=== PATIENT | female | born 1975 | race Caucasian/White ===

== ENCOUNTER 2024-08-05 13:38 | Outpatient (CLI) | payer OTHER, SELFPAY ==
--- NOTE | 2024-08-05 14:46 | ECG_ITS ---
Test Date: 2024-08-05 15:02:47 Measurements Intervals [place] Rate: 82 P: 26 NM: 124 QRS: -50 QRSD: 90 T: -15 QT: 367 QTc: 431 Interpretive Statements SINUS RHYTHM INCOMPLETE RIGHT BUNDLE BRANCH BLOCK LOW QRS VOLTAGE IN PRECORDIAL LEADS LEFT ANTERIOR FASCICULAR BLOCK POOR R WAVE PROGRESSION, CONSIDER ANTERIOR INFARCT BORDERLINE ST-T WAVE ABNORMALITY- ANTERAOLAT/INF LEADS ABNORMAL ECG No previous ECG available for comparison Electronically Signed On 08-05-2024 15:39:46 NUMEROLOGIST by Gagandeep Card D.O.
[2024-08-05 15:16] LABS: Basophils Absolute Auto 0.1 K/mm3 (0.0-0.1); Basophils Percent Auto 0.9 % (0.2-1.2); Eosinophils Absolute Auto 0.3 K/mm3 (0-0.3); Eosinophils Percent Auto 2.5 % (0-4.4); Hematocrit 44.6 % (37.0-47.0); Immature Granulocyte Absolute 0.08 K/mm3 (0.00-0.031); Immature Granulocyte Percent A 0.7 % (0-0.5); Lymphocytes Absolute Auto 3.24 K/mm3 (0.9-3.2); Mean Corpuscular HGB Conc 31.4 g/dl (32-36); Mean Corpuscular Hemoglobin 27.6 pg (26-34); Mean Platelet Volume 11.1 fl (7.4-10.4); Monocytes Absolute Auto 0.7 K/mm3 (0.1-0.6); Monocytes Percent Auto 6.4 % (2.6-8.5); Neutrophils Absolute Auto 6.8 K/mm3 (1.3-6.7); Neutrophils Percent Auto 60.5 % (45.5-73.1); Platelet Count Result 288 k/mm3 (150-375); Red Blood Count 5.07 M/mm3 (4.2-5.4); Red Cell Distribution Width 13.2 % (11.5-14.5); White Blood Count 11.2 K/mm3 (4.5-10.0)
[2024-08-05 15:33] LABS: Albumin Level 4.3 g/dL (3.5-5.1)
[2024-08-05 15:38] LABS: Urine Cotinine NEGATIVE
[2024-08-05 15:39] LABS: Anion Gap 6 mmol/L (4-12); Blood Urea Nitrogen 7 mg/dL (7-17); Calcium 8.9 mg/dL (8.4-10.2); Carbon Dioxide 27 mmol/L (22-30); Chloride 103 mmol/L (98-107); Estimated Glomerular Filt Rate > 60; Glucose 87 mg/dL (65-110); Potassium 3.5 mmol/L (3.4-5.0); Sodium 136 mmol/L (137-145)
[2024-08-05 16:27] LABS: MRSA (PCR) NOT DETECTED (NOT DETECTE)
== END 2024-08-05 13:39 | disposition home or self-care (01) ==
PROVIDERS: Anesthesiology; PCP Family Medicine; Visit Provider Orthopaedic Surgery
DX: M17.11 Unilateral primary osteoarthritis, right knee (principal); I10 Essential (primary) hypertension; Z01.818 Encounter for other preprocedural examination
CPT/HCPCS: 36415; 80048; 80307; 82040; 85025; 86850; 86900; 86901; 87641; 93005

== ENCOUNTER 2024-10-13 12:09 | Outpatient (CLI) | payer BC, SELFPAY ==
[2024-10-13 12:42] LABS: Basophils Absolute Auto 0.1 K/mm3 (0.0-0.1); Basophils Percent Auto 1.4 % (0.2-1.2); Eosinophils Absolute Auto 0.2 K/mm3 (0-0.3); Eosinophils Percent Auto 2.7 % (0-4.4); Hematocrit 45.4 % (37.0-47.0); Hemoglobin 14.5 g/dL (12.0-15.0); Immature Granulocyte Absolute 0.04 K/mm3 (0.00-0.031); Immature Granulocyte Percent A 0.5 % (0-0.5); Lymphocytes Absolute Auto 2.18 K/mm3 (0.9-3.2); Lymphocytes Percent Auto 28.1 % (18.3-44.2); Mean Corpuscular HGB Conc 31.9 g/dl (32-36); Mean Corpuscular Hemoglobin 28.2 pg (26-34); Mean Corpuscular Volume 88.3 fl (80-100); Mean Platelet Volume 10.7 fl (7.4-10.4); Monocytes Absolute Auto 0.5 K/mm3 (0.1-0.6); Monocytes Percent Auto 5.8 % (2.6-8.5); Neutrophils Absolute Auto 4.8 K/mm3 (1.3-6.7); Neutrophils Percent Auto 61.5 % (45.5-73.1); Platelet Count Result 285 k/mm3 (150-375); Red Blood Count 5.14 M/mm3 (4.2-5.4); White Blood Count 7.8 K/mm3 (4.5-10.0)
[2024-10-13 12:52] LABS: Anion Gap 9 mmol/L (4-12); Blood Urea Nitrogen 13 mg/dL (7-17); Calcium 8.7 mg/dL (8.4-10.2); Carbon Dioxide 24 mmol/L (22-30); Chloride 106 mmol/L (98-107); Estimated Glomerular Filt Rate > 60; Glucose 88 mg/dL (65-110); Potassium 4.2 mmol/L (3.4-5.0); Sodium 139 mmol/L (137-145)
[2024-10-13 12:59] LABS: Urine Cotinine NEGATIVE
[2024-10-13 13:49] LABS: MRSA (PCR) NOT DETECTED (NOT DETECTE)
== END 2024-10-13 12:10 | disposition home or self-care (01) ==
LOC: ANHSURGERY 12:11
PROVIDERS: Anesthesiology; PCP Family Medicine; Visit Provider Orthopaedic Surgery
DX: M17.11 Unilateral primary osteoarthritis, right knee (principal); Z01.818 Encounter for other preprocedural examination
CPT/HCPCS: 36415; 80048; 80307; 82040; 85025; 86850; 86900; 86901; 87641

== ENCOUNTER 2024-10-26 02:50 | Day surgery (SDC) | payer BC, SELFPAY ==
--- NOTE | 2024-08-05 13:46 | PC.NURSE ---
Report to the Outpatient Waiting Room, entrance under the green pavilion located off [facility], at time _6 AM on date _08/15/24 . Planned Procedure Time: _7:30 AM .? Time changes happen often and if your time is changed the preop area will call you the afternoon before. - You and your visitor will be asked to self-screen and do not enter if you have any COVID symptoms. Please call surgeon if you need to reschedule. - A mask is optional within the hospital at this time. Patients may have clear liquids (water, carbonated beverages, clear teas, apple juice) until 3 hours prior to surgery( 4:30 AM) with a maximum of 20 ounces. - No food from midnight until time of surgery and no smoking. This includes no chewing gum, candy or mints. - Infants may have breast milk until 4 hours before surgery, infant formula 6 hours prior to surgery. - Children will be allowed to drink immediately following surgery.? If applicable, please bring a bottle or sippy cup to assist with drinking. Juice, water, soda, and popsicles are readily available.? For infants on formula, please bring formula the day of surgery.? Pacifiers are allowed. Take only the following medications with a SIP of water on the morning of surgery: __AMLODIPINE,BUSPIRONE,CITALOPRAM,QUETIAPINE DO NOT STOP ANY OF YOUR OTHER PRESCRIPTION MEDICATIONS PRIOR TO SURGERY EXCEPT THE FOLLOWING Medications to discontinue per physician ___MELOXICAM PER DR GARRIDO Please no make-up, nail egyptian, hairspray, perfume, deodorant, or body powder the day of surgery.? No jewelry (including any body piercings) or valuables the day of surgery, leave them at home.? Please take a shower or bath the night before, or the morning of, surgery with an antibacterial soap.? Wear comfortable, loose fitting clothing.? Children are encouraged to wear pajamas. - Jewelry must be removed prior to entering the operating room.? Rings and piercings that are not removed may be cut off. - The hospital will not accept responsibility for valuables.? - Please leave all valuables, including medications, at home the day of surgery. If you are going home after surgery, a licensed student truck driver must drive you home.? - NO public transportation without another adult if you receive anesthesia. - We recommend that an adult stay with you for 24 hours following discharge. - We also recommend that you do not drive, make important decision, drink alcoholic beverages, or take any drugs that were not prescribed by your health care provider for at least 24 hours after your discharge time. Follow any additional instructions given to you from your surgeon. VERBAL AND WRITTEN instructions given to _PATIENT and asked if any additional questions and then verbalized understanding. Patient advised to call surgeon office or pre surgery nurse liaison [phone] if any additional questions.
[2024-08-05 13:52] VITALS: BMI 39.1
[2024-08-05 14:45] VITALS: BP 171/93; PULSE 87; RESP 18; TEMP 37.1; O2SAT 99
--- NOTE | 2024-08-11 07:24 | PM.IMHP ---
H&P: HPI History of Present Illness Date/Time: 08/11/24 07:24 Chief Complaint: Patient has osteoarthritis of her right knee. She has been unresponsive to conservative treatment. She is to the point where she would like to consider knee replacement surgery. Will proceed per her request. Review of Systems Musculoskeletal: Musculoskeletal: Reports arthralgias, Reports joint swelling and Reports stiffness PMFSH Past Medical History Medical History Hypoglycemia Family History Family History Mother Family history of migraine headaches Father No problems noted. Sibling No problems noted. Social History Social History (Updated 07/19/24 @ 07:41 by Merary Navarro CMA) Smoking status: Never smoker Second hand tobacco smoke exposure: Yes Additional smoking assessment comments: DENIES ANY FORM OF TOBACCO USE Alcohol intake: never Substance use: never Substance use type: does not use Do You Feel Safe in your Home?: Yes Lack of Transportation: No Lack of Food: Sometimes True Current Housing: I Have Housing Concerned About Future Housing: No Difficulty Paying Gas/Electric Bills: No Difficulty Paying for Meds: No Currently Unemployed: No Education: High School Diploma/GED Difficulty w/ Childcare or Family Care: No Living arrangements: with family Occupation/Education: occupation Additional occupation/education comments: [employer] Gender identity (if verbalized by the patient): Female Spiritual care concerns: No Meds Home Medications and Allergies Home Medications Medication Instructions Recorded Confirmed Type amlodipine 5 mg tablet 5 mg PO DAILY 06/16/24 08/05/24 History citalopram 40 mg tablet 40 mg PO QAM 06/16/24 08/05/24 History cyclobenzaprine 10 mg tablet 10 mg PO PRN PRN Muscle Pain 06/16/24 08/05/24 History fluticasone propionate 50 2 spray intranasal PRN PRN Allergy 06/16/24 08/05/24 History mcg/actuation nasal Symptoms spray,suspension hydrochlorothiazide 25 mg tablet 25 mg PO HS 06/16/24 08/05/24 History loratadine 10 mg tablet 10 mg PO DAILY 06/16/24 08/05/24 History meloxicam 7.5 mg tablet 7.5 mg PO DAILY 06/16/24 08/05/24 History metronidazole 0.75 % topical gel 0.75 applic topical PRN PRN ROSACEA 06/16/24 08/05/24 History ondansetron 8 mg disintegrating 8 mg PO PRN PRN Nausea 06/16/24 08/05/24 History tablet quetiapine 25 mg tablet 25 mg PO QAM 06/16/24 08/05/24 History sumatriptan succinate 50 mg tablet 50 mg PO PRN PRN Migraine Headache 06/16/24 08/05/24 History tramadol 50 mg tablet 50 mg PO PRN PRN Pain 06/16/24 08/05/24 History buspirone 10 mg tablet 10 mg PO DAILY 08/05/24 08/05/24 History polyethylene glycol 3350 17 17 g PO DAILY 08/05/24 08/05/24 History gram/dose oral powder spironolactone 25 mg tablet 25 mg PO DAILY 08/05/24 08/05/24 History Allergies Allergy/AdvReac Type Severity Reaction Status Date / Time No Known Allergies Allergy Verified 08/05/24 13:53 Exam Narrative: Patient has pain with any manipulation of her knee. She has motion from about 3-110 degrees. She has varus deformity and grinding crepitus and pain. She walks with an antalgic gait. Eyes: General: appearance normal, both eyes and all related structures Neck: Neck: supple Resp: Effort & Inspection: normal respiratory effort Cardio: Rate: regular rate Rhythm: regular rhythm Radiology Reports: Comments: 06/16/24 07:02 XR knee RT 3V Routine Interpretation: AP lateral skyline view right knee demonstrates cfkh-no-xsia arthritis medially. No fracture, lesions, or masses are appreciated. Knee X-Ray 06/16/24 Orthopedics Result Report 06/16/24 Assessment and Plan Assessment and plan (1) Osteoarthritis of right knee: Code(s): M17.11 - Unilateral primary osteoarthritis, right knee Status: Acute Assessment and Plan: Patient has osteoarthritis of her right knee. She has aebx-qf-vfef change with varus deformity. She has failed conservative treatment like to consider knee replacement surgery. Discussed this with her in detail risks benefits limitations and alternatives. Will proceed per her request.
[2024-10-13 08:58] VITALS: BMI 37.8
--- NOTE | 2024-10-13 09:22 | PC.NURSE ---
Report to the Outpatient Waiting Room, entrance under the green pavilion located off [facility], at time ___6:00AM____ on date ___10/26/24____. Planned Procedure Time: ___7:30AM .? Time changes happen often and if your time is changed the preop area will call you the afternoon before. - You and your visitor will be asked to self-screen and do not enter if you have any COVID symptoms. Please call surgeon if you need to reschedule. - A mask is optional within the hospital at this time. Patients may have clear liquids (water, carbonated beverages, clear teas, apple juice) until 3 hours prior to surgery with a maximum of 20 ounces. - No food from midnight until time of surgery and no smoking. This includes no chewing gum, candy or mints. Take only the following medications with a SIP of water on the morning of surgery: ____AMLODIPINE, BUSPIRONE, CITALOPRAM DO NOT STOP ANY OF YOUR OTHER PRESCRIPTION MEDICATIONS PRIOR TO SURGERY EXCEPT THE FOLLOWING Medications to discontinue per physician ____HOLD MELOXICAM 7 DAYS PRE-OP PER DR GARRIDO Date to take last dose 10/18/24 Please no make-up, nail vietnamese, hairspray, perfume, deodorant, or body powder the day of surgery.? No jewelry (including any body piercings) or valuables the day of surgery, leave them at home.? Please take a shower or bath the night before, or the morning of, surgery with an antibacterial soap.? Wear comfortable, loose fitting clothing.? . - Jewelry must be removed prior to entering the operating room.? Rings and piercings that are not removed may be cut off. - The hospital will not accept responsibility for valuables.? - Please leave all valuables, including medications, at home the day of surgery. If you are going home after surgery, a licensed charter coach driver must drive you home.? - NO public transportation without another adult if you receive anesthesia. - We recommend that an adult stay with you for 24 hours following discharge. - We also recommend that you do not drive, make important decision, drink alcoholic beverages, or take any drugs that were not prescribed by your health care provider for at least 24 hours after your discharge time. Follow any additional instructions given to you from your surgeon. Telephone instructions given to ____PATIENT and asked if any additional questions and then verbalized understanding. Patient advised to call surgeon office or pre surgery nurse liaison [phone] if any additional questions.
--- NOTE | 2024-10-25 08:36 | P.HP_ITS ---
H&P: HPI History of Present Illness Date/Time: 10/25/24 08:36 Chief Complaint: Patient has hzri-sx-rrwa arthritis right knee. She has failed conservative treatment like to proceed with knee replacement surgery. Review of Systems Musculoskeletal: Musculoskeletal: Reports arthralgias, Reports joint swelling and Reports stiffness Neurologic: Reports abnormal gait [facility] Past Medical History Medical History Hypoglycemia Family History Family History Mother Family history of migraine headaches Father No problems noted. Sibling No problems noted. Social History Social History (Updated 07/19/24 @ 07:41 by Merary Navarro [facility]) Smoking status: Never smoker Second hand tobacco smoke exposure: Yes Additional smoking assessment comments: DENIES ANY FORM OF TOBACCO USE Alcohol intake: never Substance use: never Substance use type: does not use Do You Feel Safe in your Home?: Yes Lack of Transportation: No Lack of Food: Sometimes True Current Housing: I Have Housing Concerned About Future Housing: No Difficulty Paying Gas/Electric Bills: No Difficulty Paying for Meds: No Currently Unemployed: No Education: High School Diploma/GED Difficulty w/ Childcare or Family Care: No Living arrangements: with friend(s) Additional living arrangements comments: 2 ROOMMATES Occupation/Education: occupation Additional occupation/education comments: [employer] Gender identity (if verbalized by the patient): Female Spiritual care concerns: No Meds Home Medications and Allergies Home Medications ?Medication ?Instructions ?Recorded ?Confirmed ?Type amlodipine 5 mg tablet 5 mg PO DAILY 06/16/24 08/05/24 History citalopram 40 mg tablet 40 mg PO QAM 06/16/24 08/05/24 History cyclobenzaprine 10 mg tablet 10 mg PO PRN PRN Muscle Pain 06/16/24 08/05/24 History fluticasone propionate 50 2 spray intranasal PRN PRN Allergy 06/16/24 08/05/24 History mcg/actuation nasal Symptoms spray,suspension hydrochlorothiazide 25 mg tablet 25 mg PO HS 06/16/24 08/05/24 History loratadine 10 mg tablet 10 mg PO DAILY 06/16/24 08/05/24 History meloxicam 7.5 mg tablet 7.5 mg PO DAILY 06/16/24 08/05/24 History metronidazole 0.75 % topical gel 0.75 applic topical PRN PRN ROSACEA 06/16/24 08/05/24 History ondansetron 8 mg disintegrating 8 mg PO PRN PRN Nausea 06/16/24 08/05/24 History tablet quetiapine 25 mg tablet 25 mg PO QAM PRN insomnia 06/16/24 10/13/24 History sumatriptan succinate 50 mg tablet 50 mg PO PRN PRN Migraine Headache 06/16/24 08/05/24 History tramadol 50 mg tablet 50 mg PO PRN PRN Pain 06/16/24 08/05/24 History buspirone 10 mg tablet 10 mg PO DAILY 08/05/24 08/05/24 History polyethylene glycol 3350 17 17 g PO DAILY PRN constipation 08/05/24 10/13/24 History gram/dose oral powder spironolactone 25 mg tablet 25 mg PO DAILY 08/05/24 10/13/24 History Allergies Allergy/AdvReac Type Severity Reaction Status Date / Time No Known Allergies Allergy Verified 10/13/24 08:51 Exam Narrative: Patient has motion of her knee from about 3 to 110?. She has varus deformity. She has grinding crepitus and pain with manipulation. She walks with an antalgic gait. Radiology Reports: Comments: [place] [address] Tal Greenberg M.D. Orthopedics XRay Report Ambulatory Signed Patient: Hussain Ch Results of Diagnostic Exam (Interpreted Today) Order: 06/16/24 07:02 XR knee RT 3V Routine Interpretation: AP lateral skyline view right knee demonstrates gjhu-cm-uocu arthritis medially. No fracture, lesions, or masses are appreciated. This report may have been done utilizing a voice recognition system. Attempts have been made to correct errors. However, there may be uncorrected grammatical, spelling, and recognition errors present. Documented By: Tal Greenberg MD 06/16/24 1402 Signed By: <Electronically signed by Tal Greenberg MD> 06/16/24 3217 2 Knee X-Ray 06/16/24 Orthopedics Result Report 06/16/24 Assessment and Plan Assessment and plan (1) Osteoarthritis of right knee: Code(s): M17.11 - Unilateral primary osteoarthritis, right knee Status: Acute Assessment and Plan: Patient has qkre-ik-njbx arthritis of her right knee. She failed conservative treatment and would like to proceed with knee replacement surgery. I have discussed this with her at length. We discussed risks, benefits, limitations, and alternatives in detail. She understands and agrees with and would like to proceed. Will proceed with total knee arthroplasty on the right.
[2024-10-26] VITALS (12 sets, daily range): BP systolic 116–177; BP diastolic 60–93; PULSE 88–108; RESP 12–20; TEMP 36.4–36.9; O2SAT 92–99
--- NOTE | ~2024-10-26 | XR_ITS ---
EXAMINATION: [id number] DATE: 10/26/2024 10:14 INDICATION: Postoperative evaluation following right total knee arthroplasty. TECHNIQUE: Anteroposterior and lateral views of the right knee were obtained. COMPARISON: None. FINDINGS: Right total knee arthroplasty with patellar resurfacing appears well seated and in near anatomic alig nment. No fractures identified. Anterior skin des and expected postoperative subcutaneous and in tra-articular gas. IMPRESSION: 1. Right total knee arthroplasty, negative for postoperative purposes. Reviewed, dictated and finalized at location A. ICAL SUPERVISOR
--- OUTSIDE RECORDS SUMMARY | 2024-10-26 02:53 | XMS_ITS | Encounter Summary ---
Author Organization [facility] Address [address] [place] [address] Care Team Providers Care Housekeeping Room Inspector Name Role Phone Zach Rhodes MD Primary Care Provider [phone] Encounter Details Date Type Department Care Team (Late Contact Info) Description 02/29/2024 [employer] Message Enc [facility] Medical Group Family & Internal Medicine [facility] [address] [place] [address] [place] [address] [place] [address] Insurance Social History Tobacco Use Types Packs/Day Years Used Date Smoking Tobacco: Never Smokeless Tobacco: Never Comments:no hx tobacco Alcohol Use Standard Drinks/Week Comments Yes 0 (1 standard drink = 0.6 oz pur e alcohol) RARE PHQ-2 Answer Date Recorded Patient Health Questionnaire-2 Score 6 06/11/2023 Education Answer Date Recorded What is the highest level of school you have completed or the highest degree you have received? High school graduate 11/25/2018 Comments No Sex and Gender Information Value Date Recorded Sex Assigned at Not on file Legal Sex Female 8:31 PM CDT Gender Identity Not on file Sexual Orientation Not on file Occupation Industry Job Start Date Job End Date Not on file Not on file Not on file Not on file documented as of this encounter Plan of Treatment Upcoming Encounters Date Type Department Care Team (Late Contact Info) Description 10/31/2024 1:00 PM HEAD BANDER AND LINER OPERATOR Appointment [facility] [address] [place] [address] [place] [address] [place] [address] Tal Greenberg MD [address] [facility] [address] [place] [address] 11/02/2024 1:45 PM HEAD BANDER AND LINER OPERATOR Appointment [facility] [address] [place] [address] Tal Greenberg MD [address] [facility] [address] [place] [address] Marielle Gaming, COFFEE ROASTER HELPER 11/04/2024 1:45 PM HEAD BANDER AND LINER OPERATOR Appointment [facility] [address] [place] [address] Tal Greenberg MD [facility] [address] [place] [address] Marielle Gaming, COFFEE ROASTER HELPER 11/07/2024 3:00 PM HEAD BANDER AND LINER OPERATOR Appointment [facility] [address] [place] [address] [place] [address] [place] [address] Tal Greenberg MD [address] [facility] [address] [place] [address] 11/09/2024 1:45 PM HEAD BANDER AND LINER OPERATOR Appointment [facility] [address] [place] [address] Tal Greenberg MD [address] [facility] [address] [place] [address] Marielle Gaming, COFFEE ROASTER HELPER 11/11/2024 1:45 PM HEAD BANDER AND LINER OPERATOR Appointment [facility] [address] [place] [address] Tal Greenberg MD [address] [facility] [address] [place] [address] Marielle Gaming, COFFEE ROASTER HELPER 11/14/2024 1:45 PM HEAD BANDER AND LINER OPERATOR Appointment [facility] [address] [place] [address] Tal Greenberg MD [address] [facility] [address] [place] [address] Marielle Gaming, COFFEE ROASTER HELPER 11/16/2024 1:45 PM HEAD BANDER AND LINER OPERATOR Appointment [facility] [address] [place] [address] Tal Greenberg MD [address] [facility] [address] [place] [address] [place] [address] [place] [address] 11/18/2024 1:45 PM HEAD BANDER AND LINER OPERATOR Appointment [facility] [address] [place] [address] [place] [address] [place] [address] Tal Greenberg MD [address] [facility] [address] [place] [address] 11/21/2024 1:00 PM HEAD BANDER AND LINER OPERATOR Appointment [facility] [address] [place] [address] [place] [address] [place] [address] Tal Greenberg MD [address] [facility] [address] [place] [address] 11/23/2024 1:45 PM HEAD BANDER AND LINER OPERATOR Appointment [facility] [address] [place] [address] Tal Greenberg MD [address] [facility] [address] [place] [address] Marielle Gaming PTA 11/25/2024 1:45 PM HEAD BANDER AND LINER OPERATOR Appointment [facility] [address] [place] [address] Tal Greenberg MD [address] [facility] [address] [place] [address] Marielle Gaming PTA documented as of this encounter Visit Diagnoses Not on filedocumented in this encounter Additional Health Concerns Assessment Noted Time PHQ-9 Depression Total Score: 6 06/11/20 23 9:22 AM CDT documented as of this encounter Care Teams Housekeeping Room Inspector Relationship Specialty [place] [address] [place] [address] PCP - General FAMILY PRACTICE 09/27/18 documented as of this encounter
--- OUTSIDE RECORDS SUMMARY | 2024-10-26 02:53 | XMS_ITS | Encounter Summary ---
Author Organization [facility] Address [address] [place] [address] Care Team Providers Care Band Straightener Name Role Phone Zach Rhodes MD Primary Care Provider [phone] Encounter Details Date Type Department Care Team (Late Contact Info) Description 01/20/2019 watAgamehart Message Enc [facility] Medical Group Family & Internal Medicine [facility] [address] [place] [address] [place] [address] [place] [address] RE: Medication Questions Social History Tobacco Use Types Packs/Day Years Used Date Smoking Tobacco: Never Smokeless Tobacco: Never Alcohol Use Standard Drinks/Week Comments Yes 0 (1 standard drink = 0.6 oz pur e alcohol) RARE PHQ-2 Answer Date Recorded PHQ-2 Score 0 01/19/2019 Education Answer Date Recorded What is the [...] (Late Contact Info) Description 10/31/2024 1:00 PM INDUSTRIAL LABORER Appointment [facility] [address] [place] [address] [place] [address] [place] [address] Tal Greenberg MD [address] [facility] [address] [place] [address] 11/02/2024 1:45 PM INDUSTRIAL LABORER Appointment [facility] [address] [place] [address] Tal Greenberg MD [address] [facility] [address] [place] [address] Marielle Gaming, AQUATIC CENTRE MANAGER 11/04/2024 1:45 PM INDUSTRIAL LABORER Appointment [facility] [address] [place] [address] Tal Greenberg MD [facility] [address] [place] [address] Marielle Gaming, AQUATIC CENTRE MANAGER 11/07/2024 3:00 PM INDUSTRIAL LABORER Appointment [facility] [address] [place] [address] [place] [address] [place] [address] Tal Greenberg MD [facility] [address] [place] [address] 11/09/2024 1:45 PM INDUSTRIAL LABORER Appointment [facility] [address] [place] [address] Tal Greenberg MD [address] [facility] [address] [place] [address] Marielle Gaming, AQUATIC CENTRE MANAGER 11/11/2024 1:45 PM INDUSTRIAL LABORER Appointment [facility] [address] [place] [address] Tal Greenberg MD [address] [facility] [address] [place] [address] Marielle Gaming, AQUATIC CENTRE MANAGER 11/14/2024 1:45 PM INDUSTRIAL LABORER Appointment [facility] [address] [place] [address] Tal Greenberg MD [address] [facility] [address] [place] [address] Marielle Gaming, AQUATIC CENTRE MANAGER 11/16/2024 1:45 PM INDUSTRIAL LABORER Appointment [facility] [address] [place] [address] Tal Greenberg MD [address] [facility] [address] [place] [address] [place] [address] [place] [address] 11/18/2024 1:45 PM INDUSTRIAL LABORER Appointment [facility] [address] [place] [address] [place] [address] [place] [address] Tal Greenberg MD [address] [facility] [address] [place] [address] 11/21/2024 1:00 PM INDUSTRIAL LABORER Appointment [facility] [address] [place] [address] [place] [address] [place] [address] Tal Greenberg MD [address] [facility] [address] [place] [address] 11/23/2024 1:45 PM INDUSTRIAL LABORER Appointment [facility] [address] [place] [address] Tal Greenberg MD [address] [facility] [address] [place] [address] Marielle Gaming PTA 11/25/2024 1:45 PM INDUSTRIAL LABORER Appointment [facility] [address] [place], [place] [address] Tal Greenberg MD [address] [facility] [address] [place] [address] Marielle Gaming PTA documented as of this encounter Visit Diagnoses Not on filedocumented in this encounter Additional Health Concerns Infection Onset Date Last Indicated Resolved Time COVID-19 Rule Out 09/09/2022 09/09/2022 09/09/2022 9:17 AM INDUSTRIAL LABORER documented as of this encounter Care Teams Band Straightener Relationship Specialty [place] [address] [place] [address] PCP - General FAMILY PRACTICE 09/27/18 documented as of this encounter
--- OUTSIDE RECORDS SUMMARY | 2024-10-26 02:53 | XMS_ITS | Encounter Summary ---
Author Organization [facility] Address [address] [place] [address] Care Team Providers Care Forestry Biology Specialist Name Role Phone Zach Rhodes MD Primary Care Provider [phone] Encounter Details Date Type Department Care Team (Late Contact Info) Description 11/10/2023 INDIGO Bioscienceshart Message Enc [facility] Medical Group Family & Internal Medicine [facility] [address] [place] [address] [place] [address] [place] [address] Medicane Social History Tobacco Use Types Packs/Day Years [...] (Late Contact Info) Description 10/31/2024 1:00 PM FRONT END WEB DEVELOPER Appointment [facility]hab [address] [place] [address] [place] [address] [place] [address] Tal Greenberg MD 4804 [facility] [address] [place] [address] 11/02/2024 1:45 PM FRONT END WEB DEVELOPER Appointment [facility] [address] [place] [address] Tal Greenberg MD 4804 [facility] [address] [place] [address] Marielle Gaming, PELLET PRESS OPERATOR 11/04/2024 1:45 PM FRONT END WEB DEVELOPER Appointment [facility] [address] [place] [address] Tal Greenberg MD [facility] [address] [place] [address] Marielle Gaming, PELLET PRESS OPERATOR 11/07/2024 3:00 PM FRONT END WEB DEVELOPER Appointment [facility] [address] [place] [address] [place] [address] [place] [address] Tal Greenberg MD 4804 [facility] [address] [place] [address] 11/09/2024 1:45 PM FRONT END WEB DEVELOPER Appointment [facility] [address] [place] [address] Tal Greenberg MD 4804 [facility] [address] [place] [address] Marielle Gaming, PELLET PRESS OPERATOR 11/11/2024 1:45 PM FRONT END WEB DEVELOPER Appointment [facility] [address] [place] [address] Tal Greenberg MD 4804 [facility] [address] [place] [address] Marielle Gaming, PELLET PRESS OPERATOR 11/14/2024 1:45 PM FRONT END WEB DEVELOPER Appointment [facility] [address] [place] [address] Tal Greenberg MD 4804 [facility] [address] [place] [address] Marielle Gaming, PELLET PRESS OPERATOR 11/16/2024 1:45 PM FRONT END WEB DEVELOPER Appointment [facility] [address] [place] [address] Tal Greenberg MD [facility] [address] [place] [address] [place] [address] [place] [address] 11/18/2024 1:45 PM FRONT END WEB DEVELOPER Appointment [facility] [address] [place] [address] [place] [address] [place] [address] Tal Greenberg MD 4804 [facility] [address] [place] [address] 11/21/2024 1:00 PM FRONT END WEB DEVELOPER Appointment [facility] [address] [place] [address] [place] [address] [place] [address] Tal Greenberg MD 4804 [facility] [address] [place] [address] 11/23/2024 1:45 PM FRONT END WEB DEVELOPER Appointment [facility]hab [address] [place] [address] Tal Greenberg MD 4804 [facility] [address] [place] [address] Marielle Gaming PTA 11/25/2024 1:45 PM FRONT END WEB DEVELOPER Appointment [facility]hab [address] [place] [address] Tal Greenberg MD 4804 [facility] [address] [place] [address] Marielle Gaming PTA documented as of this encounter Visit Diagnoses Not on filedocumented in this encounter Additional Health Concerns Assessment Noted Time PHQ-9 Depression Total Score: 6 06/11/20 23 9:22 AM CDT documented as of this encounter Care Teams Forestry Biology Specialist Relationship Specialty [place] [address] [place] [address] PCP - General FAMILY PRACTICE 09/27/18 documented as of this encounter
--- OUTSIDE RECORDS SUMMARY | 2024-10-26 02:53 | XMS_ITS | Encounter Summary ---
Author Organization [facility] Address [address] [place] [address] Care Team Providers Care Machinist Brake Name Role Phone Zach Rhodes MD Primary Care Provider [phone] Encounter Details Date Type Department Care Team (Late st Contact Info) Description 10/06/2019 MyChart Message Enc [facility] Medical Group Family & Internal Medicine [facility] [address] [place] [address] [place] [address] [place] [address] RE: Other Social History Tobacco Use Types Packs/Day Years [...] Encounters Date Type Department Care Team (Late st Contact Info) Description 10/31/2024 1:00 PM MENSWEAR SALESPERSON Appointment [facility]hab [address] [place] [address] [place] [address] [place] [address] Tal Greenberg MD 4804 [facility] [address] [place] [address] 11/02/2024 1:45 PM MENSWEAR SALESPERSON Appointment [facility] [address] [place] [address] Tal Greenberg MD 4804 [facility] [address] [place] [address] Marielle Gaming, BPM SOLUTION ARCHITECT 11/04/2024 1:45 PM MENSWEAR SALESPERSON Appointment [facility] [address] [place] [address] Tal Greenberg MD [facility] [address] [place] [address] Marielle Gaming, BPM SOLUTION ARCHITECT 11/07/2024 3:00 PM MENSWEAR SALESPERSON Appointment [facility] [address] [place] [address] [place] [address] [place] [address] Tal Greenberg MD 4804 [facility] [address] [place] [address] 11/09/2024 1:45 PM MENSWEAR SALESPERSON Appointment [facility] [address] [place] [address] Tal Greenberg MD 4804 [facility] [address] [place] [address] Marielle Gaming, BPM SOLUTION ARCHITECT 11/11/2024 1:45 PM MENSWEAR SALESPERSON Appointment [facility] [address] [place] [address] Tal Greenberg MD 4804 [facility] [address] [place] [address] Marielle Gaming, BPM SOLUTION ARCHITECT 11/14/2024 1:45 PM MENSWEAR SALESPERSON Appointment [facility] [address] [place] [address] Tal Greenberg MD 4804 [facility] [address] [place] [address] Marielle Gaming, BPM SOLUTION ARCHITECT 11/16/2024 1:45 PM MENSWEAR SALESPERSON Appointment [facility] [address] [place] [address] Tal Greenberg MD 5154 [facility] [address] [place] [address] [place] [address] [place] [address] 11/18/2024 1:45 PM MENSWEAR SALESPERSON Appointment [facility] [address] [place] [address] [place] [address] [place] [address] Tal Greebnerg MD 4806 [facility] [address] [place] [address] 11/21/2024 1:00 PM MENSWEAR SALESPERSON Appointment [facility] [address] [place] [address] [place] [address] [place] [address] Tal Greenberg MD 2274 [facility] [address] [place] [address] 11/23/2024 1:45 PM MENSWEAR SALESPERSON Appointment [facility]hab [address] [place] [address] Tal Greenberg MD 4804 [facility] [address] [place] [address] Marielle Gaming PTA 11/25/2024 1:45 PM MENSWEAR SALESPERSON Appointment [facility]patient [facility]hab [address] [place], [place] [address] Tal Greenberg MD 4804 [facility] [address] [place] [address] Marielle Gaming PTA documented as of this encounter Visit Diagnoses Not on filedocumented in this encounter Additional Health Concerns Infection Onset Date Last Indicated Resolved Time COVID-19 Rule Out 09/09/2022 09/09/2022 09/09/2022 9:17 AM MENSWEAR SALESPERSON documented as of this encounter Care Teams Machinist Brake Relationship Specialty [place] [address] [place] [address] PCP - General FAMILY PRACTICE 09/27/18 documented as of this encounter
--- OUTSIDE RECORDS SUMMARY | 2024-10-26 02:53 | XMS_ITS | Encounter Summary ---
Author Organization [facility] Address [address] [place] [address] Care Team Providers Care Public Opinion Survey Taker Name Role Phone Zach Rhodes MD Primary Care Provider [phone] Encounter Details Date Type Department Care Team (Late Contact Info) Description 10/06/2019 MyChart Message Enc [facility] Medical Group Family & Internal Medicine [facility] [address] [place] [address] [place] [address] [place] [address] Other Social History Tobacco Use Types Packs/Day [...] (Late Contact Info) Description 10/31/2024 1:00 PM PUFF IRON OPERATOR Appointment [facility] [address] [place] [address] [place] [address] [place] [address] Tal Greenberg MD [address] [facility] [address] [place] [address] 11/02/2024 1:45 PM PUFF IRON OPERATOR Appointment [facility] [address] [place] [address] Tal Greenberg MD [address] [facility] [address] [place] [address] Marielle Gaming, FIELD MACHINIST 11/04/2024 1:45 PM PUFF IRON OPERATOR Appointment [facility] [address] [place] [address] Tal Greenberg MD [address] [facility] [address] [place] [address] Marielle Gaming, FIELD MACHINIST 11/07/2024 3:00 PM PUFF IRON OPERATOR Appointment [facility] [address] [place] [address] [place] [address] [place] [address] Tal Greenberg MD [address] [facility] [address] [place] [address] 11/09/2024 1:45 PM PUFF IRON OPERATOR Appointment [facility] [address] [place] [address] Tal Greenberg MD [address] [facility] [address] [place] [address] Marielle Gaming, FIELD MACHINIST 11/11/2024 1:45 PM PUFF IRON OPERATOR Appointment [facility] [address] [place] [address] Tal Greenberg MD [address] [facility] [address] [place] [address] Marielle Gaming, FIELD MACHINIST 11/14/2024 1:45 PM PUFF IRON OPERATOR Appointment [facility] [address] [place] [address] Tal Greenberg MD [address] [facility] [address] [place] [address] Marielle Gaming, FIELD MACHINIST 11/16/2024 1:45 PM PUFF IRON OPERATOR Appointment [facility] [address] [place] [address] Tal Greenberg MD [facility] [address] [place] [address] [place] [address] [place] [address] 11/18/2024 1:45 PM PUFF IRON OPERATOR Appointment [facility] [address] [place] [address] [place] [address] [place] [address] Tal Greenberg MD [address] [facility] [address] [place] [address] 11/21/2024 1:00 PM PUFF IRON OPERATOR Appointment [facility] [address] [place] [address] [place] [address] [place] [address] Tal Greenberg MD [facility]4 [facility] [address] [place] [address] 11/23/2024 1:45 PM PUFF IRON OPERATOR Appointment [facility] [address] [place] [address] Tal Greenberg MD [address] [facility] [address] [place] [address] Marielle Gaming PTA 11/25/2024 1:45 PM PUFF IRON OPERATOR Appointment [facility] [address] [place], [place] [address] Tal Greenberg MD [address] [facility] [address] [place] [address] Marielle Gaming PTA documented as of this encounter Visit Diagnoses Not on filedocumented in this encounter Additional Health Concerns Infection Onset Date Last Indicated Resolved Time COVID-19 Rule Out 09/09/2022 09/09/2022 09/09/2022 9:17 AM PUFF IRON OPERATOR documented as of this encounter Care Teams Public Opinion Survey Taker Relationship Specialty [place] [address] [place] [address] PCP - General FAMILY PRACTICE 09/27/18 documented as of this encounter
--- OUTSIDE RECORDS SUMMARY | 2024-10-26 02:53 | XMS_ITS | Encounter Summary ---
Author Organization [facility] Address [address] [place] [address] Care Team Providers Care Paid Search Marketing Analyst Name Role Phone Zach Rhodes MD Primary Care Provider [phone] Encounter Details Date Type Department Care Team (Late Contact Info) Description 06/11/2023 Virtual Paperhart Message Enc [facility] Medical Group Family & Internal Medicine [facility] [address] [place] [address] [place] [address] [place] [address] Xray Social History Tobacco Use Types Packs/Day Years [...] (Late Contact Info) Description 10/31/2024 1:00 PM MEDIA PROMOTER Appointment [facility] Outpatient Rehab [address] [place] [address] [place] [address] [place] [address] Tal Greenberg MD 4804 [facility] [address] [place] [address] 11/02/2024 1:45 PM MEDIA PROMOTER Appointment [facility] [address] [place] [address] Tal Greenberg MD 4804 [facility] [address] [place] [address] Marielle Gaming, RN RECOVERY 11/04/2024 1:45 PM MEDIA PROMOTER Appointment [facility] [address] [place] [address] Tal Greenberg MD [facility]4 [facility] [address] [place] [address] Marielle Gaming, RN RECOVERY 11/07/2024 3:00 PM MEDIA PROMOTER Appointment [facility] [address] [place] [address] [place] [address] [place] [address] Tal Greenberg MD 4804 [facility] [address] [place] [address] 11/09/2024 1:45 PM MEDIA PROMOTER Appointment [facility] [address] [place] [address] Tal Greenberg MD 4804 [facility] [address] [place] [address] Marielel Gaming, RN RECOVERY 11/11/2024 1:45 PM MEDIA PROMOTER Appointment [facility] [address] [place] [address] Tal Greenberg MD 4804 [facility] [address] [place] [address] Marielle Gaming, RN RECOVERY 11/14/2024 1:45 PM MEDIA PROMOTER Appointment [facility] [address] [place] [address] Tal Greenberg MD 4804 [facility] [address] [place] [address] Marielle Gaming, RN RECOVERY 11/16/2024 1:45 PM MEDIA PROMOTER Appointment [facility] [address] [place] [address] Tal Greenberg MD [facility]4 [facility] [address] [place] [address] [place] [address] [place] [address] 11/18/2024 1:45 PM MEDIA PROMOTER Appointment [facility] [address] [place] [address] [place] [address] [place] [address] Tal Greenberg MD 4804 [facility] [address] [place] [address] 11/21/2024 1:00 PM MEDIA PROMOTER Appointment [facility] [address] [place] [address] [place] [address] [place] [address] Tal Greenberg MD 4804 [facility] [address] [place] [address] 11/23/2024 1:45 PM MEDIA PROMOTER Appointment [facility]hab [address] [place] [address] Tal Greenberg MD 4804 [facility] [address] [place] [address] Marielle Gaming PTA 11/25/2024 1:45 PM MEDIA PROMOTER Appointment [facility]patient [facility]hab [address] [place] [address] Tal Greenberg MD 4804 [facility] [address] [place] [address] Marielle Gaming PTA documented as of this encounter Visit Diagnoses Not on filedocumented in this encounter Additional Health Concerns Assessment Noted Time PHQ-9 Depression Total Score: 6 06/11/20 23 9:22 AM CDT documented as of this encounter Care Teams Paid Search Marketing Analyst Relationship Specialty [place] [address] [place] [address] PCP - General FAMILY PRACTICE 09/27/18 documented as of this encounter
--- OUTSIDE RECORDS SUMMARY | 2024-10-26 02:53 | XMS_ITS | Encounter Summary ---
Author Organization [facility] Address [address] [place] [address] Care Team Providers Care Raymond Mill Operator Name Role Phone Zach Rhodes MD Primary Care Provider [phone] Encounter Details Date Type Department Care Team (Late Contact Info) Description 03/21/2019 [employer]acomb Technologieshart Message Enc [facility] Medical Group Family & Internal Medicine [facility] [address] [place] [address] [place] [address] [place] [address] Other Social History Tobacco Use [...] (Late Contact Info) Description 10/31/2024 1:00 PM CHARGE LPN Appointment [facility]patient [facility]hab [address] [place] [address] [place] [address] [place] [address] Tal Greenberg MD 4804 [facility] [address] [place] [address] 11/02/2024 1:45 PM CHARGE LPN Appointment [facility] [address] [place] [address] Tal Greenberg MD 4804 [facility] [address] [place] [address] Marielle Gaming, CUSTODY OFFICER 11/04/2024 1:45 PM CHARGE LPN Appointment [facility] [address] [place] [address] Tal Greenberg MD 4804 [facility] [address] [place] [address] Marielle Gaming, CUSTODY OFFICER 11/07/2024 3:00 PM CHARGE LPN Appointment [facility] [address] [place] [address] [place] [address] [place] [address] Tal Greenberg MD 4804 [facility] [address] [place] [address] 11/09/2024 1:45 PM CHARGE LPN Appointment [facility] [address] [place] [address] Tal Greenberg MD 4804 [facility] [address] [place] [address] Marielle Gaming, CUSTODY OFFICER 11/11/2024 1:45 PM CHARGE LPN Appointment [facility] [address] [place] [address] Tal Greenberg MD 4804 [facility] [address] [place] [address] Marielle Gaming, CUSTODY OFFICER 11/14/2024 1:45 PM CHARGE LPN Appointment [facility] Outpatient Rehab [address] [place] [address] Tal Greenberg MD 4804 [facility] [address] [place] [address] Marielle Gaming, CUSTODY OFFICER 11/16/2024 1:45 PM CHARGE LPN Appointment [facility] [address] [place] [address] Tal Greenberg MD [facility] [address] [place] [address] [place] [address] [place] [address] 11/18/2024 1:45 PM CHARGE LPN Appointment [facility]patient [facility]hab [address] [place] [address] [place] [address] [place] [address] Tal Greenberg MD 4804 [facility] [address] [place] [address] 11/21/2024 1:00 PM CHARGE LPN Appointment [facility] [address] [place] [address] [place] [address] [place] [address] Tal Greenberg MD [facility] [address] [place] [address] 11/23/2024 1:45 PM CHARGE LPN Appointment [facility]patient [facility]hab [address] [place] [address] Tal Greenberg MD 4804 [facility] [address] [place] [address] Marielle Gaming PTA 11/25/2024 1:45 PM CHARGE LPN Appointment [facility]patient [facility]hab [address] [place], [place] [address] Tal Greenberg MD 4804 [facility] [address] [place] [address] Marielle Gaming PTA documented as of this encounter Visit Diagnoses Not on filedocumented in this encounter Additional Health Concerns Infection Onset Date Last Indicated Resolved Time COVID-19 Rule Out 09/09/2022 09/09/2022 09/09/2022 9:17 AM CHARGE LPN documented as of this encounter Care Teams Raymond Mill Operator Relationship Specialty [place] [address] [place] [address] PCP - General FAMILY PRACTICE 09/27/18 documented as of this encounter
--- OUTSIDE RECORDS SUMMARY | 2024-10-26 02:53 | XMS_ITS | Encounter Summary ---
Author Organization [facility] Address [address] [place] [address] Care Team Providers Care Strap Stitcher Name Role Phone Zach Rhodes MD Primary Care Provider [phone] Encounter Details Date Type Department Care Team (Late Contact Info) Description 07/07/2023 Sentilliont Message Enc [facility] Medical Group Family & Internal Medicine [facility] [address] [place] [address] [place] [address] [place] [address] Mamgram Social History Tobacco Use Types Packs/Day Years [...] (Late Contact Info) Description 10/31/2024 1:00 PM ORACLE PROGRAMMER ANALYST Appointment [facility] [address] [place] [address] [place] [address] [place] [address] Tal Greenberg MD 4804 [facility] [address] [place] [address] 11/02/2024 1:45 PM ORACLE PROGRAMMER ANALYST Appointment [facility] [address] [place] [address] Tal Greenberg MD 4804 [facility] [address] [place] [address] Marielle Gaming, EARLY INTERVENTION SPECIALIST 11/04/2024 1:45 PM ORACLE PROGRAMMER ANALYST Appointment [facility] [address] [place] [address] Tal Greenebrg MD [facility] [address] [place] [address] Marielle Gaming, EARLY INTERVENTION SPECIALIST 11/07/2024 3:00 PM ORACLE PROGRAMMER ANALYST Appointment [facility] [address] [place] [address] [place] [address] [place] [address] Tal Greenberg MD 4804 [facility] [address] [place] [address] 11/09/2024 1:45 PM ORACLE PROGRAMMER ANALYST Appointment [facility] [address] [place] [address] Tal Greenberg MD 4804 [facility] [address] [place] [address] Marielle Gaming, EARLY INTERVENTION SPECIALIST 11/11/2024 1:45 PM ORACLE PROGRAMMER ANALYST Appointment [facility] [address] [place] [address] Tal Greenberg MD 4804 [facility] [address] [place] [address] Marielle Gaming, EARLY INTERVENTION SPECIALIST 11/14/2024 1:45 PM ORACLE PROGRAMMER ANALYST Appointment [facility] [address] [place] [address] Tal Greenberg MD 4804 [facility] [address] [place] [address] Marielle Gaming, EARLY INTERVENTION SPECIALIST 11/16/2024 1:45 PM ORACLE PROGRAMMER ANALYST Appointment [facility] [address] [place] [address] Tal Greenberg MD [facility] [address] [place] [address] [place] [address] [place] [address] 11/18/2024 1:45 PM ORACLE PROGRAMMER ANALYST Appointment [facility] [address] [place] [address] [place] [address] [place] [address] Tal Greenberg MD 4804 [facility] [address] [place] [address] 11/21/2024 1:00 PM ORACLE PROGRAMMER ANALYST Appointment [facility] [address] [place] [address] [place] [address] [place] [address] Tal Greenberg MD 4804 [facility] [address] [place] [address] 11/23/2024 1:45 PM ORACLE PROGRAMMER ANALYST Appointment [facility] [address] [place] [address] Tal Greenberg MD 4804 [facility] [address] [place] [address] Marielle Gaming PTA 11/25/2024 1:45 PM ORACLE PROGRAMMER ANALYST Appointment [facility] [address] [place] [address] Tal Greenberg MD 4804 [facility] [address] [place] [address] Marielle Gaming PTA documented as of this encounter Visit Diagnoses Not on filedocumented in this encounter Additional Health Concerns Assessment Noted Time PHQ-9 Depression Total Score: 6 06/11/20 23 9:22 AM CDT documented as of this encounter Care Teams Strap Stitcher Relationship Specialty [place] [address] [place] [address] PCP - General FAMILY PRACTICE 09/27/18 documented as of this encounter
--- OUTSIDE RECORDS SUMMARY | 2024-10-26 02:53 | XMS_ITS | Encounter Summary ---
Author Organization [facility] Address [address] [place] [address] Care Team Providers Care Diversity Intern Name Role Phone Zach Rhodes MD Primary Care Provider [phone] Encounter Details Date Type Department Care Team (Late Contact Info) Description 07/02/2019 Datamarst Message Enc [facility] Medical Group Family & Internal Medicine [facility] [address] [place] [address] [place] [address] [place] [address] RE: Question Social History Tobacco Use Types Packs/Day Years [...] (Late Contact Info) Description 10/31/2024 1:00 PM RN IMMUNOLOGY Appointment [facility] [address] [place] [address] [place] [address] [place] [address] Tal Greenberg MD 4804 [facility] [address] [place] [address] 11/02/2024 1:45 PM RN IMMUNOLOGY Appointment [facility] [address] [place] [address] Tal Greenberg MD 4804 [facility] [address] [place] [address] Marielle Gaming, RN TRAVELING 11/04/2024 1:45 PM RN IMMUNOLOGY Appointment [facility] [address] [place] [address] Tal Greenberg MD [facility] [address] [place] [address] Marielle Gaming, RN TRAVELING 11/07/2024 3:00 PM RN IMMUNOLOGY Appointment [facility] [address] [place] [address] [place] [address] [place] [address] Tal Greenberg MD 4804 [facility] [address] [place] [address] 11/09/2024 1:45 PM RN IMMUNOLOGY Appointment [facility] [address] [place] [address] Tal Greenberg MD 4804 [facility] [address] [place] [address] Marielle Gaming, RN TRAVELING 11/11/2024 1:45 PM RN IMMUNOLOGY Appointment [facility] [address] [place] [address] Tal Greenberg MD 4804 [facility] [address] [place] [address] Marielle Gaming, RN TRAVELING 11/14/2024 1:45 PM RN IMMUNOLOGY Appointment [facility] [address] [place] [address] Tal Greenberg MD 4804 [facility] [address] [place] [address] Marielle Gaming, RN TRAVELING 11/16/2024 1:45 PM RN IMMUNOLOGY Appointment [facility] [address] [place] [address] Tal Greenberg MD 5854 [facility] [address] [place] [address] [place] [address] [place] [address] 11/18/2024 1:45 PM RN IMMUNOLOGY Appointment [facility] [address] [place] [address] [place] [address] [place] [address] Tal Greenberg MD 4805 [facility] [address] [place] [address] 11/21/2024 1:00 PM RN IMMUNOLOGY Appointment [facility] [address] [place] [address] [place] [address] [place] [address] Tal Greenberg MD 1774 [facility] [address] [place] [address] 11/23/2024 1:45 PM RN IMMUNOLOGY Appointment [facility] [address] [place] [address] Tal Greenberg MD 4804 [facility] [address] [place] [address] Marielle Gaming PTA 11/25/2024 1:45 PM RN IMMUNOLOGY Appointment [facility] [address] [place], [place] [address] Tal Greenberg MD 4804 [facility] [address] [place] [address] Marielle Gaming PTA documented as of this encounter Visit Diagnoses Not on filedocumented in this encounter Additional Health Concerns Infection Onset Date Last Indicated Resolved Time COVID-19 Rule Out 09/09/2022 09/09/2022 09/09/2022 9:17 AM RN IMMUNOLOGY documented as of this encounter Care Teams Diversity Intern Relationship Specialty [place] [address] [place] [address] PCP - General FAMILY PRACTICE 09/27/18 documented as of this encounter
--- OUTSIDE RECORDS SUMMARY | 2024-10-26 02:53 | XMS_ITS | Encounter Summary ---
Author Organization [facility] Address [address] [place] [address] Care Team Providers Care Rewards Consultant Name Role Phone Zach Rhodes MD Primary Care Provider [phone] Encounter Details Date Type Department Care Team (Late Contact Info) Description 09/10/2019 BioVigilant Systemst Message Enc [facility] Medical Group Family & Internal Medicine [facility] [address] [place] [address] [place] [address] [place] [address] RE: Question Social History Tobacco [...] (Late Contact Info) Description 10/31/2024 1:00 PM CALL CENTER SUPPORT REPRESENTATIVE Appointment [facility] [address] [place] [address] [place] [address] [place] [address] Tal Greenberg MD 4804 [facility] [address] [place] [address] 11/02/2024 1:45 PM CALL CENTER SUPPORT REPRESENTATIVE Appointment [facility] [address] [place] [address] Tal Greenberg MD 4804 [facility] [address] [place] [address] Marielle Gaming, SEAMING MACHINE OPERATOR 11/04/2024 1:45 PM CALL CENTER SUPPORT REPRESENTATIVE Appointment [facility] [address] [place] [address] Tal Greenberg MD [facility] [address] [place] [address] Marielle Gaming, SEAMING MACHINE OPERATOR 11/07/2024 3:00 PM CALL CENTER SUPPORT REPRESENTATIVE Appointment [facility] [address] [place] [address] [place] [address] [place] [address] Tal Greenberg MD 4804 [facility] [address] [place] [address] 11/09/2024 1:45 PM CALL CENTER SUPPORT REPRESENTATIVE Appointment [facility] [address] [place] [address] Tal Greenberg MD 4804 [facility] [address] [place] [address] Marielle Gaming, SEAMING MACHINE OPERATOR 11/11/2024 1:45 PM CALL CENTER SUPPORT REPRESENTATIVE Appointment [facility] [address] [place] [address] Tal Greenberg MD 4804 [facility] [address] [place] [address] Marielle Gaming, SEAMING MACHINE OPERATOR 11/14/2024 1:45 PM CALL CENTER SUPPORT REPRESENTATIVE Appointment [facility] [address] [place] [address] Tal Greenberg MD 4804 [facility] [address] [place] [address] Marielle Gaming, SEAMING MACHINE OPERATOR 11/16/2024 1:45 PM CALL CENTER SUPPORT REPRESENTATIVE Appointment [facility] [address] [place] [address] Tal Greenberg MD 5894 [facility] [address] [place] [address] [place] [address] [place] [address] 11/18/2024 1:45 PM CALL CENTER SUPPORT REPRESENTATIVE Appointment [facility] [address] [place] [address] [place] [address] [place] [address] Tal Greenberg MD 480 [facility] [address] [place] [address] 11/21/2024 1:00 PM CALL CENTER SUPPORT REPRESENTATIVE Appointment [facility] [address] [place] [address] [place] [address] [place] [address] Tal Greenberg MD 2654 [facility] [address] [place] [address] 11/23/2024 1:45 PM CALL CENTER SUPPORT REPRESENTATIVE Appointment [facility] [address] [place] [address] Tal Greenberg MD 4804 [facility] [address] [place] [address] Marielle Gaming PTA 11/25/2024 1:45 PM CALL CENTER SUPPORT REPRESENTATIVE Appointment [facility] [address] [place], [place] [address] Tal Greenberg MD 4804 [facility] [address] [place] [address] Marielle Gaming PTA documented as of this encounter Visit Diagnoses Not on filedocumented in this encounter Additional Health Concerns Infection Onset Date Last Indicated Resolved Time COVID-19 Rule Out 09/09/2022 09/09/2022 09/09/2022 9:17 AM CALL CENTER SUPPORT REPRESENTATIVE documented as of this encounter Care Teams Rewards Consultant Relationship Specialty [place] [address] [place] [address] PCP - General FAMILY PRACTICE 09/27/18 documented as of this encounter
--- OUTSIDE RECORDS SUMMARY | 2024-10-26 02:53 | XMS_ITS | Encounter Summary ---
Author Organization [facility] Address [address] [place] [address] Care Team Providers Care Drywall Application Supervisor Name Role Phone Zach Rhodes MD Primary Care Provider [phone] Encounter Details Date Type Department Care Team (Late st Contact Info) Description 10/07/2019 MyChart Message Enc [facility] Medical Group Family & Internal Medicine [facility] [address] [place] [address] [place] [address] [place] [address] RE: Other Social History Tobacco [...] st Contact Info) Description 10/31/2024 1:00 PM YARN CONDITIONER Appointment [facility] [address] [place] [address] [place] [address] [place] [address] Tal Greenberg MD 4804 [facility] [address] [place] [address] 11/02/2024 1:45 PM YARN CONDITIONER Appointment [facility] [address] [place] [address] Tal Greenberg MD 4804 [facility] [address] [place] [address] Marielle Gaming, TRANSFER MAN 11/04/2024 1:45 PM YARN CONDITIONER Appointment [facility] [address] [place] [address] Tal Greenberg MD [facility] [address] [place] [address] Marielle Gaming, TRANSFER MAN 11/07/2024 3:00 PM YARN CONDITIONER Appointment [facility] [address] [place] [address] [place] [address] [place] [address] Tal Greenberg MD 4804 [facility] [address] [place] [address] 11/09/2024 1:45 PM YARN CONDITIONER Appointment [facility] [address] [place] [address] Tal Greenberg MD 4804 [facility] [address] [place] [address] Marielle Gaming, TRANSFER MAN 11/11/2024 1:45 PM YARN CONDITIONER Appointment [facility] [address] [place] [address] Tal Greenberg MD 4804 [facility] [address] [place] [address] Marielle Gaming, TRANSFER MAN 11/14/2024 1:45 PM YARN CONDITIONER Appointment [facility] [address] [place] [address] Tal Greenberg MD 4804 [facility] [address] [place] [address] Marielle Gaming, TRANSFER MAN 11/16/2024 1:45 PM YARN CONDITIONER Appointment [facility] [address] [place] [address] Tal Greenberg MD 3504 [facility] [address] [place] [address] [place] [address] [place] [address] 11/18/2024 1:45 PM YARN CONDITIONER Appointment [facility] [address] [place] [address] [place] [address] [place] [address] Tal Greenberg MD 4805 [facility] [address] [place] [address] 11/21/2024 1:00 PM YARN CONDITIONER Appointment [facility] [address] [place] [address] [place] [address] [place] [address] Tal Greenberg MD 4524 [facility] [address] [place] [address] 11/23/2024 1:45 PM YARN CONDITIONER Appointment [facility] [address] [place] [address] Tal Greenberg MD 4804 [facility] [address] [place] [address] Marielle Gaming PTA 11/25/2024 1:45 PM YARN CONDITIONER Appointment [facility] [address] [place], [place] [address] Tal Greenberg MD 4804 [facility] [address] [place] [address] Marielle Gaming PTA documented as of this encounter Visit Diagnoses Not on filedocumented in this encounter Additional Health Concerns Infection Onset Date Last Indicated Resolved Time COVID-19 Rule Out 09/09/2022 09/09/2022 09/09/2022 9:17 AM YARN CONDITIONER documented as of this encounter Care Teams Drywall Application Supervisor Relationship Specialty [place] [address] [place] [address] PCP - General FAMILY PRACTICE 09/27/18 documented as of this encounter
--- OUTSIDE RECORDS SUMMARY | 2024-10-26 02:53 | XMS_ITS | Encounter Summary ---
Author Organization [facility] Address [address] [place] [address] Care Team Providers Care Car Ferrier Name Role Phone Zach Rhodes MD Primary Care Provider [phone] Encounter Details Date Type Department Care Team (Late Contact Info) Description 08/23/2019 UpMot Message Enc [facility] Medical Group Family & Internal Medicine [facility] [address] [place] [address] [place] [address] [place] [address] RE: Medication Questions Social History [...] (Late Contact Info) Description 10/31/2024 1:00 PM LAY OUT MAKER Appointment [facility]hab [address] [place] [address] [place] [address] [place] [address] Tal Greenberg MD 4804 [facility] [address] [place] [address] 11/02/2024 1:45 PM LAY OUT MAKER Appointment [facility] [address] [place] [address] Tal Greenberg MD 4804 [facility] [address] [place] [address] Marielle Gaming, DISASSEMBLER PRODUCT 11/04/2024 1:45 PM LAY OUT MAKER Appointment [facility] [address] [place] [address] Tal Greenberg MD [facility]4 [facility] [address] [place] [address] Marielle Gaming, DISASSEMBLER PRODUCT 11/07/2024 3:00 PM LAY OUT MAKER Appointment [facility] [address] [place] [address] [place] [address] [place] [address] Tal Greenberg MD [facility]4 [facility] [address] [place] [address] 11/09/2024 1:45 PM LAY OUT MAKER Appointment [facility] [address] [place] [address] Tal Greenberg MD 4804 [facility] [address] [place] [address] Marielle Gaming, DISASSEMBLER PRODUCT 11/11/2024 1:45 PM LAY OUT MAKER Appointment [facility] [address] [place] [address] Tal Greenberg MD 4804 [facility] [address] [place] [address] Marielle Gaming, DISASSEMBLER PRODUCT 11/14/2024 1:45 PM LAY OUT MAKER Appointment [facility] [address] [place] [address] Tal Greenberg MD 4804 [facility] [address] [place] [address] Marielle Gaming, DISASSEMBLER PRODUCT 11/16/2024 1:45 PM LAY OUT MAKER Appointment [facility] [address] [place] [address] Tal Greenberg MD 4804 [facility] [address] [place] [address] [place] [address] [place] [address] 11/18/2024 1:45 PM LAY OUT MAKER Appointment [facility] [address] [place] [address] [place] [address] [place] [address] Tal Greenberg MD 4804 [facility] [address] [place] [address] 11/21/2024 1:00 PM LAY OUT MAKER Appointment [facility] [address] [place] [address] [place] [address] [place] [address] Tal Greenberg MD 4804 [facility] [address] [place] [address] 11/23/2024 1:45 PM LAY OUT MAKER Appointment [facility]hab [address] [place] [address] Tal Greenberg MD 4804 [facility] [address] [place] [address] Marielle Gaming PTA 11/25/2024 1:45 PM LAY OUT MAKER Appointment [facility]hab [address] [place], [place] [address] Tal Greenberg MD 4804 [facility] [address] [place] [address] Marielle Gaming PTA documented as of this encounter Visit Diagnoses Not on filedocumented in this encounter Additional Health Concerns Infection Onset Date Last Indicated Resolved Time COVID-19 Rule Out 09/09/2022 09/09/2022 09/09/2022 9:17 AM LAY OUT MAKER documented as of this encounter Care Teams Car Ferrier Relationship Specialty [place] [address] [place] [address] PCP - General FAMILY PRACTICE 09/27/18 documented as of this encounter
--- OUTSIDE RECORDS SUMMARY | 2024-10-26 02:53 | XMS_ITS | Encounter Summary ---
Author Organization [facility] Address [address] [place] [address] Care Team Providers Care Senior Bi Architect Name Role Phone Zach Rhodes MD Primary Care Provider [phone] Encounter Details Date Type Department Care Team (Late Contact Info) Description 06/20/2019 [email or web address] Message Enc [facility] Medical Group Family & Internal Medicine [facility] [address] [place] [address] [place] [address] [place] [address] RE: Other Social History Tobacco [...] (Late Contact Info) Description 10/31/2024 1:00 PM ASSISTANT IN NURSING Appointment [facility] [address] [place] [address] [place] [address] [place] [address] Tal Greenberg MD 4804 [facility] [address] [place] [address] 11/02/2024 1:45 PM ASSISTANT IN NURSING Appointment [facility] [address] [place] [address] Tal Greenberg MD 4804 [facility] [address] [place] [address] Marielle Gaming, MANAGER FRENCH 11/04/2024 1:45 PM ASSISTANT IN NURSING Appointment [facility] [address] [place] [address] Tal Greenberg MD [facility] [address] [place] [address] Marielle Gaming, MANAGER FRENCH 11/07/2024 3:00 PM ASSISTANT IN NURSING Appointment [facility] [address] [place] [address] [place] [address] [place] [address] Tal Greenberg MD 4804 [facility] [address] [place] [address] 11/09/2024 1:45 PM ASSISTANT IN NURSING Appointment [facility] [address] [place] [address] Tal Greenberg MD 4804 [facility] [address] [place] [address] Marielle Gaming, MANAGER FRENCH 11/11/2024 1:45 PM ASSISTANT IN NURSING Appointment [facility] [address] [place] [address] Tal Greenberg MD 4804 [facility] [address] [place] [address] Marielle Gaming, MANAGER FRENCH 11/14/2024 1:45 PM ASSISTANT IN NURSING Appointment [facility] [address] [place] [address] Tal Greenberg MD 4804 [facility] [address] [place] [address] Marielle Gaming, MANAGER FRENCH 11/16/2024 1:45 PM ASSISTANT IN NURSING Appointment [facility] [address] [place] [address] Tal Greenberg MD 5404 [facility] [address] [place] [address] [place] [address] [place] [address] 11/18/2024 1:45 PM ASSISTANT IN NURSING Appointment [facility] [address] [place] [address] [place] [address] [place] [address] Tal Greenberg MD 4808 [facility] [address] [place] [address] 11/21/2024 1:00 PM ASSISTANT IN NURSING Appointment [facility] [address] [place] [address] [place] [address] [place] [address] Tal Greenberg MD 2454 [facility] [address] [place] [address] 11/23/2024 1:45 PM ASSISTANT IN NURSING Appointment [facility] [address] [place] [address] Tal Greenberg MD 4804 [facility] [address] [place] [address] Marielle Gaming PTA 11/25/2024 1:45 PM ASSISTANT IN NURSING Appointment [facility] [address] [place], [place] [address] Tal Greenberg MD 4804 [facility] [address] [place] [address] Marielle Gaming PTA documented as of this encounter Visit Diagnoses Not on filedocumented in this encounter Additional Health Concerns Infection Onset Date Last Indicated Resolved Time COVID-19 Rule Out 09/09/2022 09/09/2022 09/09/2022 9:17 AM ASSISTANT IN NURSING documented as of this encounter Care Teams Senior Bi Architect Relationship Specialty [place] [address] [place] [address] PCP - General FAMILY PRACTICE 09/27/18 documented as of this encounter
--- OUTSIDE RECORDS SUMMARY | 2024-10-26 02:53 | XMS_ITS | Encounter Summary ---
Author Organization [facility] Address [facility] [place] [address] Care Team Providers Care Mobile Developer Name Role Phone Zach Rhodes MD Primary Care Provider [phone] Encounter Details Date Type Department Care Team (Late st Contact Info) Description 05/26/2024 [email or web address] Message Enc [facility] Medical Group Family & Internal Medicine [facility] [address] [place] [address] Birgit Elizondo FNP-BC [id number] [place] [address] [address] [place] [address] Reless Social History Tobacco Use Types Packs/Day Years Used Date Smoking Tobacco: Never Smokeless Tobacco: Never Comments:no hx tobacco Alcohol Use Standard Drinks/Week Comments Not Currently 0 (1 standard drink = 0.6 oz pur e alcohol) RARE PHQ-2 Answer Date Recorded Patient Health Questionnaire-2 Score 0 04/18/2024 Education Answer Date Recorded What is the [...] on file documented as of this encounter Progress Notes * TARAH Vázquez - 05/26/2024 10:09 AM CDT Please send patient work release letter stating she is clear to push/pull & lift up to 50 lbs without restrictions. * Arina Carroll RN - 05/26/2024 9:48 AM CDT Please advise documented in this encounter Plan of Treatment Upcoming Encounters Date Type Department Care Team (Late st Contact Info) Description 10/31/2024 1:00 PM SELLING SPECIALIST Appointment [facility] [address] [place] [address] [place] [address] [place], [place] [address] Tal Greenberg MD [facility] [address] [place] [address] 11/02/2024 1:45 PM SELLING SPECIALIST Appointment [facility] [address] [place] [address] Tal Greenberg MD 4804 [facility] [address] [place] [address] Marielle Gaming, CABRERA 11/04/2024 1:45 PM SELLING SPECIALIST Appointment [facility] [address] [place] [address] Tal Greenberg MD [facility] [address] [place] [address] Mraielle Gaming, CABRERA 11/07/2024 3:00 PM SELLING SPECIALIST Appointment [facility] [address] [place] [address] [place] [address] [place] [address] Tal Greenberg MD 4804 [facility] [address] [place] [address] 11/09/2024 1:45 PM SELLING SPECIALIST Appointment [facility] [address] [place] [address] Tal Greenberg MD 4804 [facility] [address] [place] [address] Marielle Gaming, BUSINESS ANALYTICS SPECIALIST 11/11/2024 1:45 PM SELLING SPECIALIST Appointment [facility] [address] [place] [address] Tal Greenberg MD 4804 [facility] [address] [place] [address] Marielle Gaming, BUSINESS ANALYTICS SPECIALIST 11/14/2024 1:45 PM SELLING SPECIALIST Appointment [facility] [address] [place] [address] Tal Greenberg MD [facility] [address] [place] [address] Marielle Gaming, BUSINESS ANALYTICS SPECIALIST 11/16/2024 1:45 PM SELLING SPECIALIST Appointment [facility] [address] [place] [address] Tal Greenberg MD 4804 [facility] [address] [place] [address] [place] [address] [place] [address] 11/18/2024 1:45 PM SELLING SPECIALIST Appointment [facility] [address] [place] [address] [place] [address] [place] [address] Tal Greenberg MD [address] [place] [address] [address] [place] [address] 11/21/2024 1:00 PM SELLING SPECIALIST Appointment [facility] [address] [place] [address] [place] [address] [place] [address] Tal Greenberg MD [address] [place] [address] [address] [place] [address] 11/23/2024 1:45 PM SELLING SPECIALIST Appointment [facility] [address] [place] [address] Tal Greenberg MD [address] [place] [address] [address] [place] [address] Marielle Gaming PTA 11/25/2024 1:45 PM SELLING SPECIALIST Appointment [facility] [address] [place] [address] Tal Greenberg MD [address] [place] [address] [address] [place] [address] Marielle Gaming, BUSINESS ANALYTICS SPECIALIST documented as of this encounter Visit Diagnoses Not on filedocumented in this encounter Additional Health Concerns Assessment Noted Time PHQ-9 Depression Total Score: 2 04/18/20 24 12:58 PM CDT documented as of this encounter Care Teams Mobile Developer Relationship Specialty [place] [address] [place] [address] PCP - General FAMILY PRACTICE 09/27/18 documented as of this encounter
--- OUTSIDE RECORDS SUMMARY | 2024-10-26 02:53 | XMS_ITS | Encounter Summary ---
Author Organization [facility] Address [address] [place] [address] Care Team Providers Care Corn Miller Name Role Phone Zach Rhodes MD Primary Care Provider [phone] Encounter Details Date Type Department Care Team (Late Contact Info) Description 03/28/2024 Tryoutshart Message Enc [facility] Medical Group Family & Internal Medicine [facility] [address] [place] [address] [place] [address] [place] [address] Note Social History Tobacco Use Types Packs/Day Years [...] (Late Contact Info) Description 10/31/2024 1:00 PM RETIREMENT PLAN SPECIALIST Appointment [facility] [address] [place] [address] [place] [address] [place] [address] Tal Greenberg MD 4804 [facility] [address] [place] [address] 11/02/2024 1:45 PM RETIREMENT PLAN SPECIALIST Appointment [facility] [address] [place] [address] Tal Greenberg MD 4804 [facility] [address] [place] [address] Marielle Gaming, SPRING FITTER HELPER 11/04/2024 1:45 PM RETIREMENT PLAN SPECIALIST Appointment [facility] [address] [place] [address] Tal Greenberg MD [facility] [address] [place] [address] Marielle Gaming, SPRING FITTER HELPER 11/07/2024 3:00 PM RETIREMENT PLAN SPECIALIST Appointment [facility] [address] [place] [address] [place] [address] [place] [address] Tal Greenberg MD 4804 [facility] [address] [place] [address] 11/09/2024 1:45 PM RETIREMENT PLAN SPECIALIST Appointment [facility] [address] [place] [address] Tal Greenberg MD 4804 [facility] [address] [place] [address] Marielle Gaming, SPRING FITTER HELPER 11/11/2024 1:45 PM RETIREMENT PLAN SPECIALIST Appointment [facility] [address] [place] [address] Tal Greenberg MD 4804 [facility] [address] [place] [address] Marielle Gaming, SPRING FITTER HELPER 11/14/2024 1:45 PM RETIREMENT PLAN SPECIALIST Appointment [facility] [address] [place] [address] Tal Greenberg MD 4804 [facility] [address] [place] [address] Marielle Gaming, SPRING FITTER HELPER 11/16/2024 1:45 PM RETIREMENT PLAN SPECIALIST Appointment [facility] [address] [place] [address] Tal Greenberg MD 4804 [facility] [address] [place] [address] [place] [address] [place] [address] 11/18/2024 1:45 PM RETIREMENT PLAN SPECIALIST Appointment [facility] [address] [place] [address] [place] [address] [place] [address] Tal Greenberg MD 4804 [facility] [address] [place] [address] 11/21/2024 1:00 PM RETIREMENT PLAN SPECIALIST Appointment [facility] [address] [place] [address] [place] [address] [place] [address] Tal Greenberg MD 4804 [facility] [address] [place] [address] 11/23/2024 1:45 PM RETIREMENT PLAN SPECIALIST Appointment [facility] [address] [place] [address] Tal Greenberg MD 4804 [facility] [address] [place] [address] Marielle Gaming PTA 11/25/2024 1:45 PM RETIREMENT PLAN SPECIALIST Appointment [facility] [address] [place] [address] Tal Greenberg MD 4804 [facility] [address] [place] [address] Marielle Gaming PTA documented as of this encounter Visit Diagnoses Not on filedocumented in this encounter Additional Health Concerns Assessment Noted Time PHQ-9 Depression Total Score: 6 06/11/20 23 9:22 AM CDT documented as of this encounter Care Teams Corn Miller Relationship Specialty [place] [address] [place] [address] PCP - General FAMILY PRACTICE 09/27/18 documented as of this encounter
--- OUTSIDE RECORDS SUMMARY | 2024-10-26 02:53 | XMS_ITS | Encounter Summary ---
Author Organization [facility] Address [address] [place] [address] Care Team Providers Care Laser Set Up Operator Name Role Phone Zach Rhodes MD Primary Care Provider [phone] Encounter Details Date Type Department Care Team ([facility] Contact Info) Description 09/28/2018 MyChart Message Enc [facility] Medical Group Family & Internal Medicine [facility] [address] [place] [address] [place] [address] [place], [place] [id number] RE: Test Results Social History Tobacco Use Types Packs/Day Years Used Date Smoking Tobacco: Never Smokeless Tobacco: Never Alcohol Use Standard Drinks/Week Comments Yes 0 (1 standard drink = 0.6 oz pur e alcohol) RARE Comments Unknown Sex and Gender Information Value Date Recorded Sex Assigned at Not on file Legal Sex Female 8:31 PM CDT Gender Identity Not on file Sexual Orientation Not on file documented as of this encounter Plan of Treatment Upcoming Encounters Date Type Department Care Team (Late Contact Info) Description 10/31/2024 1:00 PM SLUBBER FRAME CHANGER Appointment [facility] [address] [place] [address] [place] [address] [place], [place] [address] Tal Greenberg MD [address] [place] [address] 11/02/2024 1:45 PM SLUBBER FRAME CHANGER Appointment [facility] [address] [place] [address] Tal Greenberg MD 4804 [facility] [address] [place] [address] Marielle Gaming, OFFICE SERVICES REPRESENTATIVE 11/04/2024 1:45 PM SLUBBER FRAME CHANGER Appointment [facility] [address] [place] [address] Tal Greenberg MD 4804 [facility] [address] [place] [address] Marielle Gaming, OFFICE SERVICES REPRESENTATIVE 11/07/2024 3:00 PM SLUBBER FRAME CHANGER Appointment [facility] [address] [place] [address] [place] [address] [place] [address] Tal Greenberg MD 4804 [facility] [address] [place] [address] 11/09/2024 1:45 PM SLUBBER FRAME CHANGER Appointment [facility] [address] [place] [address] Tal Greenberg MD 4804 [facility] [address] [place] [address] Marielle Gaming, OFFICE SERVICES REPRESENTATIVE 11/11/2024 1:45 PM SLUBBER FRAME CHANGER Appointment [facility] [address] [place] [address] Tal Greenberg MD 4804 [facility] [address] [place] [address] Marielle Gaming PTA 11/14/2024 1:45 PM SLUBBER FRAME CHANGER Appointment [facility] [address] [place] [address] Tal Greenberg MD [facility] [address] [place] [address] Marielle Gaming, OFFICE SERVICES REPRESENTATIVE 11/16/2024 1:45 PM SLUBBER FRAME CHANGER Appointment [facility] [address] [place] [address] Tal Greenberg MD [facility]4 [facility] [address] [place] [address] [place] [address] [place] [address] 11/18/2024 1:45 PM SLUBBER FRAME CHANGER Appointment [facility] [address] [place] [address] [place] [address] [place] [address] Tal Greenberg MD [facility] [address] [place] [address] 11/21/2024 1:00 PM SLUBBER FRAME CHANGER Appointment [facility] [address] [place] [address] [place] [address] [place] [address] Tal Greenberg MD [facility] [address] [place] [address] 11/23/2024 1:45 PM SLUBBER FRAME CHANGER Appointment [facility] [address] [place] [address] Tal Greenberg MD 4804 [facility] [address] [place] [address] Marielle Gaming PTA 11/25/2024 1:45 PM SLUBBER FRAME CHANGER Appointment [facility] [address] [place] [address] Tal Greenberg MD 4804 [facility] [address] [place] [address] Marielle Gaming PTA documented as of this encounter Visit Diagnoses Not on filedocumented in this encounter Additional Health Concerns Infection Onset Date Last Indicated Resolved Time COVID-19 Rule Out 09/09/2022 09/09/2022 09/09/2022 9:17 AM SLUBBER FRAME CHANGER documented as of this encounter Care Teams Laser Set Up Operator Relationship Specialty [place] [address] [place] [address] PCP - General FAMILY PRACTICE 09/27/18 documented as of this encounter
--- OUTSIDE RECORDS SUMMARY | 2024-10-26 02:53 | XMS_ITS | Encounter Summary ---
Author Organization [facility] Address [address] [place] [address] Care Team Providers Care Power Distribution Engineer Name Role Phone Zach Rhodes MD Primary Care Provider [phone] Encounter Details Date Type Department Care Team (Late Contact Info) Description 09/09/2019 Smart Pipet Message Enc [facility] Medical Group Family & Internal Medicine [facility] [address] [place] [address] [place] [address] [place] [address] Other Social History Tobacco Use [...] (Late Contact Info) Description 10/31/2024 1:00 PM CIVIL ENGINEER LAND DEVELOPMENT Appointment [facility] [address] [place] [address] [place] [address] [place] [address] Tal Greenberg MD 4804 [facility] [address] [place] [address] 11/02/2024 1:45 PM CIVIL ENGINEER LAND DEVELOPMENT Appointment [facility] [address] [place] [address] Tal Greenberg MD 4804 [facility] [address] [place] [address] Marielle Gaming, DATABASE CONSULTANT 11/04/2024 1:45 PM CIVIL ENGINEER LAND DEVELOPMENT Appointment [facility] [address] [place] [address] Tal Greenberg MD 4804 [facility] [address] [place] [address] Marielle Gaming, DATABASE CONSULTANT 11/07/2024 3:00 PM CIVIL ENGINEER LAND DEVELOPMENT Appointment [facility] [address] [place] [address] [place] [address] [place] [address] Tal Greenberg MD 4804 [facility] [address] [place] [address] 11/09/2024 1:45 PM CIVIL ENGINEER LAND DEVELOPMENT Appointment [facility] [address] [place] [address] Tal Greenberg MD 4804 [facility] [address] [place] [address] Marielle Gaming, DATABASE CONSULTANT 11/11/2024 1:45 PM CIVIL ENGINEER LAND DEVELOPMENT Appointment [facility] [address] [place] [address] Tal Greenberg MD 4804 [facility] [address] [place] [address] Marielle Gaming, DATABASE CONSULTANT 11/14/2024 1:45 PM CIVIL ENGINEER LAND DEVELOPMENT Appointment [facility] [address] [place] [address] Tal Greenberg MD 4804 [facility] [address] [place] [address] Marielle Gaming, DATABASE CONSULTANT 11/16/2024 1:45 PM CIVIL ENGINEER LAND DEVELOPMENT Appointment [facility] [address] [place] [address] Tal Greenberg MD [facility] [address] [place] [address] [place] [address] [place] [address] 11/18/2024 1:45 PM CIVIL ENGINEER LAND DEVELOPMENT Appointment [facility] [address] [place] [address] [place] [address] [place] [address] Tal Greenberg MD 4804 [facility] [address] [place] [address] 11/21/2024 1:00 PM CIVIL ENGINEER LAND DEVELOPMENT Appointment [facility] [address] [place] [address] [place] [address] [place] [address] Tal Greenberg MD [facility] [address] [place] [address] 11/23/2024 1:45 PM CIVIL ENGINEER LAND DEVELOPMENT Appointment [facility] [address] [place] [address] Tal Greenberg MD 4804 [facility] [address] [place] [address] Marielle Gaming PTA 11/25/2024 1:45 PM CIVIL ENGINEER LAND DEVELOPMENT Appointment [facility] [address] [place], [place] [address] Tal Greenberg MD 4804 [facility] [address] [place] [address] Marielle Gaming PTA documented as of this encounter Visit Diagnoses Not on filedocumented in this encounter Additional Health Concerns Infection Onset Date Last Indicated Resolved Time COVID-19 Rule Out 09/09/2022 09/09/2022 09/09/2022 9:17 AM CIVIL ENGINEER LAND DEVELOPMENT documented as of this encounter Care Teams Power Distribution Engineer Relationship Specialty [place] [address] [place] [address] PCP - General FAMILY PRACTICE 09/27/18 documented as of this encounter
--- OUTSIDE RECORDS SUMMARY | 2024-10-26 02:54 | XMS_ITS | Encounter Summary ---
Author Organization [facility] Address [address] [place] [address] Care Team Providers Care Aggregate Conveyor Operator Name Role Phone Zach Rhodes MD Primary Care Provider [phone] Encounter Details Date Type Department Care Team (Late Contact Info) Description 07/24/2021 Axonify Message Enc [facility] Medical Group Family & Internal Medicine [address] [address] [email or web address] Provider today's appointment Social History Tobacco Use Types Packs/Day Years Used Date Smoking Tobacco: Never Smokeless Tobacco: Never Alcohol Use Standard Drinks/Week Comments Yes 0 (1 standard drink = 0.6 oz pur e alcohol) RARE PHQ-2 Answer Date Recorded PHQ-2 Score - If the patient scores above 3, please move on to questions 3-9 1 05/31/2021 Education Answer Date Recorded What is the [...] file Not on file Not on file COVID-19 Exposure Response Date Recorded In the last month, have you been in contact with someone who was confirmed or suspected to have Coronavirus / COVID-19? No / Unsure 07/25/2021 5:03 AM CDT documented as of this encounter Plan of Treatment Upcoming Encounters Date Type Department Care Team (Late Contact Info) Description 10/31/2024 1:00 PM EVENT MANAGER Appointment [facility] [address] [place] [address] [place] [address] [place] [address] Tal Greenberg MD 4804 [facility] [address] [place] [address] 11/02/2024 1:45 PM EVENT MANAGER Appointment [facility] [address] [place] [address] Tal Greenberg MD 4804 [facility] [address] [place] [address] Marielle Gaming, DERRICK CAR OPERATOR 11/04/2024 1:45 PM EVENT MANAGER Appointment [facility] [address] [place] [address] Tal Greenberg MD 480[address] [facility] [address] [place] [address] Marielle Gaming, DERRICK CAR OPERATOR 11/07/2024 3:00 PM EVENT MANAGER Appointment [facility] [address] [place] [address] [place] [address] [place] [address] Tal Greenberg MD 480[address] [facility] [address] [place] [address] 11/09/2024 1:45 PM EVENT MANAGER Appointment [facility] [address] [place] [address] Tal Greenberg MD 480[address] [facility] [address] [place] [address] Marielle Gaming, DERRICK CAR OPERATOR 11/11/2024 1:45 PM EVENT MANAGER Appointment [facility] [address] [place] [address] Tal Greenberg MD 4804 [facility] [address] [place] [address] Marielle Gaming, DERRICK CAR OPERATOR 11/14/2024 1:45 PM EVENT MANAGER Appointment [facility] [address] [place] [address] Tal Greenberg MD [facility] [address] [place] [address] Marielle Gaming, DERRICK CAR OPERATOR 11/16/2024 1:45 PM EVENT MANAGER Appointment [facility] [address] [place] [address] Tal Greenberg MD [facility] [address] [place] [address] [place] [address] [place], [place] [address] 11/18/2024 1:45 PM EVENT MANAGER Appointment [facility] [address] [place] [address] [place] [address] [place] [address] Tal Greenberg MD [facility] [address] [place] [address] 11/21/2024 1:00 PM EVENT MANAGER Appointment [facility] [address] [place] [address] [place] [address] [place] [address] Tal Greenberg MD 480[address] [facility] [address] [place] [address] 11/23/2024 1:45 PM EVENT MANAGER Appointment [facility] [address] [place] [address] Tal Greenberg MD 480[address] [facility] [address] [place] [address] Marielle Gaming PTA 11/25/2024 1:45 PM EVENT MANAGER Appointment [facility] [address] [place] [address] Tal Greenberg MD [address] [facility] [address] [place] [address] Marielle Gaming PTA documented as of this encounter Visit Diagnoses Not on filedocumented in this encounter Additional Health Concerns Infection Onset Date Last Indicated Resolved Time COVID-19 Rule Out 09/09/2022 09/09/2022 09/09/2022 9:17 AM EVENT MANAGER Assessment Noted Time PHQ-9 Depression Total Score: 7 05/31/20 21 9:09 AM CDT documented as of this encounter Care Teams Aggregate Conveyor Operator Relationship Specialty [place] [address] [place] [address] PCP - General FAMILY PRACTICE 09/27/18 documented as of this encounter
--- OUTSIDE RECORDS SUMMARY | 2024-10-26 02:54 | XMS_ITS | Encounter Summary ---
Author Organization [facility] Address [address] [place] [address] Care Team Providers Care Cook Chili Name Role Phone Zach Rhodes MD Primary Care Provider [phone] Encounter Details Date Type Department Care Team (Late Contact Info) Description 06/02/2023 HealthcareSourcet Message Enc [facility] Medical Group Family & Internal Medicine [facility] [address] [place] [address] [place] [address] [place], [place] [id number] Note Social History Tobacco Use Types Packs/Day Years Used Date Smoking Tobacco: Never Smokeless Tobacco: Never Comments:no hx tobacco Alcohol Use Standard Drinks/Week Comments Yes 0 (1 standard drink = 0.6 oz pur e alcohol) RARE PHQ-2 Answer Date Recorded PHQ-2 Score - If the patient scores above 3, please move on to questions 3-9 5 06/09/2022 Education Answer Date Recorded What is the [...] Contact Info) Description 10/31/2024 1:00 PM HEAD OF ART Appointment [facility] [address] [place] [address] [place] [address] [place] [address] Tal Greenberg MD 4804 [facility] [address] [place] [address] 11/02/2024 1:45 PM HEAD OF ART Appointment [facility] [address] [place] [address] Tal Greenberg MD 4804 [facility] [address] [place] [address] Marielle Gaming, BISQUE KILN PLACER 11/04/2024 1:45 PM HEAD OF ART Appointment [facility] [address] [place] [address] Tal Greenberg MD 480[address] [facility] [address] [place] [address] Marielle Gaming, BISQUE KILN PLACER 11/07/2024 3:00 PM HEAD OF ART Appointment [facility] [address] [place] [address] [place] [address] [place] [address] Tal Greenberg MD 4804 [facility] [address] [place] [address] 11/09/2024 1:45 PM HEAD OF ART Appointment [facility] [address] [place] [address] Tal Greenberg MD 480[address] [facility] [address] [place] [address] Marielle Gaming, BISQUE KILN PLACER 11/11/2024 1:45 PM HEAD OF ART Appointment [facility] [address] [place] [address] Tal Greenberg MD 480[address] [facility] [address] [place] [address] Marielle Gaming, BISQUE KILN PLACER 11/14/2024 1:45 PM HEAD OF ART Appointment [facility] [address] [place] [address] Tal Greenberg MD 480[address] [facility] [address] [place] [address] Marielle Gaming, BISQUE KILN PLACER 11/16/2024 1:45 PM HEAD OF ART Appointment [facility] [address] [place] [address] Tal Greenberg MD [facility] [address] [place] [address] [place] [address] [place], [place] [id number] 11/18/2024 1:45 PM HEAD OF ART Appointment [facility] [address] [place] [address] [place] [address] [place] [address] Tal Greenberg MD 480[address] [facility] [address] [place] [address] 11/21/2024 1:00 PM HEAD OF ART Appointment [facility] [address] [place] [address] [place] [address] [place] [address] Tal Greenberg MD 4804 [facility] [address] [place] [address] 11/23/2024 1:45 PM HEAD OF ART Appointment [facility]hab [address] [place] [address] Tal Greenberg MD 4804 [facility] [address] [place] [address] Marielle Gaming PTA 11/25/2024 1:45 PM HEAD OF ART Appointment [facility]hab [address] [place] [address] Tal Greenberg MD 4804 [facility] [address] [place] [address] Marielle Gaming PTA documented as of this encounter Visit Diagnoses Not on filedocumented in this encounter Additional Health Concerns Assessment Noted Time PHQ-9 Depression Total Score: 10 022 9:01 AM CDT documented as of this encounter Care Teams Cook Chili Relationship Specialty [place] [address] [place] [address] PCP - General FAMILY PRACTICE 09/27/18 documented as of this encounter
--- OUTSIDE RECORDS SUMMARY | 2024-10-26 02:54 | XMS_ITS | Encounter Summary ---
Author Organization [facility] Address [address] [place] [address] Care Team Providers Care Hot Water Heater Installer Name Role Phone Zach Rhodes MD Primary Care Provider [phone] Encounter Details Date Type Department Care Team (Late st Contact Info) Description 10/28/2022 Multichannelt Message Enc [facility] Medical Group Family & Internal Medicine [facility] [address] [place] [address] [place] [id number] [place] [address] Vitamin Social History Tobacco Use Types Packs/Day Years [...] Exposure Response Date Recorded In the last 10 days, have yo u been in contact with someone who was confirmed or suspected to have Coronavirus/COVID-19? No / Unsure 10/31/2022 10:44 AM QUARRY PLUG AND FEATHER DRILLER documented as of this encounter Plan of Treatment Upcoming Encounters Date Type Department Care Team (Late st Contact Info) Description 10/31/2024 1:00 PM QUARRY PLUG AND FEATHER DRILLER Appointment [facility] [address] [place] [address] [place] [address] [place] [address] Tal Greenberg MD [facility] [address] [place] [address] 11/02/2024 1:45 PM QUARRY PLUG AND FEATHER DRILLER Appointment [facility] [address] [place] [address] Tal Greenberg MD [facility]4 [facility] [address] [place] [address] Marielle Gaming, MEDTRONICS TECHNICIAN 11/04/2024 1:45 PM QUARRY PLUG AND FEATHER DRILLER Appointment [facility] [address] [place] [address] Tal Greenberg MD [facility] [address] [place] [address] Marielle Gaming, MEDTRONICS TECHNICIAN 11/07/2024 3:00 PM QUARRY PLUG AND FEATHER DRILLER Appointment [facility] [address] [place] [address] [place] [address] [place] [address] Tal Greenberg MD [facility] [address] [place] [address] 11/09/2024 1:45 PM QUARRY PLUG AND FEATHER DRILLER Appointment [facility] [address] [place] [address] Tal Greenberg MD 4804 [facility] [address] [place] [address] Marielle Gaming, MEDTRONICS TECHNICIAN 11/11/2024 1:45 PM QUARRY PLUG AND FEATHER DRILLER Appointment [facility] [address] [place] [address] Tal Greenberg MD 4804 [facility] [address] [place] [address] Marielle Gaming, MEDTRONICS TECHNICIAN 11/14/2024 1:45 PM QUARRY PLUG AND FEATHER DRILLER Appointment [facility] [address] [place] [address] Tal Greenberg MD 4804 [facility] [address] [place] [address] Marielle Gaming, MEDTRONICS TECHNICIAN 11/16/2024 1:45 PM QUARRY PLUG AND FEATHER DRILLER Appointment [facility] [address] [place] [address] Tal Greenberg MD 4804 [facility] [address] [place] [address] [place] [address] [place] [address] 11/18/2024 1:45 PM QUARRY PLUG AND FEATHER DRILLER Appointment [facility] [address] [place] [address] [place] [address] [place] [address] Tal Greenberg MD 4804 [facility] [address] [place] [address] 11/21/2024 1:00 PM QUARRY PLUG AND FEATHER DRILLER Appointment [facility] [address] [place] [address] [place] [address] [place] [address] Tal Greenberg MD 4804 [facility] [address] [place] [address] 11/23/2024 1:45 PM QUARRY PLUG AND FEATHER DRILLER Appointment [facility] [address] [place] [address] Tal Greenberg MD 4804 [facility] [address] [place] [address] Marielle Gaming PTA 11/25/2024 1:45 PM QUARRY PLUG AND FEATHER DRILLER Appointment [facility] [address] [place] [address] Tal Greenberg MD 4804 [facility] [address] [place] [address] Marielle Gaming PTA documented as of this encounter Visit Diagnoses Not on filedocumented in this encounter Additional Health Concerns Assessment Noted Time PHQ-9 Depression Total Score: 10 06/09/ 022 9:01 AM CDT documented as of this encounter Care Teams Hot Water Heater Installer Relationship Specialty [place] [address] [place] [address] PCP - General FAMILY PRACTICE 09/27/18 documented as of this encounter
--- OUTSIDE RECORDS SUMMARY | 2024-10-26 02:54 | XMS_ITS | Encounter Summary ---
Author Organization [facility] Address [address] [place] [address] Care Team Providers Care Electronic Page Makeup System Operator Name Role Phone Zach Rhodes MD Primary Care Provider [phone] Encounter Details Date Type Department Care Team (Late st Contact Info) Description 07/29/2022 OpenSynergyt Message Enc [facility] Medical Group Family & Internal Medicine [facility] [address] [place] [address] [place] [address] [place], [place] [id number] Flu shot Social History Tobacco Use Types Packs/Day Years [...] st Contact Info) Description 10/31/2024 1:00 PM CARPENTER GENERAL Appointment [facility] [address] [place] [address] [place] [address] [place] [address] Tal Greenberg MD [facility] [address] [place] [address] 11/02/2024 1:45 PM CARPENTER GENERAL Appointment [facility] [address] [place] [address] Tal Greenberg MD [facility] [facility] [address] [place] [address] Marielle Gaming, AREA RELIEF PILOT 11/04/2024 1:45 PM CARPENTER GENERAL Appointment [facility] [address] [place] [address] Tal Greenberg MD [address] [facility] [address] [place] [address] Marielle Gaming, AREA RELIEF PILOT 11/07/2024 3:00 PM CARPENTER GENERAL Appointment [facility] [address] [place] [address] [place] [address] [place] [address] Tal Greenberg MD [address] [facility] [address] [place] [address] 11/09/2024 1:45 PM CARPENTER GENERAL Appointment [facility] [address] [place] [address] Tal Greenberg MD [address] [facility] [address] [place] [address] Marielle Gaming, AREA RELIEF PILOT 11/11/2024 1:45 PM CARPENTER GENERAL Appointment [facility] [address] [place] [address] Tal Greenberg MD [facility] [facility] [address] [place] [address] Marielle Gaming, AREA RELIEF PILOT 11/14/2024 1:45 PM CARPENTER GENERAL Appointment [facility] [address] [place] [address] Tal Greenberg MD [facility] [facility] [address] [place] [address] Marielle Gaming, AREA RELIEF PILOT 11/16/2024 1:45 PM CARPENTER GENERAL Appointment [facility] [address] [place] [address] Tal Greenberg MD [facility] [address] [place] [address] [place] [address] [place], [place] [id number] 11/18/2024 1:45 PM CARPENTER GENERAL Appointment [facility] [address] [place] [address] [place] [address] [place] [address] Tal Greenberg MD [address] [facility] [address] [place] [address] 11/21/2024 1:00 PM CARPENTER GENERAL Appointment [facility] [address] [place] [address] [place] [address] [place] [address] Tal Greenberg MD [address] [facility] [address] [place] [address] 11/23/2024 1:45 PM CARPENTER GENERAL Appointment [facility] [address] [place] [address] Tal Greenberg MD [address] [facility] [address] [place] [address] Marielle Gaming PTA 11/25/2024 1:45 PM CARPENTER GENERAL Appointment [facility] [address] [place] [address] Tal Greenberg MD [address] [facility] [address] [place] [address] Marielle Gaming PTA documented as of this encounter Visit Diagnoses Not on filedocumented in this encounter Additional Health Concerns Infection Onset Date Last Indicated Resolved Time COVID-19 Rule Out 09/09/2022 09/09/2022 09/09/2022 9:17 AM CARPENTER GENERAL Assessment Noted Time PHQ-9 Depression Total Score: 10 06/09/ 022 9:01 AM CDT documented as of this encounter Care Teams Electronic Page Makeup System Operator Relationship Specialty [place] [address] [place] [address] PCP - General FAMILY PRACTICE 09/27/18 documented as of this encounter
--- OUTSIDE RECORDS SUMMARY | 2024-10-26 02:54 | XMS_ITS | Encounter Summary ---
Author Organization [facility] Address [address] [place] [address] Care Team Providers Care Railroad Operator Name Role Phone Zach Rhodes MD Primary Care Provider [phone] Encounter Details Date Type Department Care Team (Late st Contact Info) Description 01/14/2022 Ubertesterst Message Enc [facility] Medical Group Family & Internal Medicine [facility] [address] [place] [address] Zach Rhodes [place] [id number] [place] [address] this is for hussain Social History Tobacco Use Types Packs/Day Years [...] st Contact Info) Description 10/31/2024 1:00 PM FISHER OYSTER Appointment [facility] [address] [place] [address] [place] [address] [place] [address] Tal Greenberg MD 4804 [facility] [address] [place] [address] 11/02/2024 1:45 PM FISHER OYSTER Appointment [facility] [address] [place] [address] Tal Greenberg MD 4804 [facility] [address] [place] [address] Marielle Gaming, MOLDER SETTER 11/04/2024 1:45 PM FISHER OYSTER Appointment [facility] [address] [place] [address] Tal Greenberg MD [facility] [address] [place] [address] Marielle Gaming, MOLDER SETTER 11/07/2024 3:00 PM FISHER OYSTER Appointment [facility] [address] [place] [address] [place] [address] [place] [address] Tal Greenberg MD 4804 [facility] [address] [place] [address] 11/09/2024 1:45 PM FISHER OYSTER Appointment [facility] [address] [place] [address] Tal Greenberg MD 4804 [facility] [address] [place] [address] Marielle Gaming, MOLDER SETTER 11/11/2024 1:45 PM FISHER OYSTER Appointment [facility] [address] [place] [address] Tal Greenberg MD 4804 [facility] [address] [place] [address] Marielle Gaming, MOLDER SETTER 11/14/2024 1:45 PM FISHER OYSTER Appointment [facility] [address] [place] [address] Tal Greenberg MD 4804 [facility] [address] [place] [address] Marielle Gaming, MOLDER SETTER 11/16/2024 1:45 PM FISHER OYSTER Appointment [facility] [address] [place] [address] Tal Greenberg MD [facility] [address] [place] [address] [place] [address] [place] [address] 11/18/2024 1:45 PM FISHER OYSTER Appointment [facility] [address] [place] [address] [place] [address] [place] [address] Tal Greenberg MD 4804 [facility] [address] [place] [address] 11/21/2024 1:00 PM FISHER OYSTER Appointment [facility] [address] [place] [address] [place] [address] [place] [address] Tal Greenberg MD 4804 [facility] [address] [place] [address] 11/23/2024 1:45 PM FISHER OYSTER [facility]ointment [facility] [address] [place] [address] Tal Greenberg MD 4804 [facility] [address] [place] [address] Marielle Gaming PTA 11/25/2024 1:45 PM FISHER OYSTER Appointment [facility] [address] [place] [address] Tal Greenberg MD 4804 [facility] [address] [place] [address] Marielle Gaming PTA documented as of this encounter Visit Diagnoses Not on filedocumented in this encounter Additional Health Concerns Infection Onset Date Last Indicated Resolved Time COVID-19 Rule Out 09/09/2022 09/09/2022 09/09/2022 9:17 AM FISHER OYSTER Assessment Noted Time PHQ-9 Depression Total Score: 7 05/31/20 21 9:09 AM CDT documented as of this encounter Care Teams Railroad Operator Relationship Specialty [place] [address] [place] [address] PCP - General FAMILY PRACTICE 09/27/18 documented as of this encounter
--- OUTSIDE RECORDS SUMMARY | 2024-10-26 02:54 | XMS_ITS | Encounter Summary ---
Author Organization [facility] Address [address] [place] [address] Care Team Providers Care Table Tender Name Role Phone Zach Rhodes MD Primary Care Provider [phone] Encounter Details Date Type Department Care Team (Late st Contact Info) Description 05/31/2021 Fanli websitet Message Enc [facility] Medical Group Family & Internal Medicine [facility] [address] [place] [address] Zach Rhodes MD [id number] [place] [address] [phone] RE: Medication Questions Social History Tobacco Use [...] have Coronavirus / COVID-19? No / Unsure 05/31/2021 8:50 AM CDT documented as of this encounter Plan of Treatment Upcoming Encounters Date Type Department Care Team (Late st Contact Info) Description 10/31/2024 1:00 PM CALTRANS EQUIPMENT OPERATOR Appointment [facility] [address] [place] [address] [place] [address] [place] [address] Tal Greenberg MD [address] [place] [address] [address] [place] [address] 11/02/2024 1:45 PM CALTRANS EQUIPMENT OPERATOR Appointment [facility] [address] [place] [address] Tal Greenberg MD [address] [place] [address] [address] [place] [address] Marielle Gaming, SATELLITE COMMUNICATIONS OPERATOR 11/04/2024 1:45 PM CALTRANS EQUIPMENT OPERATOR Appointment [facility] [address] [place] [address] Tal Greenberg MD [address] [place] [address] [address] [place] [address] Marielle Gaming, SATELLITE COMMUNICATIONS OPERATOR 11/07/2024 3:00 PM CALTRANS EQUIPMENT OPERATOR Appointment [facility] [address] [place] [address] [place] [address] [place] [address] Tal Greenberg MD [address] [place] [address] [address] [place] [address] 11/09/2024 1:45 PM CALTRANS EQUIPMENT OPERATOR Appointment [facility] [address] [place] [address] Tal Greenberg MD [address] [facility] [address] [place] [address] Marielle Gaming, SATELLITE COMMUNICATIONS OPERATOR 11/11/2024 1:45 PM CALTRANS EQUIPMENT OPERATOR Appointment [facility] [address] [place] [address] Tal Greenberg MD [address] [facility] [address] [place] [address] Marielle Gaming, SATELLITE COMMUNICATIONS OPERATOR 11/14/2024 1:45 PM CALTRANS EQUIPMENT OPERATOR Appointment [facility] [address] [place] [address] Tal Greenberg MD [address] [facility] [address] [place] [address] Marielle Gaming, SATELLITE COMMUNICATIONS OPERATOR 11/16/2024 1:45 PM CALTRANS EQUIPMENT OPERATOR Appointment [facility] [address] [place] [address] Tal Greenberg MD [address] [facility] [address] [place] [address] [place] [address] [place] [address] 11/18/2024 1:45 PM CALTRANS EQUIPMENT OPERATOR Appointment [facility] [address] [place] [address] [place] [address] [place] [address] Tal Greenberg MD [address] [facility] [address] [place] [address] 11/21/2024 1:00 PM CALTRANS EQUIPMENT OPERATOR Appointment [facility] [address] [place] [address] [place] [address] [place] [address] Tal Greenberg MD [address] [facility] [address] [place] [address] 11/23/2024 1:45 PM CALTRANS EQUIPMENT OPERATOR [facility]ointment [facility] [address] [place] [address] Tal Greenberg MD [address] [facility] [address] [place] [address] Marielle Gaming PTA 11/25/2024 1:45 PM CALTRANS EQUIPMENT OPERATOR [facility]ointment [facility] [address] [place] [address] Tal Greenberg MD [address] [facility] [address] [place] [address] Marielle Gaming, CABRERA documented as of this encounter Visit Diagnoses Not on filedocumented in this encounter Additional Health Concerns Infection Onset Date Last Indicated Resolved Time COVID-19 Rule Out 09/09/2022 09/09/2022 09/09/2022 9:17 AM CALTRANS EQUIPMENT OPERATOR Assessment Noted Time PHQ-9 Depression Total Score: 7 05/31/20 21 9:09 AM CDT documented as of this encounter Care Teams Table Tender Relationship Specialty [place] [address] [place] [address] PCP - General FAMILY PRACTICE 09/27/18 documented as of this encounter
--- OUTSIDE RECORDS SUMMARY | 2024-10-26 02:54 | XMS_ITS | Encounter Summary ---
Author Organization [facility] Address [address] [place] [address] Care Team Providers Care Refrigeration Houseman Name Role Phone Zach Rhodes MD Primary Care Provider [phone] Encounter Details Date Type Department Care Team ([facility] Contact Info) Description 05/05/2023 Bukupe Message Enc [facility] Medical Group Family & Internal Medicine [facility] [address] [place] [address] [facility], [facility] Provider Appointment Social History Tobacco Use Types Packs/Day Years [...] Upcoming Encounters Date Type Department Care Team ([facility] Contact Info) Description 10/31/2024 1:00 PM ELECTROMECHANISMS DESIGN DRAFTER Appointment [facility] [address] [place] [address] [place] [address] [place] [address] Tal Greenberg MD [facility] [address] [place] [address] 11/02/2024 1:45 PM ELECTROMECHANISMS DESIGN DRAFTER Appointment [facility] [address] [place] [address] Tal Greenberg MD [facility] [address] [place] [address] Marielle Gaming, CORPORATE SALES MANAGER 11/04/2024 1:45 PM ELECTROMECHANISMS DESIGN DRAFTER Appointment [facility] [address] [place] [address] Tal Greenberg MD [facility] [address] [place] [address] Marielle Gaming, CORPORATE SALES MANAGER 11/07/2024 3:00 PM ELECTROMECHANISMS DESIGN DRAFTER Appointment [facility] [address] [place] [address] [place] [address] [place] [address] Tal Greenberg MD [facility] [address] [place] [address] 11/09/2024 1:45 PM ELECTROMECHANISMS DESIGN DRAFTER Appointment [facility] [address] [place] [address] Tal Greenberg MD [facility] [address] [place] [address] Marielle Gaming, CORPORATE SALES MANAGER 11/11/2024 1:45 PM ELECTROMECHANISMS DESIGN DRAFTER Appointment [facility] [address] [place] [address] Tal Greenberg MD [address]4 [facility] [address] [place] [address] Marielle Gaming, CORPORATE SALES MANAGER 11/14/2024 1:45 PM ELECTROMECHANISMS DESIGN DRAFTER Appointment [facility] [address] [place] [address] Tal Greenberg MD [facility] [address] [place] [address] Marielle Gaming, CORPORATE SALES MANAGER 11/16/2024 1:45 PM ELECTROMECHANISMS DESIGN DRAFTER Appointment [facility] [address] [place] [address] Tal Greenberg MD [facility] [address] [place] [address] [place] [address] [place] [address] 11/18/2024 1:45 PM ELECTROMECHANISMS DESIGN DRAFTER Appointment [facility] [address] [place] [address] [place] [address] [place] [address] Tal Greenberg MD [facility] [address] [place] [address] 11/21/2024 1:00 PM ELECTROMECHANISMS DESIGN DRAFTER Appointment [facility] [address] [place] [address] [place] [address] [place] [address] Tal Greenberg MD [address]4 [facility] [address] [place] [address] 11/23/2024 1:45 PM ELECTROMECHANISMS DESIGN DRAFTER Appointment [facility] [address] [place] [address] Tal Greenberg MD [facility] [address] [place] [address] Marielle Gaming PTA 11/25/2024 1:45 PM ELECTROMECHANISMS DESIGN DRAFTER Appointment [facility] [address] [place] [address] Tal Greenberg MD [facility] [address] [place] [address] Marielle Gaming PTA documented as of this encounter Visit Diagnoses Not on filedocumented in this encounter Additional Health Concerns Assessment Noted Time PHQ-9 Depression Total Score: 10 06/09/ 022 9:01 AM CDT documented as of this encounter Care Teams Refrigeration Houseman Relationship Specialty [place] [address] [place] [address] PCP - General FAMILY PRACTICE 09/27/18 documented as of this encounter
--- OUTSIDE RECORDS SUMMARY | 2024-10-26 02:54 | XMS_ITS | Encounter Summary ---
Author Organization [facility] Address [address] [place] [address] Care Team Providers Care Brine Well Operator Name Role Phone Zach Rhodes MD Primary Care Provider [phone] Encounter Details Date Type Department Care Team (Late Contact Info) Description 08/13/2021 [employer]ca [employer] Message Enc [facility] Medical Group Family & Internal Medicine [address] [address] [facility], [facility] Provider Forms Social History Tobacco Use Types Packs/Day Years [...] have Coronavirus / COVID-19? No / Unsure 08/07/2021 1:12 PM JOY OPERATOR HELPER documented as of this encounter Plan of Treatment Upcoming Encounters Date Type Department Care Team (Late st Contact Info) Description 10/31/2024 1:00 PM JOY OPERATOR HELPER Appointment [facility] [address] [place] [address] [place] [address] [place] [address] Tal Greenberg MD 4804 [facility] [address] [place] [address] 11/02/2024 1:45 PM JOY OPERATOR HELPER Appointment [facility] [address] [place] [address] Tal Greenberg MD 4804 [facility] [address] [place] [address] Marielle Gaming, RACING CAR DRIVER 11/04/2024 1:45 PM JOY OPERATOR HELPER Appointment [facility] [address] [place] [address] Tal Greenberg MD 4804 [facility] [address] [place] [address] Marielle Gaming, RACING CAR DRIVER 11/07/2024 3:00 PM JOY OPERATOR HELPER Appointment [facility] [address] [place] [address] [place] [address] [place] [address] Tal Greenberg MD 4804 [facility] [address] [place] [address] 11/09/2024 1:45 PM JOY OPERATOR HELPER Appointment [facility] [address] [place] [address] Tal Greenberg MD 4804 [facility] [address] [place] [address] Marielle Gaming, RACING CAR DRIVER 11/11/2024 1:45 PM JOY OPERATOR HELPER Appointment [facility] [address] [place] [address] Tal Greenberg MD 4804 [facility] [address] [place] [address] Marielle Gaming, RACING CAR DRIVER 11/14/2024 1:45 PM JOY OPERATOR HELPER Appointment [facility] [address] [place] [address] Tal Greenberg MD 4804 [facility] [address] [place] [address] Marielle Gaming, RACING CAR DRIVER 11/16/2024 1:45 PM JOY OPERATOR HELPER Appointment [facility] [address] [place] [address] Tal Greenberg MD [facility] [address] [place] [address] [place] [address] [place], [place] [id number] 11/18/2024 1:45 PM JOY OPERATOR HELPER Appointment [facility] [address] [place] [address] [place] [address] [place] [address] Tal Greenberg MD 4804 [facility] [address] [place] [address] 11/21/2024 1:00 PM JOY OPERATOR HELPER Appointment [facility] [address] [place] [address] [place] [address] [place] [address] Tal Greenberg MD 4804 [facility] [address] [place] [address] 11/23/2024 1:45 PM JOY OPERATOR HELPER Appointment [facility] [address] [place] [address] Tal Greenberg MD 4804 [facility] [address] [place] [address] Marielle Gaming PTA 11/25/2024 1:45 PM JOY OPERATOR HELPER Appointment [facility] [address] [place] [address] Tal Greenberg MD 4804 [facility] [address] [place] [address] Marielle Gaming PTA documented as of this encounter Visit Diagnoses Not on filedocumented in this encounter Additional Health Concerns Infection Onset Date Last Indicated Resolved Time COVID-19 Rule Out 09/09/2022 09/09/2022 09/09/2022 9:17 AM JOY OPERATOR HELPER Assessment Noted Time PHQ-9 Depression Total Score: 7 05/31/20 21 9:09 AM CDT documented as of this encounter Care Teams Brine Well Operator Relationship Specialty [place] [address] [place] [address] PCP - General FAMILY PRACTICE 09/27/18 documented as of this encounter
--- OUTSIDE RECORDS SUMMARY | 2024-10-26 02:54 | XMS_ITS | Encounter Summary ---
Author Organization [facility] Address [address] [place] [address] Care Team Providers Care Contracts Representative Name Role Phone Zach Rhodes MD Primary Care Provider [phone] Encounter Details Date Type Department Care Team (Late Contact Info) Description 03/31/2023 Alt[employer]iant Message Enc [facility] Medical Group Family & Internal Medicine [facility] [address] [place] [address] [place] [address] [place], [place] [id number] Dietary Social History Tobacco Use Types Packs/Day Years [...] (Late Contact Info) Description 10/31/2024 1:00 PM PRICER Appointment [facility] [address] [place] [address] [place] [address] [place] [address] Tal Greenberg MD 4804 [facility] [address] [place] [address] 11/02/2024 1:45 PM PRICER Appointment [facility] [address] [place] [address] Tal Greenberg MD 4804 [facility] [address] [place] [address] Marielle Gaming, INTERFACE DESIGNER 11/04/2024 1:45 PM PRICER Appointment [facility] [address] [place] [address] Tal Greenberg MD 4804 [facility] [address] [place] [address] Marielle Gaming, INTERFACE DESIGNER 11/07/2024 3:00 PM PRICER Appointment [facility] [address] [place] [address] [place] [address] [place] [address] Tal Greenberg MD 4804 [facility] [address] [place] [address] 11/09/2024 1:45 PM PRICER Appointment [facility] [address] [place] [address] Tal Greenberg MD 4804 [facility] [address] [place] [address] Marielle Gaming, INTERFACE DESIGNER 11/11/2024 1:45 PM PRICER Appointment [facility] [address] [place] [address] Tal Greenberg MD 4804 [facility] [address] [place] [address] Marielle Gaming, INTERFACE DESIGNER 11/14/2024 1:45 PM PRICER Appointment [facility] [address] [place] [address] Tal Greenberg MD 4804 [facility] [address] [place] [address] Marielle Gaming, INTERFACE DESIGNER 11/16/2024 1:45 PM PRICER Appointment [facility] [address] [place] [address] Tal Greenberg MD [facility] [address] [place] [address] [place] [address] [place], [place] [address] 11/18/2024 1:45 PM PRICER Appointment [facility] [address] [place] [address] [place] [address] [place] [address] Tal Greenberg MD 4804 [facility] [address] [place] [address] 11/21/2024 1:00 PM PRICER Appointment [facility] [address] [place] [address] [place] [address] [place] [address] Tal Greenberg MD 4804 [facility] [address] [place] [address] 11/23/2024 1:45 PM PRICER Appointment [facility] [address] [place] [address] Tal Greenberg MD 4804 [facility] [address] [place] [address] Marielle Gaming PTA 11/25/2024 1:45 PM PRICER Appointment [facility] [address] [place] [address] Tal Greenberg MD 4804 [facility] [address] [place] [address] Marielle Gaming PTA documented as of this encounter Visit Diagnoses Not on filedocumented in this encounter Additional Health Concerns Assessment Noted Time PHQ-9 Depression Total Score: 10 022 9:01 AM CDT documented as of this encounter Care Teams Contracts Representative Relationship Specialty [place] [address] [place] [address] PCP - General FAMILY PRACTICE 09/27/18 documented as of this encounter
--- OUTSIDE RECORDS SUMMARY | 2024-10-26 02:54 | XMS_ITS | Encounter Summary ---
Author Organization [facility] Address [address] [place] [address] Care Team Providers Care Manager Utilization Management Name Role Phone Zach Rhodes MD Primary Care Provider [phone] Encounter Details Date Type Department Care Team (Late st Contact Info) Description 06/24/2022 [employer]t Message Enc [facility] Medical Group Family & Internal Medicine [facility] [address] [place] [address] Zach [place] [id number] [place] [address] Blood pressure Social History Tobacco Use Types Packs/Day Years [...] suspected to have Coronavirus/COVID-19? No / Unsure 06/18/2022 8:48 AM CDT documented as of this encounter Plan of Treatment Upcoming Encounters Date Type Department Care Team (Late st Contact Info) Description 10/31/2024 1:00 PM SCRUB NURSE Appointment [facility] [address] [place] [address] [place] [address] [place] [address] Tal Greenberg MD 4804 [facility] [address] [place] [address] 11/02/2024 1:45 PM SCRUB NURSE Appointment [facility] [address] [place] [address] Tal Greenberg MD [facility] [address] [place] [address] Marielle Gaming, PATIENT SERVICE SPECIALIST 11/04/2024 1:45 PM SCRUB NURSE Appointment [facility] [address] [place] [address] Tal Greenberg MD [facility] [address] [place] [address] Marielle Gaming, PATIENT SERVICE SPECIALIST 11/07/2024 3:00 PM SCRUB NURSE Appointment [facility] [address] [place] [address] [place] [address] [place] [address] Tal Greenberg MD [facility] [address] [place] [address] 11/09/2024 1:45 PM SCRUB NURSE Appointment [facility] [address] [place] [address] Tal Greenberg MD 4804 [facility] [address] [place] [address] Marielle Gaming, PATIENT SERVICE SPECIALIST 11/11/2024 1:45 PM SCRUB NURSE Appointment [facility] [address] [place] [address] Tal Greenberg MD 4804 [facility] [address] [place] [address] Marielle Gaming, PATIENT SERVICE SPECIALIST 11/14/2024 1:45 PM SCRUB NURSE Appointment [facility] [address] [place] [address] Tal Greenberg MD [facility] [address] [place] [address] Marielle Gaming, PATIENT SERVICE SPECIALIST 11/16/2024 1:45 PM SCRUB NURSE Appointment [facility] [address] [place] [address] Tal Greenberg MD [facility] [address] [place] [address] [place] [address] [place] [address] 11/18/2024 1:45 PM SCRUB NURSE Appointment [facility] [address] [place] [address] [place] [address] [place] [address] Tal Greenberg MD [facility] [address] [place] [address] 11/21/2024 1:00 PM SCRUB NURSE Appointment [facility] [address] [place] [address] [place] [address] [place] [address] Tal Greenberg MD 4804 [facility] [address] [place] [address] 11/23/2024 1:45 PM SCRUB NURSE Appointment [facility] [address] [place] [address] Tal Greenberg MD 4804 [facility] [address] [place] [address] Marielle Gaming PTA 11/25/2024 1:45 PM SCRUB NURSE Appointment [facility] [address] [place] [address] Tal Greenberg MD [facility] [address] [place] [address] Marielle Gaming, PATIENT SERVICE SPECIALIST documented as of this encounter Visit Diagnoses Not on filedocumented in this encounter Additional Health Concerns Infection Onset Date Last Indicated Resolved Time COVID-19 Rule Out 09/09/2022 09/09/2022 09/09/2022 9:17 AM SCRUB NURSE Assessment Noted Time PHQ-9 Depression Total Score: 10 022 9:01 AM CDT documented as of this encounter Care Teams Manager Utilization Management Relationship Specialty [place] [address] [place] [address] PCP - General FAMILY PRACTICE 09/27/18 documented as of this encounter
--- OUTSIDE RECORDS SUMMARY | 2024-10-26 02:54 | XMS_ITS | Encounter Summary ---
Author Organization [facility] Address [address] [place] [address] Care Team Providers Care Websphere Portal Architect Name Role Phone Zach Rhodes MD Primary Care Provider [phone] Encounter Details Date Type Department Care Team (Late st Contact Info) Description 08/19/2021 [employer] Message Enc [facility] Medical Group Family & Internal Medicine [address] [address] [facility] Provider Paperwork Social History Tobacco Use Types Packs/Day Years [...] COVID-19? No / Unsure 08/07/2021 1:12 PM OIL HEATER OPERATOR documented as of this encounter Plan of Treatment Upcoming Encounters Date Type Department Care Team (Late st Contact Info) Description 10/31/2024 1:00 PM OIL HEATER OPERATOR Appointment [facility] [address] [place] [address] [place] [address] [place] [address] Tal Greenberg MD 4804 [facility] [address] [place] [address] 11/02/2024 1:45 PM OIL HEATER OPERATOR Appointment [facility] [address] [place] [address] Tal Greenberg MD 4804 [facility] [address] [place] [address] Marielle Gaming, ACTING TEACHER 11/04/2024 1:45 PM OIL HEATER OPERATOR Appointment [facility] [address] [place] [address] Tal Greenberg MD 4804 [facility] [address] [place] [address] Marielle Gaming, ACTING TEACHER 11/07/2024 3:00 PM OIL HEATER OPERATOR Appointment [facility] [address] [place] [address] [place] [address] [place] [address] Tal Greenberg MD 4804 [facility] [address] [place] [address] 11/09/2024 1:45 PM OIL HEATER OPERATOR Appointment [facility] [address] [place] [address] Tal Greenberg MD 4804 [facility] [address] [place] [address] Marielle Gaming, ACTING TEACHER 11/11/2024 1:45 PM OIL HEATER OPERATOR Appointment [facility] [address] [place] [address] Tal Greenberg MD 4804 [facility] [address] [place] [address] Marielle Gaming, ACTING TEACHER 11/14/2024 1:45 PM OIL HEATER OPERATOR Appointment [facility] [address] [place] [address] Tal Greenberg MD 4804 [facility] [address] [place] [address] Marielle Gaming, ACTING TEACHER 11/16/2024 1:45 PM OIL HEATER OPERATOR Appointment [facility] [address] [place] [address] Tal Greenberg MD 4804 [facility] [address] [place] [address] [place] [address] [place] [id number] 11/18/2024 1:45 PM OIL HEATER OPERATOR Appointment [facility] [address] [place] [address] [place] [address] [place] [address] Tal Greenberg MD 4804 [facility] [address] [place] [address] 11/21/2024 1:00 PM OIL HEATER OPERATOR Appointment [facility] [address] [place] [address] [place] [address] [place] [address] Tal Greenberg MD 4804 [facility] [address] [place] [address] 11/23/2024 1:45 PM OIL HEATER OPERATOR Appointment [facility] [address] [place] [address] Tal Greenberg MD 4804 [facility] [address] [place] [address] Marielle Gaming PTA 11/25/2024 1:45 PM OIL HEATER OPERATOR Appointment [facility] [address] [place] [address] Tal Greenberg MD 4804 [facility] [address] [place] [address] Marielle Gaming PTA documented as of this encounter Visit Diagnoses Not on filedocumented in this encounter Additional Health Concerns Infection Onset Date Last Indicated Resolved Time COVID-19 Rule Out 09/09/2022 09/09/2022 09/09/2022 9:17 AM OIL HEATER OPERATOR Assessment Noted Time PHQ-9 Depression Total Score: 7 05/31/20 21 9:09 AM CDT documented as of this encounter Care Teams Websphere Portal Architect Relationship Specialty [place] [address] [place] [address] PCP - General FAMILY PRACTICE 09/27/18 documented as of this encounter
--- OUTSIDE RECORDS SUMMARY | 2024-10-26 02:54 | XMS_ITS | Encounter Summary ---
Author Organization [facility] Address [address] [place] [address] Care Team Providers Care Furniture Servicer Name Role Phone Zach Rhodes MD Primary Care Provider [phone] Encounter Details Date Type Department Care Team (Late st Contact Info) Description 12/09/2022 [employer] Message Enc [facility] Medical Group Family & Internal Medicine [facility] [address] [place] [address] Zach [place] [id number] [place] [address] Sleep medicine Social History Tobacco Use Types Packs/Day Years [...] suspected to have Coronavirus/COVID-19? No / Unsure 12/08/2022 8:49 AM CDT documented as of this encounter Plan of Treatment Upcoming Encounters Date Type Department Care Team (Late st Contact Info) Description 10/31/2024 1:00 PM PHARMACOGENETICIST Appointment [facility] [address] [place] [address] [place] [address] [place] [address] Tal Greenberg MD 4804 [facility] [address] [place] [address] 11/02/2024 1:45 PM PHARMACOGENETICIST Appointment [facility] [address] [place] [address] Tal Greenberg MD [facility] [address] [place] [address] Marielle Gaming, EXTENSION SERVICE SUPERVISOR 11/04/2024 1:45 PM PHARMACOGENETICIST Appointment [facility] [address] [place] [address] Tal Greenberg MD [facility] [address] [place] [address] Marielle Gaming, EXTENSION SERVICE SUPERVISOR 11/07/2024 3:00 PM PHARMACOGENETICIST Appointment [facility] [address] [place] [address] [place] [address] [place] [address] Tal Greenberg MD [facility] [address] [place] [address] 11/09/2024 1:45 PM PHARMACOGENETICIST Appointment [facility] [address] [place] [address] Tal Greenberg MD 4804 [facility] [address] [place] [address] Marielle Gaming, EXTENSION SERVICE SUPERVISOR 11/11/2024 1:45 PM PHARMACOGENETICIST Appointment [facility] [address] [place] [address] Tal Greenberg MD 4804 [facility] [address] [place] [address] Marielle Gaming, EXTENSION SERVICE SUPERVISOR 11/14/2024 1:45 PM PHARMACOGENETICIST Appointment [facility] [address] [place] [address] Tal Greenberg MD [facility] [address] [place] [address] Marielle Gaming, EXTENSION SERVICE SUPERVISOR 11/16/2024 1:45 PM PHARMACOGENETICIST Appointment [facility] [address] [place] [address] Tal Greenberg MD [facility] [address] [place] [address] [place] [address] [place] [address] 11/18/2024 1:45 PM PHARMACOGENETICIST Appointment [facility] [address] [place] [address] [place] [address] [place] [address] Tal Greenberg MD [facility] [address] [place] [address] 11/21/2024 1:00 PM PHARMACOGENETICIST Appointment [facility] [address] [place] [address] [place] [address] [place] [address] Tal Greenberg MD 4804 [facility] [address] [place] [address] 11/23/2024 1:45 PM PHARMACOGENETICIST Appointment [facility] [address] [place] [address] Tal Greenberg MD 4804 [facility] [address] [place] [address] Marielle Gaming PTA 11/25/2024 1:45 PM PHARMACOGENETICIST Appointment [facility] [address] [place] [address] Tal Greenberg MD [facility] [address] [place] [address] Marielle Gaming PTA documented as of this encounter Visit Diagnoses Not on filedocumented in this encounter Additional Health Concerns Assessment Noted Time PHQ-9 Depression Total Score: 10 06/09/2 022 9:01 AM CDT documented as of this encounter Care Teams Furniture Servicer Relationship Specialty [place] [address] [place] [address] PCP - General FAMILY PRACTICE 09/27/18 documented as of this encounter
--- OUTSIDE RECORDS SUMMARY | 2024-10-26 02:54 | XMS_ITS | Encounter Summary ---
Author Organization [facility] Address [address] [place] [address] Care Team Providers Care Cooking Show Host Name Role Phone Zach Rhodes MD Primary Care Provider [phone] Encounter Details Date Type Department Care Team (Late st Contact Info) Description 11/12/2022 [employer] Message Enc [facility] Medical Group Family & Internal Medicine [facility] [address] [place] [address] Zach [place] [id number] [place] [address] Carbs Social History Tobacco Use Types Packs/Day Years [...] Coronavirus/COVID-19? No / Unsure 10/31/2022 10:[address] TABLEMAN documented as of this encounter Plan of Treatment Upcoming Encounters Date Type Department Care Team (Late st Contact Info) Description 10/31/2024 1:[address]MAN Appointment [facility] [address] [place] [address] [place] [address] [place] [address] Tal Greenberg MD [facility] [address] [place] [address] 11/02/2024 1:[address] Appointment [facility] [address] [place] [address] Tal Greenberg MD [facility] [address] [place] [address] Marielle Gaming, BEVEL GEAR GENERATOR OPERATOR 11/04/2024 1:[address] Appointment [facility] [address] [place] [address] Tal Greenberg MD [facility] [address] [place] [address] Marielle Gaming, BEVEL GEAR GENERATOR OPERATOR 11/07/2024 3:[address]MAN Appointment [facility] [address] [place] [address] [place] [address] [place] [address] Tal Greenberg MD [facility] [address] [place] [address] 11/09/2024 1:[address] TABLEMAN Appointment [facility] [address] [place] [address] Tal Greenberg MD 4804 [facility] [address] [place] [address] Marielle Gaming, BEVEL GEAR GENERATOR OPERATOR 11/11/2024 1:[address] Appointment [facility] [address] [place] [address] Tal Greenberg MD 4804 [facility] [address] [place] [address] Marielle Gaming, BEVEL GEAR GENERATOR OPERATOR 11/14/2024 1:[address]MAN Appointment [facility] [address] [place] [address] Tal Greenberg MD 4804 [facility] [address] [place] [address] Marielle Gaming, BEVEL GEAR GENERATOR OPERATOR 11/16/2024 1:[address] Appointment [facility] [address] [place] [address] Tal Greenberg MD 4804 [facility] [address] [place] [address] [place] [address] [place] [id number] 11/18/2024 1:[address] Appointment [facility] [address] [place] [address] [place] [address] [place] [address] Tal Greenberg MD 4804 [facility] [address] [place] [address] 11/21/2024 1:[address]MAN Appointment [facility] [address] [place] [address] [place] [address] [place] [address] Tal Greenberg MD 4804 [facility] [address] [place] [address] 11/23/2024 1:[address] Appointment [facility] [address] [place] [address] Tal Greenberg MD 4804 [facility] [address] [place] [address] Marielle Gaming PTA 11/25/2024 1:[address] Appointment [facility] [address] [place] [address] Tal Greenberg MD [facility] [address] [place] [address] Marielle Gaming PTA documented as of this encounter Visit Diagnoses Not on filedocumented in this encounter Additional Health Concerns Assessment Noted Time PHQ-9 Depression Total Score: 10 06/09/2 022 9:01 AM CDT documented as of this encounter Care Teams Cooking Show Host Relationship Specialty [place] [address] [place] [address] PCP - General FAMILY PRACTICE 09/27/18 documented as of this encounter
--- OUTSIDE RECORDS SUMMARY | 2024-10-26 02:54 | XMS_ITS | Encounter Summary ---
Author Organization [facility] Address [address] [place] [address] Care Team Providers Care Collar Shaper Operator Name Role Phone Zach Rhodes MD Primary Care Provider [phone] Encounter Details Date Type Department Care Team (Late st Contact Info) Description 06/10/2022 [employer] Message Enc [facility] Medical Group Family & Internal Medicine [facility] [id number] [place] [phone] [place] [address] [place] [address] Test results from yesterday. Social History Tobacco Use Types Packs/Day Years [...] suspected to have Coronavirus/COVID-19? No / Unsure 06/09/2022 7:47 AM CDT documented as of this encounter Plan of Treatment Upcoming Encounters Date Type Department Care Team (Late st Contact Info) Description 10/31/2024 1:00 PM CABLE MAINTAINER Appointment [facility] [address] [place] [address] [place] [address] [place] [address] Tal Greenberg MD [facility] [address] [place] [address] 11/02/2024 1:45 PM CABLE MAINTAINER Appointment [facility] [address] [place] [address] Tal Greenberg MD [facility] [address] [place] [address] Marielle Gaming, CABRERA 11/04/2024 1:45 PM CABLE MAINTAINER [facility]ment [facility] [address] [place] [address] Tal Greenberg MD [facility] [address] [place] [address] Marielle Gaming, NIKE ATHLETE 11/07/2024 3:00 PM CABLE MAINTAINER Appointment [facility] [address] [place] [address] [place] [address] [place] [address] Tal Greenberg MD [facility] [address] [place] [address] 11/09/2024 1:45 PM CABLE MAINTAINER Appointment [facility] [address] [place] [address] Tal Greenberg MD 4804 [facility] [address] [place] [address] Marielle Gaming, NIKE ATHLETE 11/11/2024 1:45 PM CABLE MAINTAINER Appointment [facility] [address] [place] [address] Tal Greenberg MD 4804 [facility] [address] [place] [address] Marielle Gaming, NIKE ATHLETE 11/14/2024 1:45 PM CABLE MAINTAINER Appointment [facility] [address] [place] [address] Tal Greenberg MD 4804 [facility] [address] [place] [address] Marielle Gaming, NIKE ATHLETE 11/16/2024 1:45 PM CABLE MAINTAINER Appointment [facility] [address] [place] [address] Tal Greenberg MD 4804 [facility] [address] [place] [address] [place] [address] [place] [address] 11/18/2024 1:45 PM CABLE MAINTAINER Appointment [facility] [address] [place] [address] [place] [address] [place] [address] Tal Greenberg MD 4804 [facility] [address] [place] [address] 11/21/2024 1:00 PM CABLE MAINTAINER Appointment [facility] [address] [place] [address] [place] [address] [place] [address] Tal Greenberg MD 4804 [facility] [address] [place] [address] 11/23/2024 1:45 PM CABLE MAINTAINER Appointment [facility] [address] [place] [address] Tal Greenberg MD 4804 [facility] [address] [place] [address] Marielle Gaming PTA 11/25/2024 1:45 PM CABLE MAINTAINER Appointment [facility] [address] [place] [address] Tal Greenberg MD 4804 [facility] [address] [place] [address] Marielle Gaming, CABRERA documented as of this encounter Visit Diagnoses Not on filedocumented in this encounter Additional Health Concerns Infection Onset Date Last Indicated Resolved Time COVID-19 Rule Out 09/09/2022 09/09/2022 09/09/2022 9:17 AM CABLE MAINTAINER Assessment Noted Time PHQ-9 Depression Total Score: 10 2 022 9:01 AM CDT documented as of this encounter Care Teams Collar Shaper Operator Relationship Specialty [place] [address] [place] [address] PCP - General FAMILY PRACTICE 09/27/18 documented as of this encounter
--- OUTSIDE RECORDS SUMMARY | 2024-10-26 02:54 | XMS_ITS | Encounter Summary ---
Author Organization [facility] Address [address] [place] [address] Care Team Providers Care Artist Agent Name Role Phone Zach Rhodes MD Primary Care Provider [phone] Encounter Details Date Type Department Care Team (Late st Contact Info) Description 10/06/2022 [employer] Message Enc [facility] Medical Group Family & Internal Medicine [facility] [address] [place] [address] Zach Rhodes MD [id number] [place] [address] Knee brace Social History Tobacco Use Types Packs/Day Years [...] suspected to have Coronavirus/COVID-19? No / Unsure 09/09/2022 8:09 AM CUSTOMER EXPERIENCE MANAGER documented as of this encounter Plan of Treatment Upcoming Encounters Date Type Department Care Team (Late st Contact Info) Description 10/31/2024 1:00 PM CUSTOMER EXPERIENCE MANAGER Appointment [facility] [address] [place] [address] [place] [address] [place] [address] Tal Greenberg MD [facility] [address] [place] [address] 11/02/2024 1:45 PM CUSTOMER EXPERIENCE MANAGER Appointment [facility] [address] [place] [address] Tal Greenberg MD [facility] [address] [place] [address] Marielle Gaming, SHIP DESIGN TEACHER 11/04/2024 1:45 PM CUSTOMER EXPERIENCE MANAGER Appointment [facility] [address] [place] [address] Tal Greenberg MD [facility] [address] [place] [address] Marielle Gaming, SHIP DESIGN TEACHER 11/07/2024 3:00 PM CUSTOMER EXPERIENCE MANAGER Appointment [facility] [address] [place] [address] [place] [address] [place] [address] Tal Greenberg MD [facility] [address] [place] [address] 11/09/2024 1:45 PM CUSTOMER EXPERIENCE MANAGER Appointment [facility] [address] [place] [address] Tal Greenberg MD 4804 [facility] [address] [place] [address] Marielle Gaming, SHIP DESIGN TEACHER 11/11/2024 1:45 PM CUSTOMER EXPERIENCE MANAGER Appointment [facility] [address] [place] [address] Tal Greenberg MD 4804 [facility] [address] [place] [address] Marielle Gaming, SHIP DESIGN TEACHER 11/14/2024 1:45 PM CUSTOMER EXPERIENCE MANAGER Appointment [facility] [address] [place] [address] Tal Greenberg MD [facility] [address] [place] [address] Marielle Gaming, SHIP DESIGN TEACHER 11/16/2024 1:45 PM CUSTOMER EXPERIENCE MANAGER Appointment [facility] [address] [place] [address] Tal Greenberg MD [facility] [address] [place] [address] [place] [address] [place] [address] 11/18/2024 1:45 PM CUSTOMER EXPERIENCE MANAGER Appointment [facility] [address] [place] [address] [place] [address] [place] [address] Tal Greenberg MD [facility] [address] [place] [address] 11/21/2024 1:00 PM CUSTOMER EXPERIENCE MANAGER Appointment [facility] [address] [place] [address] [place] [address] [place] [address] Tal Greenberg MD 4804 [facility] [address] [place] [address] 11/23/2024 1:45 PM CUSTOMER EXPERIENCE MANAGER Appointment [facility] [address] [place] [address] Tal Greenberg MD 4804 [facility] [address] [place] [address] Marielle Gaming PTA 11/25/2024 1:45 PM CUSTOMER EXPERIENCE MANAGER Appointment [facility] [address] [place] [address] Tal Greenberg MD [facility] [address] [place] [address] Marielle Gaming PTA documented as of this encounter Visit Diagnoses Not on filedocumented in this encounter Additional Health Concerns Assessment Noted Time PHQ-9 Depression Total Score: 10 06/09/2 022 9:01 AM CDT documented as of this encounter Care Teams Artist Agent Relationship Specialty [place] [address] [place] [address] PCP - General FAMILY PRACTICE 09/27/18 documented as of this encounter
--- OUTSIDE RECORDS SUMMARY | 2024-10-26 02:54 | XMS_ITS | Encounter Summary ---
Author Organization [facility] Address [address] [place] [address] Care Team Providers Care Die Caster Name Role Phone Zach Rhodes MD Primary Care Provider [phone] Encounter Details Date Type Department Care Team (Late st Contact Info) Description 03/02/2023 Stormpulset Message Enc [facility] Medical Group Family & Internal Medicine [facility] [address] [place] [address] Zach Rhodes MD [id number] [place] [address] Blood work Social History Tobacco Use Types Packs/Day Years [...] suspected to have Coronavirus/COVID-19? No / Unsure 02/10/2023 7:29 AM CDT documented as of this encounter Progress Notes * Vivian Boudreaux RN - 03/04/2023 11:45 AM CDT Tried to call Dr Braun's office and they are at lunch from 11:30 to 12:30. Will call again to [phone]. documented in this encounter Plan of Treatment Upcoming Encounters Date Type Department Care Team (Late st Contact Info) Description 10/31/2024 1:00 PM GLOVE BRUSHER Appointment [facility] [address] [place] [address] [place] [address] [place] [address] Tal Greenberg MD [address] [place] [address] [address] [place] [address] 11/02/2024 1:45 PM [address]OVE [address]US[address] [facility] [address] [place] [address] Tal Greenberg MD [address] [place] [address] [address] [place] [address] Marielle Gaming, CABRERA 11/04/2024 1:45 PM GLOVE BRUSHER [facility]oint[address] [facility] [address] [place] [address] Tal Greenberg MD [facility] [address] [place] [address] Marielle Gamign, CABRERA 11/07/2024 3:00 PM GLOVE BRUSHER [facility]oint[address] [facility] [address] [place] [address] [place] [address] [place] [address] Tal Greenberg MD 4804 [facility] [address] [place] [address] 11/09/2024 1:45 PM GLOVE BRUSHER Appointment [facility] [address] [place] [address] Tal Greenberg MD 4804 [facility] [address] [place] [address] Marielle Gaming, BRINELL TESTER 11/11/2024 1:45 PM GLOVE BRUSHER Appointment [facility] [address] [place] [address] Tal Greenberg MD [facility] [address] [place] [address] Marielle Gaming, BRINELL TESTER 11/14/2024 1:45 PM GLOVE BRUSHER Appointment [facility] [address] [place] [address] Tal Greenberg MD [facility] [address] [place] [address] Marielle Gaming, BRINELL TESTER 11/16/2024 1:45 PM GLOVE BRUSHER Appointment [facility] [address] [place] [address] Tal Greenberg MD 4804 [facility] [address] [place] [address] [place] [address] [place] [address] 11/18/2024 1:45 PM GLOVE BRUSHER Appointment [facility] [address] [place] [address] [place] [address] [place] [address] Tal Greenberg MD [address] [place] [address] [address] [place] [address] 11/21/2024 1:00 PM GLOVE BRUSHER [facility]ointment [facility] [address] [place] [address] [place] [address] [place] [address] Tal Greenberg MD [address] [place] [address] [address] [place] [address] 11/23/2024 1:45 PM GLOVE BRUSHER Appointment [facility] [address] [place] [address] Tal Greenberg MD [address] [place] [address] [address] [place] [address] Marielle Gaming PTA 11/25/2024 1:45 PM GLOVE BRUSHER [facility]oint[address] [facility] [address] [place] [address] Tal Greenberg MD [address] [place] [address] [address] [place] [address] Marielle Gaming, BRINELL TESTER documented as of this encounter Visit Diagnoses Not on filedocumented in this encounter Additional Health Concerns Assessment Noted Time PHQ-9 Depression Total Score: 10 022 9:01 AM CDT documented as of this encounter Care Teams Die Caster Relationship Specialty [place] [address] [place] [address] PCP - General FAMILY PRACTICE 09/27/18 documented as of this encounter
--- OUTSIDE RECORDS SUMMARY | 2024-10-26 02:54 | XMS_ITS | Encounter Summary ---
Author Organization [facility] Address [address] [place] [address] Care Team Providers Care Mortgage Loan Originator Name Role Phone Zach Rhodes MD Primary Care Provider [phone] Encounter Details Date Type Department Care Team (Late st Contact Info) Description 10/29/2022 MDCapsulet Message Enc [facility] Medical Group Family & Internal Medicine [facility] [id number] [place] [address] Zach Rhodes [id number] [place] [address] A quick question Social History Tobacco Use Types Packs/Day Years [...] Coronavirus/COVID-19? No / Unsure 10/31/2022 10:44 AM TEAM PRIMARY CARE PHYSICIAN documented as of this encounter Plan of Treatment Upcoming Encounters Date Type Department Care Team (Late st Contact Info) Description 10/31/2024 1:00 PM TEAM PRIMARY CARE PHYSICIAN Appointment [facility] [address] [place] [address] [place] [address] [place] [address] Tal Greenberg MD 4804 [facility] [address] [place] [address] 11/02/2024 1:45 PM TEAM PRIMARY CARE PHYSICIAN Appointment [facility] [address] [place] [address] Tal Greenberg MD [facility] [address] [place] [address] Marielle Gaming, PATENT EXAMINER 11/04/2024 1:45 PM TEAM PRIMARY CARE PHYSICIAN Appointment [facility] [address] [place] [address] Tal Greenberg MD [facility] [address] [place] [address] Marielle Gaming, PATENT EXAMINER 11/07/2024 3:00 PM TEAM PRIMARY CARE PHYSICIAN Appointment [facility] [address] [place] [address] [place] [address] [place] [address] Tal Greenberg MD [facility] [address] [place] [address] 11/09/2024 1:45 PM TEAM PRIMARY CARE PHYSICIAN Appointment [facility] [address] [place] [address] Tal Greenberg MD 4804 [facility] [address] [place] [address] Marielle Gaming, PATENT EXAMINER 11/11/2024 1:45 PM TEAM PRIMARY CARE PHYSICIAN Appointment [facility] [address] [place] [address] Tal Greenberg MD 4804 [facility] [address] [place] [address] Marielle Gaming, PATENT EXAMINER 11/14/2024 1:45 PM TEAM PRIMARY CARE PHYSICIAN Appointment [facility] [address] [place] [address] Tal Greenberg MD [facility] [address] [place] [address] Marielle Gaming, PATENT EXAMINER 11/16/2024 1:45 PM TEAM PRIMARY CARE PHYSICIAN Appointment [facility] [address] [place] [address] Tal Greenberg MD [facility] [address] [place] [address] [place] [address] [place] [address] 11/18/2024 1:45 PM TEAM PRIMARY CARE PHYSICIAN Appointment [facility] [address] [place] [address] [place] [address] [place] [address] Tal Greenberg MD [facility] [address] [place] [address] 11/21/2024 1:00 PM TEAM PRIMARY CARE PHYSICIAN Appointment [facility] [address] [place] [address] [place] [address] [place] [address] Tal Greenberg MD 4804 [facility] [address] [place] [address] 11/23/2024 1:45 PM TEAM PRIMARY CARE PHYSICIAN Appointment [facility] [address] [place] [address] Tal Greenberg MD 4804 [facility] [address] [place] [address] Marielle Gaming PTA 11/25/2024 1:45 PM TEAM PRIMARY CARE PHYSICIAN Appointment [facility] [address] [place] [address] Tal Greenberg MD [facility] [address] [place] [address] Marielle Gaming PTA documented as of this encounter Visit Diagnoses Not on filedocumented in this encounter Additional Health Concerns Assessment Noted Time PHQ-9 Depression Total Score: 10 06/09/2 022 9:01 AM CDT documented as of this encounter Care Teams Mortgage Loan Originator Relationship Specialty [place] [address] [place] [address] PCP - General FAMILY PRACTICE 09/27/18 documented as of this encounter
--- OUTSIDE RECORDS SUMMARY | 2024-10-26 02:54 | XMS_ITS | Encounter Summary ---
Author Organization [facility] Address [address] [place] [address] Care Team Providers Care Industry Analyst Name Role Phone Zach Rhodes MD Primary Care Provider [phone] Encounter Details Date Type Department Care Team (Late Contact Info) Description 06/10/2023 COVEGAt Message Enc [facility] Family & Internal Medicine [facility] [address] [place] [address] [place] [address] [place] [address] Copay Social History Tobacco Use Types Packs/Day Years [...] (Late Contact Info) Description 10/31/2024 1:00 PM MIXER FOAM RUBBER Appointment [facility] [address] [place] [address] [place] [address] [place] [address] Tal Greenberg MD 4804 [facility] [address] [place] [address] 11/02/2024 1:45 PM MIXER FOAM RUBBER Appointment [facility] [address] [place] [address] Tal Greenberg MD 4804 [facility] [address] [place] [address] Marielle Gaming, YARDER OPERATOR 11/04/2024 1:45 PM MIXER FOAM RUBBER Appointment [facility] [address] [place] [address] Tal Greenberg MD [facility] [address] [place] [address] Marielle Gaming, YARDER OPERATOR 11/07/2024 3:00 PM MIXER FOAM RUBBER Appointment [facility] [address] [place] [address] [place] [address] [place] [address] Tal Greenberg MD 4804 [facility] [address] [place] [address] 11/09/2024 1:45 PM MIXER FOAM RUBBER Appointment [facility] [address] [place] [address] Tal Greenberg MD 4804 [facility] [address] [place] [address] Marielle Gaming, YARDER OPERATOR 11/11/2024 1:45 PM MIXER FOAM RUBBER Appointment [facility] [address] [place] [address] Tal Greenberg MD 4804 [facility] [address] [place] [address] Marielle Gaming, YARDER OPERATOR 11/14/2024 1:45 PM MIXER FOAM RUBBER Appointment [facility] [address] [place] [address] Tal Greenberg MD 4804 [facility] [address] [place] [address] Marielle Gaming, YARDER OPERATOR 11/16/2024 1:45 PM MIXER FOAM RUBBER Appointment [facility] [address] [place] [address] Tal Greenberg MD [facility] [address] [place] [address] [place] [address] [place] [address] 11/18/2024 1:45 PM MIXER FOAM RUBBER Appointment [facility] [address] [place] [address] [place] [address] [place] [address] Tal Greenberg MD 4804 [facility] [address] [place] [address] 11/21/2024 1:00 PM MIXER FOAM RUBBER Appointment [facility] [address] [place] [address] [place] [address] [place] [address] Tal Greenberg MD 4804 [facility] [address] [place] [address] 11/23/2024 1:45 PM MIXER FOAM RUBBER Appointment [facility] [address] [place] [address] Tal Greenberg MD 4804 [facility] [address] [place] [address] Marielle Gaming PTA 11/25/2024 1:45 PM MIXER FOAM RUBBER Appointment [facility] [address] [place] [address] Tal Greenberg MD 4804 [facility] [address] [place] [address] Marielle Gaming PTA documented as of this encounter Visit Diagnoses Not on filedocumented in this encounter Additional Health Concerns Assessment Noted Time PHQ-9 Depression Total Score: 10 06/09/ 022 9:01 AM CDT documented as of this encounter Care Teams Industry Analyst Relationship Specialty [place] [address] [place] [address] PCP - General FAMILY PRACTICE 09/27/18 documented as of this encounter
--- OUTSIDE RECORDS SUMMARY | 2024-10-26 02:54 | XMS_ITS | Encounter Summary ---
Author Organization [facility] Address [address] [place] [address] Care Team Providers Care Laborer Pipeline Name Role Phone Zach Rhodes MD Primary Care Provider [phone] Encounter Details Date Type Department Care Team (Late Contact Info) Description 08/01/2024 Stackifyhart Message Enc [facility] Medical Group Family & Internal Medicine [facility] [address] [place] [address] [place] [address] [place] [address] A1c Social History Tobacco Use Types Packs/Day Years [...] (Late Contact Info) Description 10/31/2024 1:00 PM FLAME CUTTING SUPERVISOR Appointment [facility]patient Rehab [address] [place] [address] [place] [address] [place] [address] Tal Greenberg MD 4804 [facility] [address] [place] [address] 11/02/2024 1:45 PM FLAME CUTTING SUPERVISOR Appointment [facility] [address] [place] [address] Tal Greenberg MD 4804 [facility] [address] [place] [address] Marielle Gaming, WATER TREATMENT SPECIALIST 11/04/2024 1:45 PM FLAME CUTTING SUPERVISOR Appointment [facility] [address] [place] [address] Tal Greenberg MD [facility]4 [facility] [address] [place] [address] Marielle Gaming, WATER TREATMENT SPECIALIST 11/07/2024 3:00 PM FLAME CUTTING SUPERVISOR Appointment [facility] [address] [place] [address] [place] [address] [place] [address] Tal Greenberg MD 4804 [facility] [address] [place] [address] 11/09/2024 1:45 PM FLAME CUTTING SUPERVISOR Appointment [facility] [address] [place] [address] Tal Greenberg MD 4804 [facility] [address] [place] [address] Marielle Gaming, WATER TREATMENT SPECIALIST 11/11/2024 1:45 PM FLAME CUTTING SUPERVISOR Appointment [facility] [address] [place] [address] Tal Greenberg MD 4804 [facility] [address] [place] [address] Marielle Gaming, WATER TREATMENT SPECIALIST 11/14/2024 1:45 PM FLAME CUTTING SUPERVISOR Appointment [facility] [address] [place] [address] Tal Greenberg MD 4804 [facility] [address] [place] [address] Marielle Gaming, WATER TREATMENT SPECIALIST 11/16/2024 1:45 PM FLAME CUTTING SUPERVISOR Appointment [facility] [address] [place] [address] Tal Greenberg MD [facility]4 [facility] [address] [place] [address] [place] [address] [place] [address] 11/18/2024 1:45 PM FLAME CUTTING SUPERVISOR Appointment [facility] [address] [place] [address] [place] [address] [place] [address] Tal Greenberg MD 4804 [facility] [address] [place] [address] 11/21/2024 1:00 PM FLAME CUTTING SUPERVISOR Appointment [facility] [address] [place] [address] [place] [address] [place] [address] Tal Greenberg MD 4804 [facility] [address] [place] [address] 11/23/2024 1:45 PM FLAME CUTTING SUPERVISOR Appointment [facility]hab [address] [place] [address] Tal Greenberg MD 4804 [facility] [address] [place] [address] Marielle Gaming PTA 11/25/2024 1:45 PM FLAME CUTTING SUPERVISOR Appointment [facility] [address] [place] [address] Tal Greenberg MD 4804 [facility] [address] [place] [address] Marielle Gaming PTA documented as of this encounter Visit Diagnoses Not on filedocumented in this encounter Additional Health Concerns Assessment Noted Time PHQ-9 Depression Total Score: 2 04/18/20 24 12:58 PM CDT documented as of this encounter Care Teams Laborer Pipeline Relationship Specialty [place] [address] [place] [address] PCP - General FAMILY PRACTICE 09/27/18 documented as of this encounter
--- OUTSIDE RECORDS SUMMARY | 2024-10-26 02:54 | XMS_ITS | Clinical Summary ---
Author Organization [facility] Address [address] [place] [address] Care Team Providers Care Orthopedic Nurse Name Role Phone Lupe Rhodes MD Primary Care Provider [phone] Allergies No known active allergies Medications triamcinolone acetonide (KENALOG) 10 MG/ML injection Active LORazepam (ATIVAN) 0.5 MG tabletIndications: Anxiety Take 1 tablet (0.5 mg total) by mouth every 8 (eight) hours as needed. FOR ANXIETY 30 tablet 2 Active diclofenac EC (VOLTAREN) 50 MG tabletIndications: Primary hypertension,Hirsu tism,Primary insomnia,Major depressive disorder in full remission, unspecified whether recurrent (CMS/HCC),Rosacea, Diabetes mellitus (CMS/HCC HHS/HCC),Migraine with aura and without status migrainosus, not intractable,Season al allergies,Chronic pain of right knee,Anxiety Take 1 tablet (50 mg total) by mouth 2 (two) times daily. 90 tablet 3 Active fluticasone propionate (FLONASE) 50 MCG/ACT nasal sprayIndications:S easonal allergies 1 spray by Each Nostril route 2 (two) times daily. shake liquid 48 g 1 3 Active cyclobenzaprine (FLEXERIL) 10 MG tabletIndications: Chronic pain of left knee TAKE 1 TABLET THREE TIMES A DAY 30 tablet 2 4 Active traMADol (ULTRAM) 50 MG tabletIndications: Acute Pain < 7 Day Supply Indications: Acute Pain < 7 Day Supply Take 1 tablet by mouth every 6 hours as needed for pain 28 tablet 4 Active amLODIPine (NORVASC) 5 MG tabletIndications: Primary hypertension Take 1 tablet (5 mg total) by mouth daily. 90 tablet 1 4 Active polyethylene glycol (GLYCOLAX) 17 GM/SCOOP powderIndications: Constipation, unspecified constipation type MIX 17 GRAMS IN 240MLS OF WATER AND DRINK ONCE DAILY 238 g 1 4 Active QUEtiapine (SEROQUEL) 25 MG tabletIndications: Primary insomnia,Major depressive disorder in full remission, unspecified whether recurrent ([facility]) TAKE 1 TABLET(25 MG) BY MOUTH EVERY NIGHT AT BEDTIME 90 tablet 1 4 Active spironolactone (ALDACTONE) 25 MG tabletIndications: Hirsutism TAKE 1 TABLET(25 MG) BY MOUTH DAILY 90 tablet 1 4 Active loratadine (CLARITIN) 10 MG tabletIndications: Seasonal allergies take 1 tablet by mouth daily 90 tablet 1 4 Active hydroCHLOROthiazid e (HYDRODIURIL) 25 MG tabletIndications: Primary hypertension TAKE 1 TABLET(25 MG) BY MOUTH EVERY MORNING 90 tablet 1 4 Active SUMAtriptan (IMITREX) 50 MG tabletIndications: Migraine with aura and without status migrainosus, not intractable TAKE 1 TABLET BY MOUTH AT ONSET. MAY REPEAT IN 2 HOURS. MAX OF 100 MG DAILY 9 tablet 2 4 Active Blood Glucose Monitoring Suppl (ONE TOUCH ULTRA 2) w/Device KitIndications:Citlaly betes mellitus ([facility]) USE TO CHECK BLOOD SUGAR TWICE A DAY 1 kit 4 Active Lancets (ExacasterTOUCH DELICA PLUS [id number]) MiscIndications:Di abetes mellitus ([facility]) 1 each by Other route 2 (two) times daily. Use to check blood sugar twice per day 100 each 6 4 Active metroNIDAZOLE (METROGEL) 0.75 % gelIndications:Ros acea apply topically to the affected area twice daily 45 g 6 4 Active Glucose Blood (ONETOUCH ULTRA) test stripIndications:D iabetes mellitus ([facility] HHS/[facility]) CHECK BLOOD SUGAR TWICE DAILY 200 strip 1 4 Active citalopram (CELEXA) 40 MG tabletIndications: Anxiety TAKE 1 TABLET BY MOUTH EVERY DAY 90 tablet 1 4 Active busPIRone (BUSPAR) 10 MG tabletIndications: Anxiety Take 1 tablet (10 mg total) by mouth 2 (two) times daily. 60 tablet 1 4 Active ondansetron (ZOFRAN-ODT) 8 MG disintegrating tabletIndications: Migraine with aura and without status migrainosus, not intractable DISSOLVE 1 TABLET(8 MG) ON THE TONGUE EVERY 8 HOURS NEEDED FOR NAUSEA 30 tablet 2 4 Active meloxicam (MOBIC) 7.5 MG tabletIndications: Primary osteoarthritis, unspecified site TAKE 1 TABLET(7.5 MG) BY MOUTH DAILY 90 tablet 1 4 Active Active Problems Problem Noted Date Diagnosed Date Pain in limb 06/09/2022 Primary hypertension 06/09/2022 Osteoarthrosis 12/25/2021 Arthralgia of right knee 11/21/2021 Osteoarthritis of right knee 11/21/2021 Constipation 02/23/2017 Muscle cramps at night 01/19/2017 Insomnia 11/03/2016 Hypertriglyceridemia 06/23/2016 Pre-diabetes 06/22/2015 Migraine 06/22/2015 Resolved Problems Problem Noted Date Diagnosed Date Resolved Date Morbid obesity ([facility]) 06/23/2016 09/09/2022 Diabetes mellitus ([facility]) 09/09/2022 Overview (10/17/2021): Pre- Diabetes Encounters Date Type Department Care Team Description 10/13/2024 Scan HEALTH INFO SRVCS Scanned, Doc [facility] Lab (SCAN) 09/07/2024 Telephone [facility] Family & Internal Medicine [address] [phone] Lupe Rhodes MD Question 09/07/2024 MyChart Message Enc [facility] Family & Internal Medicine [address] [phone] Lupe Rhodes MD Surgery 09/02/2024 2:15 PM ELECTRIC ORGAN CHECKER [facility] [address] [place] [phone] Jeff Bravo MD Consult; Abnormal EKG; Surgical Clearance 09/02/2024 Travel 08/11/2024 Scan boo-box SRVCS Scanned, Doc Med Group 08/09/2024 Orders Only [facility] Internal [address] [phone] Lupe Rhodes MD 08/09/2024 MyChart Message Enc [facility] Internal [address] [address] Lupe Rhodes MD Ekg 08/05/2024 Scan boo-box SRVCS Scanned, Doc [facility] Lab (SCAN); ECG (SCAN) 08/05/2024 Telephone [facility] Internal [address] [address] Lupe Rhodes MD Surgical Clearance 08/03/2024 8:20 AM ELECTRIC ORGAN CHECKER Allied Health/Nurse Visit [address] [address] Lupe Rhodes MD Imm/Inj (Flu vaccine) 08/03/2024 Travel 08/01/2024 MyChart Message Enc [address] [address] Lupe Rhodes MD A1c 07/29/2024 11:00 AM ELECTRIC ORGAN CHECKER Office Visit [address] [phone] Lupe Rhodes MD Surgical Clearance (Pre op knee surgery/) 07/29/2024 Travel from Last 3 Months Immunizations Name Administration Dates Next Due AFLURIA QUAD >36 MONTHS (MUL TI-DOSE VIAL) 07/20/2020 Fluzone (IIV3, Trivalent, 0. 5 ML Prefilled Syringe) 08/03/2024 Fluzone 6 Months+ Quad (0.5 mL Prefilled Syringe) 08/21/2023,08/05/2022,07/25/2019 Influenza Adult (Generic) 07/23/2018,01/2017,06/23/2016, 016,06/22/2015 Influenza Virus, Split 6-35 Mo 06/16/2014 MODERNA COVID-19 (12+) MRNA, LNP-S, PF, 100 MCG/ 0.5 ML DOSE 09/04/2021,11/29/2020,11/01/2020 Tdap (Adacel) 06/23/2016 Tdap (Generic) 06/23/2016 Family History Medical History Relation Comments Heart Father pacemaker Heart Disease Father Heart Attack Mother Heart Disease Mother Breast Cancer Sister Cancer Sister colon cancer Relation Status Comments Father Alive Mother Sister Alive Social History Tobacco Use Types Packs/Day Years Used Date Smoking Tobacco: Never Smokeless Tobacco: Never Tobacco Cessation:Counseling Given: No Comments:no hx tobacco Alcohol Use Standard Drinks/Week [...] file Not on file Not on file Last Filed Vital Signs Vital Sign Reading Time Taken Comments Blood Pressure 160/100 09/02/2024 2:30 PM ELECTRIC ORGAN CHECKER Pulse 84 09/02/2024 2:30 PM ELECTRIC ORGAN CHECKER Temperature 36.4 ??C (97.6 ??F) 07/29/2024 10:[address] Respiratory Rate 16 07/29/2024 10:55 AM ELECTRIC ORGAN CHECKER Oxygen Saturation 100% 07/29/2024 10:55 AM ELECTRIC ORGAN CHECKER Inhaled Oxygen Concentration - - Weight 95.3 kg (210 lb) 09/02/2024 2:30 PM ELECTRIC ORGAN CHECKER Height 160 cm (5' 3 ) 09/02/2024 2:30 PM ELECTRIC ORGAN CHECKER Body Mass Index 37.2 09/02/2024 2:30 PM ELECTRIC ORGAN CHECKER Plan of Treatment Upcoming Encounters Date Type Department Care Team (Late st Contact Info) Description 10/31/2024 1:00 PM ELECTRIC ORGAN CHECKER Appointment [facility] [address] [place] [address] [place] [address] [place] [address] Tal Greenberg MD [address] [place] [address] [address] [place] [address] 11/02/2024 1:45 PM ELECTRIC ORGAN CHECKER Appointment [facility] [address] [place] [address] Tal Greenberg MD [address] [place] [address] [address] [place] [address] Marielle Gaming, SIGN PAINTER APPRENTICE 11/04/2024 1:45 PM ELECTRIC ORGAN CHECKER Appointment [facility] [id number] [place] [address] Tal Greenberg MD [address] [place] [address] [address] [place] [address] Marielle Gaming, SIGN PAINTER APPRENTICE 11/07/2024 3:00 PM ELECTRIC ORGAN CHECKER Appointment [facility] [address] [place] [address] [place] [address] [place] [address] Tal Greenberg MD [address] [place] [address] [address] [place] [address] 11/09/2024 1:45 PM ELECTRIC ORGAN CHECKER Appointment [facility] [address] [place] [address] Tal Greenberg MD [address] [facility] [address] [place] [address] Marielle Gaming, SIGN PAINTER APPRENTICE 11/11/2024 1:45 PM ELECTRIC ORGAN CHECKER Appointment [facility] [address] [place] [address] Tal Greenberg MD [address] [facility] [address] [place] [address] Mraielle Gaming, SIGN PAINTER APPRENTICE 11/14/2024 1:45 PM ELECTRIC ORGAN CHECKER Appointment [facility] [address] [place] [address] Tal Greenberg MD [address] [facility] [address] [place] [address] Marielle Gaming, SIGN PAINTER APPRENTICE 11/16/2024 1:45 PM ELECTRIC ORGAN CHECKER Appointment [facility] [address] [place] [address] Tal Greenberg MD [address] [facility] [address] [place] [address] [place] [address] [place] [address] 11/18/2024 1:45 PM ELECTRIC ORGAN CHECKER Appointment [facility] [address] [place] [address] [place] [address] [place] [address] Tal Greenberg MD [address] [facility] [address] [place] [address] 11/21/2024 1:00 PM ELECTRIC ORGAN CHECKER Appointment [facility] [address] [place] [address] [place] [address] [place], [place] [id number] Tal Greenberg MD [address] [facility] [address] [place] [address] 11/23/2024 1:45 PM ELECTRIC ORGAN CHECKER Appointment [facility] [address] [place] [address] Tal Greenberg MD [address] [facility] [address] [place] [address] Marielle Gaming PTA 11/25/2024 1:45 PM ELECTRIC ORGAN CHECKER Appointment [facility] [address] [place] [address] Tal Greenberg MD [facility] [address] [place] [address] Marielle Gaming PTA Health Maintenance Due Date Last Done Comments Colorectal Cancer Screening Colonoscopy (10 Years) 1976 Kidney Health Evaluation 1976 Pneumococcal Vaccine: Pediatrics (0 to 5 Years) and At-Risk Patients (6 to 64 Years) (1 of 2 - PCV) 1982 Hepatitis C 1994 Hepatitis B Vaccines (1 of 3 - 19+ 3-dose series) 1995 Cervical Cancer Screening Pap with HPV Testing (Age 30 to 64) Every 5 Years 2006 Cervical Cancer Screening with HPV 2006 Diabetes: Retinopathy Eye Exam 11/09/2021 11/09/2019 Annual Physical 05/31/2022 05/31/2021 Mammogram Screening 06/06/2023 06/06/2021, 10/24/2019, 10/07/2018, Additional history exists Lipid Panel 06/09/2023 06/09/2022, 05/22, 09/27/2018, Additional history exists COVID-19 Vaccine ( season) 2024 09/08/2022, 09/04/2021, 11/29/2020, Additional history exists PHQ-2 (Physician [place]) 09/21/2024 04/18/2024 Hemoglobin A1C 01/26/2025 07/29/2024, 02/21, 12/08/2022, Additional history exists DTaP, Tdap and Td Vaccines (3 - Td or Tdap) 06/23/2026 06/23/2016, 06/23/2016 Cervical Cancer Screening Pap Smear (Age 30 to 64) Every 3 Years 06/09/2031 Postponed from 1976 (Awaiting Documentation) Influenza Adult Completed 08/03/2024, 09/2022, 08/05/2022, Additional history exists Meningococcal B Vaccine Aged Out No l onger eligible based on patient's age to complete this topic Meningococcal Vaccine Aged Out No ubaldo jojo eligible based on patient's age to complete this topic RSV Immunizations Under 20 Months Aged Out No longer eligible based on patient's age to complete this topic Procedures Procedure Name Priority Date/Time Associated Diagnosis Comments OUTSIDE LAB (SCAN ORDER) 10/13/2024 OUTSIDE LAB (SCAN ORDER) 10/13/2024 OUTSIDE LAB (SCAN ORDER) 10/13/2024 ECG GENERIC (SCAN ORDER) 08/05/2024 ECG GENERIC (SCAN ORDER) 08/05/2024 OUTSIDE LAB (SCAN ORDER) 08/05/2024 OUTSIDE LAB (SCAN ORDER) 08/05/2024 OUTSIDE LAB (SCAN ORDER) 08/05/2024 OUTSIDE LAB (SCAN ORDER) 08/05/2024 COLLECT.CAPILLARY (FNGR,HEEL,EAR) Routine 07/29/2024 10:55 AM ELECTRIC ORGAN CHECKER Type 2 diabetes mellitus without complication, with long-term current use of insulin ([facility]) HEMOGLOBIN, GLYCOSYLATED Routine 07/29/2024 Type 2 diabetes mellitus without complication, with long-term current use of insulin ([facility]) LIPID PANEL Routine 06/09/2022 9:16 AM CDT Hypertriglyceridemi a MG SCREENING W FLORECITA MJ DIGI Routine 06/06/2021 12:55 PM CDT Encounter for screening mammogram for breast cancer DILATED EYE EXAM (SCAN) Routine 11/09/2019 from Last 3 Months or Most Recently Relevant to Health Maintenance Results * OUTSIDE LAB (SCAN ORDER) (10/13/2024) Only the most recent of7 resultswithin the time period is included. 10/13/2024 [employer] [facility] Scanned SCANNING Final Resu lt * ECG GENERIC (SCAN ORDER) (08/05/2024) Only the most recent of2 resultswithin the time period is included. 08/05/2024 [employer] [facility] Scanned SCANNING Final Resu lt * HEMOGLOBIN, GLYCOSYLATED (07/29/2024) HGB A1C 5.4 % [id number] T [facility] 07/29/2024 Lupe Rhodes MD LABORATORY Final Resul t -[id number] [facility] [address] [place] [address], * (ABNORMAL) LIPID PANEL (06/09/2022 9:16 AM CDT) CHOLESTEROL 143 <200.0 MG/DL 06/09/2022 1:15 PM CDT [facility] TRIGLYCERIDES 122 <150 MG/DL 06/09/2022 1:15 PM CDT [facility] HDL 36(L) >40.0 MG/DL 06/09/2022 1:15 PM CDT [facility] LDL (CALCULATED) 83 <100 MG/DL 06/09/20 [facility] HDL CHOLESTEROL 107 <130 MG/DL 06/09 1:[address] [facility] CHOL/HDL RATIO 4.0 0.0 - 4.5 06/09/2022 1:[address] [facility] VLDL CALCULATION 24 5 - 55 MG/DL 06/09/2022 1:[address] [facility] LIPID INTERPRETATION 06/09/2022 1:15 PM T [facility] Comment: NIH CONCENSUS REPORT RECOMMENDATIONS: ?ADULT ?CHILD ??LOW RISK: ?CHOLESTEROL ? <200 ? <170 ?TRIGLYCERIDE ?<150 ?--- ?HDL ? >=60 ?--- ?LDL ? <100 ? <110 ??BORDERLINE: ?CHOLESTEROL ? 200-239 ?? 170-199 ?TRIGLYCERIDE ?150-199 ? --- ?HDL ?40-59 ?--- ?LDL ? 100-159 ?? 110-129 ??HIGH RISK: ?CHOLESTEROL ? >=240 ?>=200 ?TRIGLYCERIDE ?>=200 ? --- ?HDL ?<40 ?--- ?LDL ? >=160 ?>=130 06/09/2022 9:16 AM CDT us Lupe Rhodes MD LABORATORY Final Resul t Performing Organization Address City/State/[facility] Co de Phone Number [facility] [address] [place] [address], * MG SCREENING W FLORECITA MJ DIGI (06/06/2021 12:55 PM CDT) Anatomical Region Laterality Modality Breast Bilateral Mammography 06/06/2021 1:42 PM CDT Impressions 06/06/2021 1:47 PM CDT IMPRESSION: 1. No mammographic evidence of malignancy. 2. BI-RADS Category 2 - benign findings. Annual screening mammography recommended. MQSA BI-RADS Categories: Category 0 - needs additional imaging evaluation. Category 1 - negative. Category 2 - benign findings. Category 3 - probably benign findings, but short interval follow-up ?is recommended. Category 4 - suspicious abnormality and biopsy should be considered ?though the lesion may well be benign. Category 5 - highly suggestive of malignancy and appropriate action ?should be taken. ?? A) ??A negative report should not delay a biopsy if a dominant or ?clinically suspicious mass is present. B) ??Adenosis and dense breasts may obscure an underlying neoplasm. C) ??Study interpreted with computer aided detection. Referred By: LUPE RHODES Interpreted By: Yo Nguyen, 06/06/2021 1:42 PM Narrative 06/06/2021 1:47 PM CDT IMAGING STUDIES: Bilateral screening mammograms with computer-aided detection with 2-D and 3-D imaging. Tomosynthesis. DATE: 06/06/2021 12:29 PM HISTORY: screening for breast cancer ?? . ??Sr. Diagnosed breast carcinoma age 39. No current complaints. COMPARISON: ??10/07/2018. 10/24/2019 TISSUE TYPE: The breast tissue is almost entirely fatty. FINDINGS: 1. ??Bilateral screening mammograms with computer detection with ??2-D and 3-D imaging. Tomosynthesis. ??Fatty replaced ??fibroglandular tissue pattern is present. Similar minimal retroareolar fibroglandular tissue.. Few benign calcifications. 2. ??No malignant microcalfcifications, new dominant masses, or architectural distortion. Slightly asymmetric tissue in the lateral right retroareolar region is similar since more remote 2016 exam. 3. No skin thickening or nipple retraction. ??Axillary regions are within normal limits. us Lupe Rhodes MD MAMMO Final Resul t * DIABETIC RETINOPATHY EXAM (11/09/2019) us Documents Scanned SCANNING Edited Result - Final [facility] from Last 3 Months or Most Recently Relevant to Health Maintenance [facility] Care Teams Orthopedic Nurse Relationship Specialty [place] [address] [place] [address] PCP - General FAMILY PRACTICE 09/27/18
--- OUTSIDE RECORDS SUMMARY | 2024-10-26 02:54 | XMS_ITS | Encounter Summary ---
Author Organization [facility] Address [address] [place] [id number] Care Team Providers Care Crowning Hammer Operator Name Role Phone Zach Rhodes MD Primary Care Provider [phone] Encounter Details Date Type Department Care Team (Late st Contact Info) Description 10/12/2021 Manomasat Message Enc [facility] Family & Internal Medicine [facility] [id number] [place] [phone] [place] Spann [place] [id number] [place] [address]. [address] [place] [address] leave of absence paperwork Social History Tobacco Use Types Packs/Day Years [...] have Coronavirus / COVID-19? No / Unsure 10/03/2021 2:08 PM SLIPMAN documented as of this encounter Plan of Treatment Upcoming Encounters Date Type Department Care Team (Late st Contact Info) Description 10/31/2024 1:00 PM SLIPMAN Appointment [facility] [address] [place] [address] [place] [address] [place] [address] Tal Greenberg MD [facility] [address] [place] [address] 11/02/2024 1:45 PM SLIPMAN Appointment [facility] [address] [place] [address] Tal Greenberg MD [facility] [address] [place] [address] Marielle Gaming, LINK TRAINER TEACHER 11/04/2024 1:45 PM SLIPMAN Appointment [facility] [address] [place] [address] Tal Greenberg MD [facility] [address] [place] [address] Marielle Gaming, LINK TRAINER TEACHER 11/07/2024 3:00 PM SLIPMAN Appointment [facility] [address] [place] [address] [place] [address] [place] [address] Tal Greenberg MD [facility] [address] [place] [address] 11/09/2024 1:45 PM SLIPMAN Appointment [facility] [address] [place] [address] Tal Greenberg MD [address] [facility] [address] [place] [address] Marielle Gaming, LINK TRAINER TEACHER 11/11/2024 1:45 PM SLIPMAN Appointment [facility] [address] [place] [address] Tal Greenberg MD [address] [facility] [address] [place] [address] Marielle Gaming, LINK TRAINER TEACHER 11/14/2024 1:45 PM SLIPMAN Appointment [facility] [address] [place] [address] Tal Greenberg MD [address] [facility] [address] [place] [address] Marielle Gaming, LINK TRAINER TEACHER 11/16/2024 1:45 PM SLIPMAN Appointment [facility] [address] [place] [address] Tal Greenberg MD [address] [facility] [address] [place] [address] [place] [address] [place] [address] 11/18/2024 1:45 PM SLIPMAN Appointment [facility] [address] [place] [address] [place] [address] [place] [address] Tal Greenberg MD [address] [facility] [address] [place] [address] 11/21/2024 1:00 PM SLIPMAN Appointment [facility] [address] [place] [address] [place] [address] [place] [address] Tal Greenberg MD [address] [facility] [address] [place] [address] 11/23/2024 1:45 PM SLIPMAN Appointment [facility] [address] [place] [address] Tal Greenberg MD [address] [facility] [address] [place] [address] Marielle Gaming PTA 11/25/2024 1:45 PM SLIPMAN Appointment [facility] [address] [place] [address] Tal Greenberg MD [address] [facility] [address] [place] [address] Marielle Gaming PTA documented as of this encounter Visit Diagnoses Not on filedocumented in this encounter Additional Health Concerns Infection Onset Date Last Indicated Resolved Time COVID-19 Rule Out 09/09/2022 09/09/2022 09/09/2022 9:17 AM SLIPMAN Assessment Noted Time PHQ-9 Depression Total Score: 7 05/31/20 21 9:09 AM CDT documented as of this encounter Care Teams Crowning Hammer Operator Relationship Specialty [place] [address] [place] [address] PCP - General FAMILY PRACTICE 09/27/18 documented as of this encounter
--- OUTSIDE RECORDS SUMMARY | 2024-10-26 02:54 | XMS_ITS | Encounter Summary ---
Author Organization [facility] Address [address] [place] [address] Care Team Providers Care Manager Life Name Role Phone Zach Rhodes MD Primary Care Provider [phone] Encounter Details Date Type Department Care Team (Late st Contact Info) Description 10/21/2021 [employer] Techn[employer] Message Enc [facility] Medical Group Family & Internal Medicine [facility] [id number] [place] [phone] Zach Rhodes MD [id number] [place] [address] mri Social History Tobacco Use Types Packs/Day Years [...] have Coronavirus / COVID-19? No / Unsure 10/17/2021 1:53 PM DIAMOND SETTER documented as of this encounter Plan of Treatment Upcoming Encounters Date Type Department Care Team (Late st Contact Info) Description 10/31/2024 1:00 PM DIAMOND SETTER Appointment [facility] [address] [place] [address] [place] [address] [place] [address] Tal Greenberg MD [facility] [address] [place] [address] 11/02/2024 1:45 PM DIAMOND SETTER Appointment [facility] [address] [place] [address] Tal Greenberg MD [facility] [address] [place] [address] Marielle Gaming, AIR CARGO AGENT 11/04/2024 1:45 PM DIAMOND SETTER Appointment [facility] [id number] [place] [address] Tal Greenberg MD [address] [place] [address] [address] [place] [address] Marielle Gaming, AIR CARGO AGENT 11/07/2024 3:00 PM DIAMOND SETTER Appointment [facility] [address] [place] [address] [place] [address] [place] [address] Tal Greenberg MD [facility] [address] [place] [address] 11/09/2024 1:45 PM DIAMOND SETTER Appointment [facility] [address] [place] [address] Tal Greebnerg MD 4804 [facility] [address] [place] [address] Marielle Gaming, AIR CARGO AGENT 11/11/2024 1:45 PM DIAMOND SETTER Appointment [facility] [address] [place] [address] Tal Greenberg MD 4804 [facility] [address] [place] [address] Marielle Gaming, AIR CARGO AGENT 11/14/2024 1:45 PM DIAMOND SETTER Appointment [facility] [address] [place] [address] Tal Greenberg MD 4804 [facility] [address] [place] [address] Marielle Gaming, AIR CARGO AGENT 11/16/2024 1:45 PM DIAMOND SETTER Appointment [facility] [address] [place] [address] Tal Greenberg MD 4804 [facility] [address] [place] [address] [place] [address] [place] [address] 11/18/2024 1:45 PM DIAMOND SETTER Appointment [facility] [address] [place] [address] [place] [address] [place] [address] Tal Greenberg MD 4804 [facility] [address] [place] [address] 11/21/2024 1:00 PM DIAMOND SETTER Appointment [facility] [address] [place] [address] [place] [address] [place] [address] Tal Greenberg MD 4804 [facility] [address] [place] [address] 11/23/2024 1:45 PM DIAMOND SETTER Appointment [facility] [address] [place] [address] Tal Greenberg MD 4804 [facility] [address] [place] [address] Marielle Gaming PTA 11/25/2024 1:45 PM DIAMOND SETTER Appointment [facility] [address] [place] [address] Tal Greenberg MD [facility] [address] [place] [address] Marielle Gaming, CABRERA documented as of this encounter Visit Diagnoses Not on filedocumented in this encounter Additional Health Concerns Infection Onset Date Last Indicated Resolved Time COVID-19 Rule Out 09/09/2022 09/09/2022 09/09/2022 9:17 AM DIAMOND SETTER Assessment Noted Time PHQ-9 Depression Total Score: 7 05/31/20 21 9:09 AM CDT documented as of this encounter Care Teams Manager Life Relationship Specialty [place] [address] [place] [address] PCP - General FAMILY PRACTICE 09/27/18 documented as of this encounter
--- OUTSIDE RECORDS SUMMARY | 2024-10-26 02:54 | XMS_ITS | Encounter Summary ---
Author Organization [facility] Address [address] [place] [address] Care Team Providers Care Components Engineer Name Role Phone Zach Rhodes MD Primary Care Provider [phone] Encounter Details Date Type Department Care Team (Late st Contact Info) Description 01/10/2022 Le [employer] Picturest Message Enc [facility] Medical Group Family & Internal Medicine [facility] [address] [place] [address] Zach Rhodes [place] [id number] [place] [address] dodie adames medicine Social History Tobacco Use Types Packs/Day [...] st Contact Info) Description 10/31/2024 1:00 PM 1ST GRADE TEACHER Appointment [facility] [address] [place] [address] [place] [address] [place] [address] Tal Greenberg MD 4804 [facility] [address] [place] [address] 11/02/2024 1:45 PM 1ST GRADE TEACHER [facility]ointment [facility] [address] [place] [address] Tal Greenberg MD 4804 [facility] [address] [place] [address] Marielle Gaming, ACTIVITIES LEADER 11/04/2024 1:45 PM 1ST GRADE TEACHER Appointment [facility] [address] [place] [address] Tal Greenberg MD [facility] [address] [place] [address] Marielle Gaming, ACTIVITIES LEADER 11/07/2024 3:00 PM 1ST GRADE TEACHER Appointment [facility] [address] [place] [address] [place] [address] [place] [address] Tal Greenberg MD 4804 [facility] [address] [place] [address] 11/09/2024 1:45 PM 1ST GRADE TEACHER Appointment [facility] [address] [place] [address] Tal Greenberg MD 4804 [facility] [address] [place] [address] Marielle Gaming, ACTIVITIES LEADER 11/11/2024 1:45 PM 1ST GRADE TEACHER Appointment [facility] [address] [place] [address] Tal Greenberg MD 4804 [facility] [address] [place] [address] Marielle Gaming, ACTIVITIES LEADER 11/14/2024 1:45 PM 1ST GRADE TEACHER Appointment [facility] [address] [place] [address] Tal Greenberg MD 4804 [facility] [address] [place] [address] Marielle Gaming, ACTIVITIES LEADER 11/16/2024 1:45 PM 1ST GRADE TEACHER [facility]ointment [facility] [address] [place] [address] Tal Greenberg MD [facility] [address] [place] [address] [place] [address] [place], [place] [address] 11/18/2024 1:45 PM 1ST GRADE TEACHER [facility]ointment [facility] [address] [place] [address] [place] [address] [place] [address] Tal Greenberg MD 4804 [facility] [address] [place] [address] 11/21/2024 1:00 PM 1ST GRADE TEACHER [facility]ointment [facility] [address] [place] [address] [place] [address] [place] [address] Tal Greenebrg MD 4804 [facility] [address] [place] [address] 11/23/2024 1:45 PM 1ST GRADE TEACHER Appointment [facility] [address] [place] [address] Tal Greenberg MD 4804 [facility] [address] [place] [address] Marielle Gaming PTA 11/25/2024 1:45 PM 1ST GRADE TEACHER Appointment [facility] [address] [place] [address] Tal Greenberg MD 4804 [facility] [address] [place] [address] Marielle Gaming PTA documented as of this encounter Visit Diagnoses Not on filedocumented in this encounter Additional Health Concerns Infection Onset Date Last Indicated Resolved Time COVID-19 Rule Out 09/09/2022 09/09/2022 09/09/2022 9:17 AM 1ST GRADE TEACHER Assessment Noted Time PHQ-9 Depression Total Score: 7 05/31/20 21 9:09 AM CDT documented as of this encounter Care Teams Components Engineer Relationship Specialty [place] [address] [place] [address] PCP - General FAMILY PRACTICE 09/27/18 documented as of this encounter
--- OUTSIDE RECORDS SUMMARY | 2024-10-26 02:54 | XMS_ITS | Encounter Summary ---
Author Organization [facility] Address [address] [place] [address] Care Team Providers Care Coldfusion Name Role Phone Zach Rhodes MD Primary Care Provider [phone] Encounter Details Date Type Department Care Team (Late st Contact Info) Description 07/23/2021 Studio[employer]t Message Enc [facility] Medical Group Family & Internal Medicine [facility] [address] [place] [address] Zach Rhodes MD [id number] [place] [address] RE: Other Social History Tobacco Use [...] st Contact Info) Description 10/31/2024 1:00 PM SOURCING ENGINEER Appointment [facility] [address] [place] [address] [place] [address] [place] [address] Tal Greenberg MD [address] [place] [address] [address] [place] [address] 11/02/2024 1:45 PM SOURCING ENGINEER Appointment [facility] [address] [place] [address] Tal Greenberg MD [address] [place] [address] [address] [place] [address] Marielle Gaming, TRANSPORTATION PLANNING TECHNICIAN 11/04/2024 1:45 PM SOURCING ENGINEER Appointment [facility] [address] [place] [address] Tal Greenberg MD [address] [place] [address] [address] [place] [address] Marielle Gaming, TRANSPORTATION PLANNING TECHNICIAN 11/07/2024 3:00 PM SOURCING ENGINEER Appointment [facility] [address] [place] [address] [place] [address] [place] [address] Tal Greenberg MD [address] [place] [address] [address] [place] [address] 11/09/2024 1:45 PM SOURCING ENGINEER Appointment [facility] [address] [place] [address] Tal Greenberg MD 4804 [facility] [address] [place] [address] Marielle Gaming, TRANSPORTATION PLANNING TECHNICIAN 11/11/2024 1:45 PM SOURCING ENGINEER Appointment [facility] [address] [place] [address] Tal Greenberg MD 4804 [facility] [address] [place] [address] Marielle Gaming, TRANSPORTATION PLANNING TECHNICIAN 11/14/2024 1:45 PM SOURCING ENGINEER Appointment [facility] [address] [place] [address] Tal Greenberg MD 4804 [facility] [address] [place] [address] Marielle Gaming, TRANSPORTATION PLANNING TECHNICIAN 11/16/2024 1:45 PM SOURCING ENGINEER Appointment [facility] [address] [place] [address] Tal Greenberg MD [facility] [address] [place] [address] [place] [address] [place] [address] 11/18/2024 1:45 PM SOURCING ENGINEER Appointment [facility] [address] [place] [address] [place] [address] [place] [address] Tal Greenberg MD 4804 [facility] [address] [place] [address] 11/21/2024 1:00 PM SOURCING ENGINEER Appointment [facility] [address] [place] [address] [place] [address] [place] [address] Tal Greenberg MD 4804 [facility] [address] [place] [address] 11/23/2024 1:45 PM SOURCING ENGINEER [facility] [address] [place] [address] Tal Greenberg MD 4804 [facility] [address] [place] [address] Marielle Gaming PTA 11/25/2024 1:45 PM SOURCING ENGINEER [facility]ointment [facility] [address] [place] [address] Tal Greenberg MD 4804 [facility] [address] [place] [address] Marielle Gaming, CABRERA documented as of this encounter Visit Diagnoses Not on filedocumented in this encounter Additional Health Concerns Infection Onset Date Last Indicated Resolved Time COVID-19 Rule Out 09/09/2022 09/09/2022 09/09/2022 9:17 AM SOURCING ENGINEER Assessment Noted Time PHQ-9 Depression Total Score: 7 05/31/20 21 9:09 AM CDT documented as of this encounter Care Teams Coldfusion Relationship Specialty [place] [address] [place] [address] PCP - General FAMILY PRACTICE 09/27/18 documented as of this encounter
--- OUTSIDE RECORDS SUMMARY | 2024-10-26 02:54 | XMS_ITS | Encounter Summary ---
Author Organization [facility] Address [address] [place] [address] Care Team Providers Care Auction Assistant Name Role Phone Zach Rhodes MD Primary Care Provider [phone] Encounter Details Date Type Department Care Team (Late st Contact Info) Description 04/03/2023 Epunchitt Message Enc [facility] Medical Group Family & Internal Medicine [facility] [address] [place] [address] [place] [address] [place], [place] [id number] Foot doctor Social History Tobacco Use Types Packs/Day Years [...] st Contact Info) Description 10/31/2024 1:00 PM WHARF ATTENDANT Appointment [facility] [address] [place] [address] [place] [address] [place] [address] Tal Greenberg MD 4804 [facility] [address] [place] [address] 11/02/2024 1:45 PM WHARF ATTENDANT Appointment [facility] [address] [place] [address] Tal Greenberg MD 4804 [facility] [address] [place] [address] Mairelle Gaming, SOCIAL SECURITY ASSESSOR 11/04/2024 1:45 PM WHARF ATTENDANT Appointment [facility] [address] [place] [address] Tal Greenberg MD 4804 [facility] [address] [place] [address] Marielle Gaming, SOCIAL SECURITY ASSESSOR 11/07/2024 3:00 PM WHARF ATTENDANT Appointment [facility] [address] [place] [address] [place] [address] [place] [address] Tal Greenberg MD 4804 [facility] [address] [place] [address] 11/09/2024 1:45 PM WHARF ATTENDANT Appointment [facility] [address] [place] [address] Tal Greenberg MD 4804 [facility] [address] [place] [address] Marielle Gaming, SOCIAL SECURITY ASSESSOR 11/11/2024 1:45 PM WHARF ATTENDANT Appointment [facility] [address] [place] [address] Tal Greenberg MD 4804 [facility] [address] [place] [address] Marielle Gaming, SOCIAL SECURITY ASSESSOR 11/14/2024 1:45 PM WHARF ATTENDANT Appointment [facility] [address] [place] [address] Tal Greenberg MD 4804 [facility] [address] [place] [address] Marielle Gaming, SOCIAL SECURITY ASSESSOR 11/16/2024 1:45 PM WHARF ATTENDANT Appointment [facility] [address] [place] [address] Tal Greenberg MD [facility] [address] [place] [address] [place] [address] [place], [place] [address] 11/18/2024 1:45 PM WHARF ATTENDANT Appointment [facility] [address] [place] [address] [place] [address] [place] [address] Tal Greenberg MD 4804 [facility] [address] [place] [address] 11/21/2024 1:00 PM WHARF ATTENDANT Appointment [facility] [address] [place] [address] [place] [address] [place] [address] Tal Greenberg MD 4804 [facility] [address] [place] [address] 11/23/2024 1:45 PM WHARF ATTENDANT Appointment [facility] [address] [place] [address] Tal Greenberg MD 4804 [facility] [address] [place] [address] Marielle Gaming PTA 11/25/2024 1:45 PM WHARF ATTENDANT Appointment [facility] [address] [place] [address] Tal Greenberg MD 4804 [facility] [address] [place] [address] Marielle Gaming PTA documented as of this encounter Visit Diagnoses Not on filedocumented in this encounter Additional Health Concerns Assessment Noted Time PHQ-9 Depression Total Score: 10 022 9:01 AM CDT documented as of this encounter Care Teams Auction Assistant Relationship Specialty [place] [address] [place] [address] PCP - General FAMILY PRACTICE 09/27/18 documented as of this encounter
--- OUTSIDE RECORDS SUMMARY | 2024-10-26 02:54 | XMS_ITS | Encounter Summary ---
Author Organization [facility] Address [address] [place] [address] Care Team Providers Care Shuttle Inspector Name Role Phone Zach Rhodes MD Primary Care Provider [phone] Encounter Details Date Type Department Care Team (Late st Contact Info) Description 12/02/2021 [employer] Message Enc [facility] Medical Group Family & Internal Medicine [facility] [address] [place] [address] Zach Rhodes [place] [id number] [place] [address] medication refill Social History Tobacco Use Types Packs/Day Years [...] suspected to have Coronavirus/COVID-19? No / Unsure 12/04/2021 3:07 PM CDT documented as of this encounter Plan of Treatment Upcoming Encounters Date Type Department Care Team (Late st Contact Info) Description 10/31/2024 1:00 PM AGRICULTURAL RESEARCH TECHNOLOGIST Appointment [facility] [address] [place] [address] [place] [address] [place] [address] Tal Greenberg MD [facility] [address] [place] [address] 11/02/2024 1:45 PM AGRICULTURAL RESEARCH TECHNOLOGIST Appointment [facility] [address] [place] [address] Tal Greenberg MD [facility] [address] [place] [address] Marielle Gaming, SKIVER WELT END 11/04/2024 1:45 PM AGRICULTURAL RESEARCH TECHNOLOGIST Appointment [facility] [address] [place] [address] Tal Greenberg MD [address] [place] [address] [address] [place] [address] Marielle Gaming, SKIVER WELT END 11/07/2024 3:00 PM AGRICULTURAL RESEARCH TECHNOLOGIST Appointment [facility] [address] [place] [address] [place] [address] [place] [address] Tal Greenberg MD [address] [place] [address] [address] [place] [address] 11/09/2024 1:45 PM AGRICULTURAL RESEARCH TECHNOLOGIST Appointment [facility] [address] [place] [address] Tal Greenberg MD 4804 [facility] [address] [place] [address] Marielle Gaming, SKIVER WELT END 11/11/2024 1:45 PM AGRICULTURAL RESEARCH TECHNOLOGIST Appointment [facility] [address] [place] [address] Tal Greenberg MD 4804 [facility] [address] [place] [address] Marielle Gaming, SKIVER WELT END 11/14/2024 1:45 PM AGRICULTURAL RESEARCH TECHNOLOGIST Appointment [facility] [address] [place] [address] Tal Greenberg MD 4804 [facility] [address] [place] [address] Marielle Gaming, SKIVER WELT END 11/16/2024 1:45 PM AGRICULTURAL RESEARCH TECHNOLOGIST Appointment [facility] [address] [place] [address] Tal Greenberg MD 4804 [facility] [address] [place] [address] [place] [address] [place] [id number] 11/18/2024 1:45 PM AGRICULTURAL RESEARCH TECHNOLOGIST Appointment [facility] [address] [place] [address] [place] [address] [place] [address] Tal Greenberg MD 4804 [facility] [address] [place] [address] 11/21/2024 1:00 PM AGRICULTURAL RESEARCH TECHNOLOGIST Appointment [facility] [address] [place] [address] [place] [address] [place] [address] Tal Greenberg MD 4804 [facility] [address] [place] [address] 11/23/2024 1:45 PM AGRICULTURAL RESEARCH TECHNOLOGIST Appointment [facility] [address] [place] [address] Tal Greenberg MD 4804 [facility] [address] [place] [address] Marielle Gaming PTA 11/25/2024 1:45 PM AGRICULTURAL RESEARCH TECHNOLOGIST Appointment [facility] [address] [place] [address] Tal Greenberg MD 4804 [facility] [address] [place] [address] Marielle Gaming PTA documented as of this encounter Visit Diagnoses Not on filedocumented in this encounter Additional Health Concerns Infection Onset Date Last Indicated Resolved Time COVID-19 Rule Out 09/09/2022 09/09/2022 09/09/2022 9:17 AM AGRICULTURAL RESEARCH TECHNOLOGIST Assessment Noted Time PHQ-9 Depression Total Score: 7 05/31/20 21 9:09 AM CDT documented as of this encounter Care Teams Shuttle Inspector Relationship Specialty [place] [address] [place] [address] PCP - General FAMILY PRACTICE 09/27/18 documented as of this encounter
--- OUTSIDE RECORDS SUMMARY | 2024-10-26 02:54 | XMS_ITS | Encounter Summary ---
Author Organization [facility] Address [address] [place] [address] Care Team Providers Care Tank Worker Name Role Phone Zach Rhodes MD Primary Care Provider [phone] Encounter Details Date Type Department Care Team (Late Contact Info) Description 08/09/2024 Orca Systemst Message Enc [facility] Medical Group Family & Internal Medicine [facility] [address] [place] [address] [place] [address] [place] [address] Ekg Social History Tobacco Use Types Packs/Day Years [...] (Late Contact Info) Description 10/31/2024 1:00 PM TOUCH UP CARVER Appointment [facility] [address] [place] [address] [place] [address] [place] [address] Tal Greenberg MD 4804 [facility] [address] [place] [address] 11/02/2024 1:45 PM TOUCH UP CARVER Appointment [facility] [address] [place] [address] Tal Greenberg MD 4804 [facility] [address] [place] [address] Marielle Gaming, FISHERY DIVISION CHIEF 11/04/2024 1:45 PM TOUCH UP CARVER Appointment [facility] [address] [place] [address] Tal Greenberg MD [facility] [address] [place] [address] Marielle Gaming, FISHERY DIVISION CHIEF 11/07/2024 3:00 PM TOUCH UP CARVER Appointment [facility] [address] [place] [address] [place] [address] [place] [address] Tal Greenberg MD [facility] [address] [place] [address] 11/09/2024 1:45 PM TOUCH UP CARVER Appointment [facility] [address] [place] [address] Tal Greenberg MD 4804 [facility] [address] [place] [address] Marielle Gaming, FISHERY DIVISION CHIEF 11/11/2024 1:45 PM TOUCH UP CARVER Appointment [facility] [address] [place] [address] Tal Greenberg MD 4804 [facility] [address] [place] [address] Marielle Gaming, FISHERY DIVISION CHIEF 11/14/2024 1:45 PM TOUCH UP CARVER Appointment [facility] [address] [place] [address] Tal Greenberg MD 4804 [facility] [address] [place] [address] Marielle Gaming, FISHERY DIVISION CHIEF 11/16/2024 1:45 PM TOUCH UP CARVER Appointment [facility] [address] [place] [address] Tal Greenberg MD [facility] [address] [place] [address] [place] [address] [place] [address] 11/18/2024 1:45 PM TOUCH UP CARVER Appointment [facility] [address] [place] [address] [place] [address] [place] [address] Tal Greenberg MD 4804 [facility] [address] [place] [address] 11/21/2024 1:00 PM TOUCH UP CARVER Appointment [facility] [address] [place] [address] [place] [address] [place] [address] Tal Greenberg MD 4804 [facility] [address] [place] [address] 11/23/2024 1:45 PM TOUCH UP CARVER Appointment [facility] [address] [place] [address] Tal Greenberg MD 4804 [facility] [address] [place] [address] Marielle Gaming PTA 11/25/2024 1:45 PM TOUCH UP CARVER Appointment [facility] [address] [place], [place] [id number] Tal Greenberg MD 4804 [facility] [address] [place] [address] Marielle Gaming PTA documented as of this encounter Visit Diagnoses Not on filedocumented in this encounter Additional Health Concerns Assessment Noted Time PHQ-9 Depression Total Score: 2 04/18/20 24 12:58 PM CDT documented as of this encounter Care Teams Tank Worker Relationship Specialty [place] [address] [place] [address] PCP - General FAMILY PRACTICE 09/27/18 documented as of this encounter
--- OUTSIDE RECORDS SUMMARY | 2024-10-26 02:54 | XMS_ITS | Encounter Summary ---
Author Organization [facility] Address [address] [place] [address] Care Team Providers Care Vp Treasurer Name Role Phone Zach Rhodes MD Primary Care Provider [phone] Encounter Details Date Type Department Care Team (Late st Contact Info) Description 04/26/2023 VisualSharet Message Enc [facility] Medical Group Family & Internal Medicine [facility] [address] [place] [address] Zach Rhodes MD [id number] [place] [address] Note Social History Tobacco Use Types [...] as of this encounter Progress Notes * Esme Reynaga MA - 04/27/2023 10:00 AM CDT Printed for Dr. Rhodes to review. documented in this encounter Plan of Treatment Upcoming Encounters Date Type Department Care Team (Late st Contact Info) Description 10/31/2024 1:00 PM CABLE RESPOOLER Appointment [facility] [address] [place] [address] [place] [address] [place] [address] Tal Greenberg MD [facility] [address] [place] [address] 11/02/2024 1:45 PM CABLE RESPOOLER Appointment [facility] [address] [place] [address] Tal Greenberg MD [facility] [address] [place] [address] Marielle Gaming, PIANO TECHNICIAN 11/04/2024 1:45 PM CABLE RESPOOLER Appointment [facility] [address] [place] [address] Tal Greenberg MD 4804 [facility] [address] [place] [address] Marielle Gaming, CABRERA 11/07/2024 3:00 PM CABLE RESPOOLER Appointment [facility] [address] [place] [address] [place] [address] [place] [address] Tal Greenberg MD [facility] [address] [place] [address] 11/09/2024 1:45 PM CABLE RESPOOLER Appointment [facility] [address] [place] [address] Tal Greenberg MD 4804 [facility] [address] [place] [address] Marielle Gaming, PIANO TECHNICIAN 11/11/2024 1:45 PM CABLE RESPOOLER Appointment [facility] [address] [place] [address] Tal Greenberg MD 4804 [facility] [address] [place] [address] Marielle Gaming, PIANO TECHNICIAN 11/14/2024 1:45 PM CABLE RESPOOLER Appointment [facility] [address] [place] [address] Tal Greenberg MD [facility] [address] [place] [address] Marielle Gaming, PIANO TECHNICIAN 11/16/2024 1:45 PM CABLE RESPOOLER Appointment [facility] [address] [place] [address] Tal Greenberg MD [facility] [address] [place] [address] [place] [address] [place] [address] 11/18/2024 1:45 PM CABLE RESPOOLER Appointment [facility] [address] [place] [address] [place] [address] [place] [address] Tal Greenberg MD 4804 [facility] [address] [place] [address] 11/21/2024 1:00 PM CABLE RESPOOLER Appointment [facility]hab [address] [place] [address] [place] [address] [place] [address] Tal Greenberg MD [facility] [address] [place] [address] 11/23/2024 1:45 PM CABLE RESPOOLER Appointment [facility] [address] [place] [address] Tal Greenberg MD 4804 [facility] [address] [place] [address] Marielle Gaming PTA 11/25/2024 1:45 PM CABLE RESPOOLER Appointment [facility] [address] [place] [address] Tal Greenberg MD 4804 [facility] [address] [place] [address] Marielle Gaming PTA documented as of this encounter Visit Diagnoses Not on filedocumented in this encounter Additional Health Concerns Assessment Noted Time PHQ-9 Depression Total Score: 10 06/09/ 022 9:01 AM CDT documented as of this encounter Care Teams Vp Treasurer Relationship Specialty [place] [address] [place] [address] PCP - General FAMILY PRACTICE 09/27/18 documented as of this encounter
--- OUTSIDE RECORDS SUMMARY | 2024-10-26 02:54 | XMS_ITS | Encounter Summary ---
Author Organization [facility] Address [address] [place] [address] Care Team Providers Care Utility Bag Assembler Name Role Phone Zach Rhodes MD Primary Care Provider [phone] Encounter Details Date Type Department Care Team (Late st Contact Info) Description 12/26/2022 Cava Grillt Message Enc [facility] Medical Group Family & Internal Medicine [facility] [address] [place] [address] [place] [address] [place] [address] For dodie adames Social History Tobacco Use Types Packs/Day Years [...] st Contact Info) Description 10/31/2024 1:00 PM INTERNATIONAL ACCOUNT EXECUTIVE Appointment [facility] [address] [place] [address] [place] [address] [place] [address] Tal Greenberg MD [facility] [address] [place] [address] 11/02/2024 1:45 PM INTERNATIONAL ACCOUNT EXECUTIVE Appointment [facility] [address] [place] [address] Tal Greenberg MD [facility] [address] [place] [address] Marielle Gaming, LANDSCAPING SUPERVISOR 11/04/2024 1:45 PM INTERNATIONAL ACCOUNT EXECUTIVE Appointment [facility] [address] [place] [address] Tal Greenberg MD [facility] [address] [place] [address] Marielle Gaming, LANDSCAPING SUPERVISOR 11/07/2024 3:00 PM INTERNATIONAL ACCOUNT EXECUTIVE Appointment [facility] [address] [place] [address] [place] [address] [place] [address] Tal Greenberg MD [facility] [address] [place] [address] 11/09/2024 1:45 PM INTERNATIONAL ACCOUNT EXECUTIVE Appointment [facility] [address] [place] [address] Tal Greenberg MD 4804 [facility] [address] [place] [address] Marielle Gaming, LANDSCAPING SUPERVISOR 11/11/2024 1:45 PM INTERNATIONAL ACCOUNT EXECUTIVE Appointment [facility] [address] [place] [address] Tal Greenberg MD 4804 [facility] [address] [place] [address] Marielle Gaming, LANDSCAPING SUPERVISOR 11/14/2024 1:45 PM INTERNATIONAL ACCOUNT EXECUTIVE Appointment [facility] [address] [place] [address] Tal Greenberg MD [facility] [address] [place] [address] Marielle Gaming, LANDSCAPING SUPERVISOR 11/16/2024 1:45 PM INTERNATIONAL ACCOUNT EXECUTIVE Appointment [facility] [address] [place] [address] Tal Greenberg MD [facility] [address] [place] [address] [place] [address] [place] [address] 11/18/2024 1:45 PM INTERNATIONAL ACCOUNT EXECUTIVE Appointment [facility] [address] [place] [address] [place] [address] [place] [address] Tal Greenberg MD 4804 [facility] [address] [place] [address] 11/21/2024 1:00 PM INTERNATIONAL ACCOUNT EXECUTIVE Appointment [facility] [address] [place] [address] [place] [address] [place] [address] Tal Greenberg MD 4804 [facility] [address] [place] [address] 11/23/2024 1:45 PM INTERNATIONAL ACCOUNT EXECUTIVE Appointment [facility] [address] [place] [address] Tal Greenberg MD 4804 [facility] [address] [place] [address] Marielle Gaming PTA 11/25/2024 1:45 PM INTERNATIONAL ACCOUNT EXECUTIVE Appointment [facility] [address] [place] [address] Tal Greenberg MD 4804 [facility] [address] [place] [address] Marielle Gaming, CABRERA documented as of this encounter Visit Diagnoses Not on filedocumented in this encounter Additional Health Concerns Assessment Noted Time PHQ-9 Depression Total Score: 10 06/09/ 022 9:01 AM CDT documented as of this encounter Care Teams Utility Bag Assembler Relationship Specialty [place] [address] [place] [address] PCP - General FAMILY PRACTICE 09/27/18 documented as of this encounter
--- OUTSIDE RECORDS SUMMARY | 2024-10-26 02:54 | XMS_ITS | Encounter Summary ---
Author Organization [facility] Address [address] [place] [address] Care Team Providers Care Civil Service Worker Name Role Phone Zach Rhodes MD Primary Care Provider [phone] Encounter Details Date Type Department Care Team (Late st Contact Info) Description 04/27/2023 [employer] Message Enc [facility] Medical Group Family & Internal Medicine [facility] [address] [place] [address] [place] [id number] [place] [address] Pre approval Social History Tobacco Use Types Packs/Day Years [...] Notes * Esme Reynaga MA - 04/27/2023 11:35 AM CDT Spoke with Hussain and she states she no longer needs the Prior Auth. documented in this encounter Plan of Treatment Upcoming Encounters Date Type Department Care Team (Late st Contact Info) Description 10/31/2024 1:00 PM PUNCH PRESS OPERATOR Appointment [facility]patient [facility]hab [address] [place] [address] [place] [address] [place] [address] Tal Greenberg MD [facility] [address] [place] [address] 11/02/2024 1:45 PM PUNCH PRESS OPERATOR Appointment [facility]hab [address] [place] [address] Tal Greenberg MD [facility] [address] [place] [address] Marielle Gaming, CABRERA 11/04/2024 1:45 PM PUNCH PRESS OPERATOR Appointment [facility]hab [address] [place] [address] Tal Greenberg MD [facility] [address] [place] [address] Marielle Gaming, SEISMOGRAPHER 11/07/2024 3:00 PM PUNCH PRESS OPERATOR Appointment [facility]hab [address] [place] [address] [place] [address] [place] [address] Tal Greenberg MD [facility] [address] [place] [address] 11/09/2024 1:45 PM PUNCH PRESS OPERATOR Appointment [facility] [address] [place] [address] Tal Greenberg MD 4804 [facility] [address] [place] [address] Marielle Gaming, SEISMOGRAPHER 11/11/2024 1:45 PM PUNCH PRESS OPERATOR Appointment [facility] [address] [place] [address] Tal Greenberg MD 4804 [facility] [address] [place] [address] Marielle Gaming, SEISMOGRAPHER 11/14/2024 1:45 PM PUNCH PRESS OPERATOR Appointment [facility] [address] [place] [address] Tal Greenberg MD [facility] [address] [place] [address] Marielle Gaming, SEISMOGRAPHER 11/16/2024 1:45 PM PUNCH PRESS OPERATOR Appointment [facility] [address] [place] [address] Tal Greenberg MD [facility] [address] [place] [address] [place] [address] [place] [address] 11/18/2024 1:45 PM PUNCH PRESS OPERATOR Appointment [facility] [address] [place] [address] [place] [address] [place] [address] Tal Greenberg MD [facility] [address] [place] [address] 11/21/2024 1:00 PM PUNCH PRESS OPERATOR Appointment [facility] [address] [place] [address] [place] [address] [place] [address] Tal Greenberg MD [facility] [address] [place] [address] 11/23/2024 1:45 PM PUNCH PRESS OPERATOR Appointment [facility] [address] [place] [address] Tal Greenberg MD [facility] [address] [place] [address] Marielle Gaming PTA 11/25/2024 1:45 PM PUNCH PRESS OPERATOR Appointment [facility] [address] [place] [address] Tal Greenberg MD [facility] [address] [place] [address] Marielle Gaming PTA documented as of this encounter Visit Diagnoses Not on filedocumented in this encounter Additional Health Concerns Assessment Noted Time PHQ-9 Depression Total Score: 10 022 9:01 AM CDT documented as of this encounter Care Teams Civil Service Worker Relationship Specialty [place] [address] [place] [address] PCP - General FAMILY PRACTICE 09/27/18 documented as of this encounter
--- OUTSIDE RECORDS SUMMARY | 2024-10-26 02:54 | XMS_ITS | Data Portability ---
Author Organization [place] [facility], Main Office Address [address] [place] [address] Care Team Providers Care Cut Off Man Name Role Phone LUPE RHODES Primary Care Provider LUPE RHODES Referring Provider [phone] Assessment Encounter Date Assessment Date Assessment LastModified by Organization Details LastModified Time 11/28/2022 11/28/2022 patient returns. We last saw her 6 weeks ago. She has severe medial compartment osteoarthritis the right knee.X-rays and MRI were thoroughly reviewed with the patient and the pathology explained. She continues to work and works with restrictions. She has been taking the diclofenac 50 mg twice daily it would we prescribed 6 weeks ago. She has noticed no side effects and feels he tolerates it well and she feels it has been definitely helping her knee. She would like to continue with that. We will check a CBC and CMP and in 6 weeks to look for side effects. She has been trying to lose weight. She has been limiting her carbs to 50 g per day and eating salads but despite this she has gained 6 lb over last 6 weeks. She is 214 lb today. She is 208 lb 6 weeks ago her BMI is 39.1. Her friend Eugene was on the phone on speaker phone throughout the discussion. Her most important goal at this point has to be to lose weight. She is bordering on extreme obesity and she is only 47 years old and knee replacement is likely to fail. Her risk of failure is probably in the highest category of patients undergoing knee replacement. She is active small in stature and obese. And young. We had a long discussion about weight loss strategies. She understands the concept of counting calories and will pursue that. She is familiar with the [employer] website and will utilize as a resource. She has a digital food scale at home. She has a regular standing scale that she received free from [employer]. Yani has tested that and stepping on it stepping off a stepping on again showed a 10 lb difference between the 2 checks so the scale is unreliable and should be discarded and a new scale should be obtained so she can monitor her weight on a daily basis and keep track her progress. Finally, I have recommended that she consider seeing a dietitian for counseling on strategies to lose weight. She is going to redouble her efforts. She asked about a calorie count she should try and order lose weight and it might be reasonable to try a 15 calorie per day diet for a week and see if this affects her weight. Ideally she would have a daily calorie count that would lead to a weight loss of 1.5 lb per week on a consistent basis. Is it is somewhat surprising that her efforts to significantly reduce her daily caloric intake have resulted in a 6 lb weight gain in 6 weeks. Perhaps the dietitian can dig deeper into the patient's specific food choices and quantities to solve this problem. I will see her back in 3 months assess her progress we will check her weight at that time. I explained that she will need to have had the blood work before we can: Refill of the diclofenac. 30 minutes were spent in total care this patient more than half the time spent in [id number] care. Not available 11/28/2022 12:52:21 02/27/2023 02/27/2023 Patient returns for follow-up of right knee. She has been taking 50 mg twice daily. She has done very well with this. Her height and weight today is unchanged 214 lb BMI of 39 point. She has severe osteoarthritis of her right knee and we are advising her to lose weight before knee replacement as she is very high risk for early failure of knee replacement being very young and bordering on extremely obese. She states she has been using a 1000 kilocalorie diet and has a digital scale and she is working and active therefore spends much of her time standing. She had BMP February 11 which showed a creatinine elevated to 1.11. Have discussed with her that if she has renal insufficiency, nonsteroidal anti-inflammatory medications may not be the best option for her as these can exacerbate kidney failure. She is concerned that she may have formal problem. She has problems with swelling in her ankles she has hair on her face and and acne versus rosacea raising the possibility that she may Abil[place]'s disease. She does not have stretch springer however. I have discussed with her that she should raise these concerns with her primary care physician Dr. Rhodes. She would like a work note stating no still waiting or puffing. 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 Otherwise her knee is doing so well she would like to postpone cortisone injection at this time. I recommended obtaining a new BMP and if this remains elevated think she will need to see a renal specialist and stop the diclofenac. 20 minutes were spent total care this patient more than half the time spent in svem-nn-[id number] care. I will see her back in 3 months to assess her progress. She is going to work harder on weight loss. Not available 03/11/2023 07:57:43 05/29/2023 05/29/2023 HPI: Patient returns. She is here for re-evaluation of her right knee osteoarthritis. She did get the BMP done after we saw her last time 6 weeks ago. Her creatinine actually completely normalized .86. She has changed her diet and has been working on weight loss. She has been seeing a dietitian. Her weight is down to 210 lb today so she has lost 4 lb since we saw her last. She has been on work restrictions and these have also helped. At this point she is having no symptoms in the knee and is very happy with the way the knee feels. She is having no pain. She remains taking the diclofenac 50 mg twice a day as feels has done well for her. She declined having a cortisone injection today. She would like to continue with the work restrictions and we will make these permanent since they are helping her with her symptoms. She is going to continue with the weight loss. I talked with her that we will get blood work in 6 months if she remains on the diclofenac. She can always have a cortisone injection in the future if she has a flare-up and she will keep that in mind. This point we will see her back as needed. [email or web address] Not available 05/29/2023 12:18:23 Plan of Treatment Reminders Order Date Submit Date Provider Last Modified By Organization Details Last Modified Time Details Appointments None recorded. Lab BMP, serum or plasma - fax results to [phone] 2022 023 ABHINAV Not available 3 11:37:52 Referral None recorded. Procedures None recorded. Surgeries None recorded. Imaging None recorded. Medication Orders diclofenac sodium 75 mg tablet,kevin fuentesd release 2022 023 [email or web address] [id number], [address] [place], [place], [id number], 19:57:10 Patient TargetsNo targets recorded. Patient InstructionsNo instructions recorded. Reason for Referral None Reported. Results Created Date Observation Date Name Description Value Unit Range Abnormal Flag Note LastModifiedBy Organization Detail LastModifiedTime 10/17/19 23 XR, knee No observ ation record ed. [id number] [id number] [address], [place], [address], 11/19/2022 17:13:45 Result Notes None recorded. Problems Name Problem SNOMED Code Status Onset Date Resolution Date Notes Provider Name and Address Organization Details Recorded Time Current tear of medial cartilage AND/OR meniscus of knee Active Not Available [facility] 3 17:12:58 Osteoarthr itis of right knee joint 4698375272756 00 Active 2021 Not Available [facility] 3 17:12:58 Osteoarthr itis 209635789 Active 2021 Not Available [facility] 3 17:12:58 Pain of right knee joint 5548024212019 00 Active 2021 Not Available [facility] 3 17:12:58 Pain in limb 74062575 Active Not Available [facility] 3 17:12:58 extermination inspector current use of non-steroi nazia anti-infla mmatory drug 7854198052689 03 Active 2022 Roxana Peña, REBEL null, [place] [facility] [place] [employer] [facility] 3 13:26:21 Problem Notes None recorded. Procedures Surgical History None recorded. Imaging Results Imaging Date Name Status LastModified by Organiz ation Details LastModified Time 10/17/2022 XR, knee completed [id number] [facility] [place] [address], [place], [address], 11/19/2022 17:13:45 Procedure Notes None recorded. Medical Equipment None Reported. Allergies No known drug allergies Medications Name Sig Start Date Stop Date Status Note LastModified by Organization Details LastModified Time quetiapine 25 mg tablet active Not Available Not Available Not Available cyclobenzap rine 10 mg tablet TAKE 1 TABLET BY MOUTH THREE TIMES DAILY NEEDED active Not Available Not Available No t Available metformin 500 mg tablet TAKE 1 TABLET BY MOUTH EVERY DAY 07/04 completed Not Available Not Available Not Available prednisone 10 mg tablet 12/25 completed Not Available Not Available Not Available nabumetone 750 mg tablet TAKE 1 TABLET BY MOUTH EVERY 12 HOURS 02/27 completed Not Available Not Available Not Available citalopram 40 mg tablet TAKE 1 TABLET BY MOUTH EVERY DAY active Not Available Not Available No t Available trazodone 50 mg tablet TAKE 1 TABLET BY MOUTH EVERY DAY AT BEDTIME 02/27 completed Not Available Not Available Not Available azithromyci n 250 mg tablet FPD 11/21 completed Not Available Not Available Not Available hydrocodone 5 mg-acetamin ophen 325 mg tablet TAKE 1 TABLET BY MOUTH EVERY 6 HOURS NEEDED FOR PAIN OR ACUTE PAIN 11/21 completed Not Available Not Available Not Available prednisone 20 mg tablet 11/21 completed Not Available Not Available Not Available sumatriptan 50 mg tablet TAKE 1 TABLET BY MOUTH AT ONSET. MAY REPEAT IN 2 HOURS. MAX OF 100 MG DAILY active Not Available Not Available No t Available penicillin V potassium 500 mg tablet TAKE ONE T PO QID FOR SEVEN DAYS 11/21 completed Not Available Not Available Not Available amlodipine 5 mg tablet active Not Available Not Available Not Available tramadol 50 mg tablet take 1 po daily for severe pain active Not Available Not Available No t Available spironolact one 25 mg tablet active Not Available Not Available Not Available ondansetron 8 mg disintegrat ing tablet DISSOLVE 1 TABLET ON THE TONGUE EVERY 6 HOURS NEEDED active Not Available Not Available No t Available prednisone 10 mg tablets in a dose pack Take 1 tab by mouth, 3 times a day for 3 daysTake 1 tab by mouth 2 times a day for 2 daysTake 1 tab by mouth once a day for 1 day 12/25 completed Not Available Not Available Not Available citalopram 20 mg tablet TAKE 1 TABLET BY MOUTH EVERY DAY AT BEDTIME 11/21 completed Not Available Not Available Not Available lorazepam 0.5 mg tablet TAKE 1 TABLET BY MOUTH EVERY 12 HOURS NEEDED FOR ANXIETY active Not Available Not Available No t Available OneToLetMeHearYa Ultra Test strips CHECK BLOOD SUGAR TWICE DAILY active Not Available Not Available No t Available Kenalog 10 mg/mL suspension for injection In office injection administe red by the provider 11/28 completed [facility]: 0003- 0494- 20 Not Available Not Available Not Available hydrocodone 7.5 mg-acetamin ophen 325 mg tablet TK 1 TO 2 TS PO Q 6 H PRN P 11/21 completed Not Available Not Available Not Available cephalexin 500 mg capsule 11/21 completed Not Available Not Available Not Available misoprostol 200 mcg tablet TAKE 1 TABLET BY MOUTH TWICE DAILY WITH DICLOFENA C 07/04 completed Not Available Not Available Not Available promethazin e 25 mg tablet TAKE ONE T PO TWICE A DAY 11/21 completed Not Available Not Available Not Available diclofenac sodium 75 mg tablet,kevin yed release take 1 tablet PO BID with food 2022 active Not Available Not Available Not Avai lable hydrochloro thiazide 25 mg tablet active Not Available Not Available No t Available diclofenac sodium 50 mg tablet,kevin yed release TAKE 1 TABLET BY MOUTH TWICE DAILY active Not Available Not Available No t Available ibuprofen 600 mg tablet TK 1 T PO BID PRN 11/21 completed Not Available Not Available Not Available methylpredn isolone 4 mg tablets in a dose pack FOLLOW PACKAGE DIRECTION S active Not Available Not Available No t Available fluticasone propionate 50 mcg/actuati on nasal spray,suspe nsion SHAKE LIQUID AND USE 1 SPRAY IN EACH NOSTRIL TWICE DAILY active Not Available Not Available No t Available metronidazo le 0.75 % topical gel APPLY TOPICALLY TO THE AFFECTED AREA TWICE DAILY active Not Available Not Available No t Available loratadine 10 mg tablet TAKE 1 TABLET BY MOUTH DAILY active Not Available Not Available No t Available cyclobenzap rine 5 mg tablet TK ONE T PO BID PRN 03/03 /2022 completed Not Available Not Available Not Available hydrochloro thiazide 12.5 mg tablet TAKE 1 TABLET BY MOUTH EVERY DAY 11/28 completed Not Available Not Available Not Available ropivacaine (PF) 5 mg/mL (0.5 %) injection solution In office injection administe red by the provider active Not Available Not Available No t Available OneTouch Ultra2 Meter USE DIRECTED TO TEST BLOOD SUGAR TWICE DAILY active Not Available Not Available No t Available OneTouch Delica Plus Lancet 33 gauge USE TWICE DAILY active Not Available Not Available No t Available Vitals Date Recorded Body mass index (BMI) Body mass index (BMI) Body height Body height Body weight Body weight Provider Name and Address Organization Details Last Updated DateTime 11/19/2022 39.9 kg/m2 39.3 kg/m2 154.94 cm 154.94 cm 84855.9 9 g 64386.2 1 g Not Available [facility] 17:12:54 Date Recorded Body height Body mass index (BMI) Body weight Provider Name and Address Organization Details Last Updated DateTime 11/28/2022 157.48 cm 39.1 kg/m2 04546.77 g Alison Garrido [facility] [employer] 11/28/2022 12:13:17 Date Recorded Body height Body mass index (BMI) Body weight Provider Name and Address Organization Details Last Updated DateTime 02/27/2023 157.48 cm 39.1 kg/m2 43455.77 g Alison Garrido [employer] 02/27/2023 12:42:18 Date Recorded Body height Body mass index (BMI) Body weight Provider Name and Address Organization Details Last Updated DateTime 05/29/2023 157.48 cm 38.4 kg/m2 74756.4 g Alison GarridoAkampus [employer] 05/29/2023 12:06:16 Social History Question Answer Notes LastModified by Organizat ion Details LastModified Time What Is Your Level Of Alcohol Consumption? Occasional [id number] Information not available 11/19/2022 Sex: Unknown Functional Status None recorded. Mental Status None recorded. Family History Relationship Description Onset Age of this Age Resolved Age Notes LastModified by Organization Details LastModified Time Father Heart disease [id number] Not available 11/19/2022 17:12:31 Sister Family history of malignant neoplasm [id number] Not available 11/19/2022 17:12:31 Medical History No medical history recorded. Gynecological HistoryNo gynecological history recorded. Obstetrics History GPAL:G 0 P 0 0 0 0 Past Encounters Encounter ID Performer Location Encounter Start Date Encounter Closed Date Diagnosis/Indication Diagnosis SNOMED-CT Code Diagnosis ICD10 Code Diagnosis Note [id number] [facility] [address] [place] [address] 11/21/2021 00:00:00 11/21/2021 16:34:32 [id number] [facility] [address] [place] [address] 12/25/2021 00:00:00 12/25/2021 16:13:35 [id number] [facility] [address] [place] [address] 04/04/2022 00:00:00 07/04/2022 12:15:43 [id number] [facility] [address] [place] [address] 07/04/2022 00:00:00 07/04/2022 12:18:34 [id number] [facility] [address] [place] [address] 10/17/2022 00:00:00 10/18/2022 16:20:34 [id number] Kwadwo Braun MD [facility] [address] [place] [address] 11/28/2022 11:41:27 11/28/2022 13:02:38 Osteoarthritis of right knee joint 0795982416 52864 M17.11 [id number] Kwadwo Braun MD [facility] [address] [place] [address] 02/27/2023 11:51:34 03/11/2023 09:15:21 Osteoarthritis of right knee joint 1518740795 81968 M17.11 Z79.1 extermination inspector current use of non-steroidal anti-inflammatory drug 1464040118 35522 Z79.1 M17.11 [id number] LAUREN eBar [facility] [place] [address] [place] [address] 05/29/2023 11:46:01 05/29/2023 12:19:39 Osteoarthritis of right knee joint 4467321783 85977 M17.11 Z79.1 Health Concerns Section Related Observation LastModified by Organization Detai ls LastModified Time None Recorded Concern Status LastModified by Organization Details LastModified Time None Recorded Advance Directives Directive None Recorded Payers Encounter Date Sequence Insurance Name Policy Number Policy Renee Covered Member ID Renee Member ID Guarantor Name 11/28/2022 1 [employer] [id number] Hussain Dima [id number] Hussain Ch 11/28/2022 2 [place] [facility] [place] Hussain Ch [id number] Hussain Ch 02/27/2023 1 [employer] [id number] Hussain Ch [id number] Hussain Ch 02/27/2023 2 [place] [facility] PUBLIC AID Hussain Ch [id number] Hussain Ch 05/29/2023 1 [employer] [id number] Hussain Dima [id number] Hussain Ch 05/29/2023 2 [place] [facility] [place] Hussain Ch [id number] Hussain Ch OBGyn Episode No OBEpisode recorded.
--- OUTSIDE RECORDS SUMMARY | 2024-10-26 02:54 | XMS_ITS | Encounter Summary ---
Author Organization [facility] Address [address] [place] [address] Care Team Providers Care Commissioning Editor Name Role Phone Zach Rhodes MD Primary Care Provider [phone] Encounter Details Date Type Department Care Team (Late st Contact Info) Description 06/18/2022 Streemt Message Enc [facility] Family & Internal Medicine [facility] [address] [place] [address] [place] [id number] [place] [address] Blood pressure Social History Tobacco Use [...] st Contact Info) Description 10/31/2024 1:00 PM MARKETING COMPLIANCE MANAGER Appointment [facility] [address] [place] [address] [place] [address] [place] [address] Tal Greenberg MD [address] [facility] [address] [place] [address] 11/02/2024 1:45 PM MARKETING COMPLIANCE MANAGER Appointment [facility] [address] [place] [address] Tal Greenberg MD [facility] [address] [place] [address] Marielle Gaming, STRAP BUCKLER MACHINE 11/04/2024 1:45 PM MARKETING COMPLIANCE MANAGER Appointment [facility] [address] [place] [address] Tal Greenberg MD [facility] [address] [place] [address] Marielle Gaming, STRAP BUCKLER MACHINE 11/07/2024 3:00 PM MARKETING COMPLIANCE MANAGER Appointment [facility] [address] [place] [address] [place] [address] [place] [address] Tal Greenberg MD [facility] [address] [place] [address] 11/09/2024 1:45 PM MARKETING COMPLIANCE MANAGER Appointment [facility] [address] [place] [address] Tal Greenberg MD [address] [facility] [address] [place] [address] Marielle Gaming, STRAP BUCKLER MACHINE 11/11/2024 1:45 PM MARKETING COMPLIANCE MANAGER Appointment [facility] [address] [place] [address] Tal Greenberg MD [address] [facility] [address] [place] [address] Marielle Gaming, STRAP BUCKLER MACHINE 11/14/2024 1:45 PM MARKETING COMPLIANCE MANAGER Appointment [facility] [address] [place] [address] Tal Greenberg MD [facility] [address] [place] [address] Marielle Gaming, STRAP BUCKLER MACHINE 11/16/2024 1:45 PM MARKETING COMPLIANCE MANAGER Appointment [facility] [address] [place] [address] Tal Greenberg MD [facility] [address] [place] [address] [place] [address] [place] [address] 11/18/2024 1:45 PM MARKETING COMPLIANCE MANAGER Appointment [facility] [address] [place] [address] [place] [address] [place] [address] Tal Greenberg MD [facility] [address] [place] [address] 11/21/2024 1:00 PM MARKETING COMPLIANCE MANAGER Appointment [facility] [address] [place] [address] [place] [address] [place] [address] Tal Greenberg MD [address] [facility] [address] [place] [address] 11/23/2024 1:45 PM MARKETING COMPLIANCE MANAGER Appointment [facility] [address] [place] [address] Tal Greenberg MD [address] [facility] [address] [place] [address] Marielle Gaming PTA 11/25/2024 1:45 PM MARKETING COMPLIANCE MANAGER Appointment [facility] [address] [place] [address] Tal Greenberg MD [facility] [address] [place] [address] Marielle Gaming, STRAP BUCKLER MACHINE documented as of this encounter Visit Diagnoses Not on filedocumented in this encounter Additional Health Concerns Infection Onset Date Last Indicated Resolved Time COVID-19 Rule Out 09/09/2022 09/09/2022 09/09/2022 9:17 AM MARKETING COMPLIANCE MANAGER Assessment Noted Time PHQ-9 Depression Total Score: 10 022 9:01 AM CDT documented as of this encounter Care Teams Commissioning Editor Relationship Specialty [place] [address] [place] [address] PCP - General FAMILY PRACTICE 09/27/18 documented as of this encounter
--- OUTSIDE RECORDS SUMMARY | 2024-10-26 02:54 | XMS_ITS | Encounter Summary ---
Author Organization [facility] Address [address] [place] [address] Care Team Providers Care Rental Clerk Name Role Phone Zach Rhodes MD Primary Care Provider [phone] Encounter Details Date Type Department Care Team (Late st Contact Info) Description 05/29/2022 HiveLivet Message Enc [facility] Medical Group Family & Internal Medicine [facility] [address] [place] [address] Zach Rhodes [place] [id number] [place] [address] Break Social History Tobacco Use Types Packs/Day Years [...] suspected to have Coronavirus/COVID-19? No / Unsure 05/08/2022 10:52 AM CDT documented as of this encounter Plan of Treatment Upcoming Encounters Date Type Department Care Team (Late st Contact Info) Description 10/31/2024 1:00 PM HVAC INSTALLER Appointment [facility] [address] [place] [address] [place] [address] [place] [address] [facility] [address] [place] [address] 11/02/2024 1:45 PM HVAC INSTALLER Appointment [facility] [address] [place] [address] [facility] [address] [place] [address] Marielle Gaming, DIRECTOR OF BUSINESS OPERATIONS 11/04/2024 1:45 PM HVAC INSTALLER Appointment [facility] [address] [place] [address] [address] [facility] [address] [place] [address] Marielle Gaming, DIRECTOR OF BUSINESS OPERATIONS 11/07/2024 3:00 PM HVAC INSTALLER Appointment [facility] [address] [place] [address] [place] [address] [place] [address] [facility] [address] [place] [address] 11/09/2024 1:45 PM HVAC INSTALLER Appointment [facility] [address] [place] [address] Tal Greenberg MD [address] [facility] [address] [place] [address] Marielle Gaming, DIRECTOR OF BUSINESS OPERATIONS 11/11/2024 1:45 PM HVAC INSTALLER Appointment [facility] [address] [place] [address] Tal Greenberg MD [address] [facility] [address] [place] [address] Marielle Gaming, DIRECTOR OF BUSINESS OPERATIONS 11/14/2024 1:45 PM HVAC INSTALLER Appointment [facility] [address] [place] [address] Tal Greenberg MD [address] [facility] [address] [place] [address] Marielle Gaming, DIRECTOR OF BUSINESS OPERATIONS 11/16/2024 1:45 PM HVAC INSTALLER Appointment [facility] [address] [place] [address] Tal Greenberg MD [address] [facility] [address] [place] [address] [place] [address] [place] [id number] 11/18/2024 1:45 PM HVAC INSTALLER Appointment [facility] [address] [place] [address] [place] [address] [place] [address] Tal Greenberg MD [address] [facility] [address] [place] [address] 11/21/2024 1:00 PM HVAC INSTALLER Appointment [facility] [address] [place] [address] [place] [address] [place] [address] Tal Greenberg MD [address] [facility] [address] [place] [address] 11/23/2024 1:45 PM HVAC INSTALLER Appointment [facility] [address] [place] [address] Tal Greenberg MD [address] [facility] [address] [place] [address] Marielle Gaming PTA 11/25/2024 1:45 PM HVAC INSTALLER Appointment [facility] [address] [place] [address] Tal Greenberg MD [address] [facility] [address] [place] [address] Marielle Gaming PTA documented as of this encounter Visit Diagnoses Not on filedocumented in this encounter Additional Health Concerns Infection Onset Date Last Indicated Resolved Time COVID-19 Rule Out 09/09/2022 09/09/2022 09/09/2022 9:17 AM HVAC INSTALLER Assessment Noted Time PHQ-9 Depression Total Score: 7 05/31/20 21 9:09 AM CDT documented as of this encounter Care Teams Rental Clerk Relationship Specialty [place] [address] [place] [address] PCP - General FAMILY PRACTICE 09/27/18 documented as of this encounter
--- OUTSIDE RECORDS SUMMARY | 2024-10-26 02:54 | XMS_ITS | Encounter Summary ---
Author Organization [facility] Address [address] [place] [address] Care Team Providers Care System Administrator Name Role Phone Zach Rhodes MD Primary Care Provider [phone] Encounter Details Date Type Department Care Team (Late st Contact Info) Description 05/03/2022 Skeedt Message Enc [facility] Medical Group Family & Internal Medicine [facility] [id number] [place] [address] Zach [place] [id number] [place] [address] sore throat Social History Tobacco Use Types Packs/Day Years [...] st Contact Info) Description 10/31/2024 1:00 PM ACOUSTICAL ENGINEER Appointment [facility] [address] [place] [address] [place] [address] [place] [address] Tal Greenberg MD 4804 [facility] [address] [place] [address] 11/02/2024 1:45 PM ACOUSTICAL ENGINEER Appointment [facility] [address] [place] [address] Tal Greenberg MD 4804 [facility] [address] [place] [address] Marielle Gaming, SCHOOL CLERK 11/04/2024 1:45 PM ACOUSTICAL ENGINEER Appointment [facility] [address] [place] [address] Tal Greenberg MD 4804 [facility] [address] [place] [address] Marielle Gaming, SCHOOL CLERK 11/07/2024 3:00 PM ACOUSTICAL ENGINEER Appointment [facility] [address] [place] [address] [place] [address] [place] [address] Tal Greenberg MD 4804 [facility] [address] [place] [address] 11/09/2024 1:45 PM ACOUSTICAL ENGINEER Appointment [facility] [address] [place] [address] Tal Greenberg MD 4804 [facility] [address] [place] [address] Marielle Gaming, SCHOOL CLERK 11/11/2024 1:45 PM ACOUSTICAL ENGINEER Appointment [facility] [address] [place] [address] Tal Greenberg MD 4804 [facility] [address] [place] [address] Marielle Gaming, SCHOOL CLERK 11/14/2024 1:45 PM ACOUSTICAL ENGINEER Appointment [facility] [address] [place] [address] Tal Greenberg MD 4804 [facility] [address] [place] [address] Marielle Gaming, SCHOOL CLERK 11/16/2024 1:45 PM ACOUSTICAL ENGINEER Appointment [facility] [address] [place] [address] Tal Greenberg MD [facility] [address] [place] [address] [place] [address] [place], [place] [id number] 11/18/2024 1:45 PM ACOUSTICAL ENGINEER Appointment [facility] [address] [place] [address] [place] [address] [place] [address] Tal Greenberg MD 4804 [facility] [address] [place] [address] 11/21/2024 1:00 PM ACOUSTICAL ENGINEER Appointment [facility] [address] [place] [address] [place] [address] [place] [address] Tal Greenberg MD 4804 [facility] [address] [place] [address] 11/23/2024 1:45 PM ACOUSTICAL ENGINEER Appointment [facility] [address] [place] [address] Tal Greenberg MD 4804 [facility] [address] [place] [address] Marielle Gaming PTA 11/25/2024 1:45 PM ACOUSTICAL ENGINEER Appointment [facility] [address] [place] [address] Tal Greenberg MD 4804 [facility] [address] [place] [address] Marielle Gaming PTA documented as of this encounter Visit Diagnoses Not on filedocumented in this encounter Additional Health Concerns Infection Onset Date Last Indicated Resolved Time COVID-19 Rule Out 09/09/2022 09/09/2022 09/09/2022 9:17 AM ACOUSTICAL ENGINEER Assessment Noted Time PHQ-9 Depression Total Score: 7 05/31/20 21 9:09 AM CDT documented as of this encounter Care Teams System Administrator Relationship Specialty [place] [address] [place] [address] PCP - General FAMILY PRACTICE 09/27/18 documented as of this encounter
--- OUTSIDE RECORDS SUMMARY | 2024-10-26 02:54 | XMS_ITS | Encounter Summary ---
Author Organization [facility] Address [address] [place] [address] Care Team Providers Care Switchboard Mechanic Name Role Phone Zach Rhodes MD Primary Care Provider [phone] Encounter Details Date Type Department Care Team (Late Contact Info) Description 07/08/2021 Youtuot Message Enc [facility] Medical Group Family & Internal Medicine [facility] [address] [place] [address] Zach Rhodes MD [phone] [place] [address] [phone] RE: Question Social History Tobacco Use Types [...] st Contact Info) Description 10/31/2024 1:00 PM E COMMERCE MARKETING MANAGER Appointment [facility] [address] [place] [address] [place] [address] [place] [address] Tal Greenberg MD 4804 [facility] [address] [place] [address] 11/02/2024 1:45 PM E COMMERCE MARKETING MANAGER Appointment [facility] [address] [place] [address] Tal Greenberg MD 4804 [facility] [address] [place] [address] Marielle Gaming, QUALITY COMPLIANCE MANAGER 11/04/2024 1:45 PM E COMMERCE MARKETING MANAGER Appointment [facility] [address] [place] [address] Tal Greenberg MD 4804 [facility] [address] [place] [address] Marielle Gaming, QUALITY COMPLIANCE MANAGER 11/07/2024 3:00 PM E COMMERCE MARKETING MANAGER Appointment [facility] [address] [place] [address] [place] [address] [place] [address] Tal Greenberg MD 4804 [facility] [address] [place] [address] 11/09/2024 1:45 PM E COMMERCE MARKETING MANAGER Appointment [facility] [address] [place] [address] Tal Greenberg MD 4804 [facility] [address] [place] [address] Marielle Gaming, QUALITY COMPLIANCE MANAGER 11/11/2024 1:45 PM E COMMERCE MARKETING MANAGER Appointment [facility] [address] [place] [address] Tal Greenberg MD 4804 [facility] [address] [place] [address] Marielle Gaming, QUALITY COMPLIANCE MANAGER 11/14/2024 1:45 PM E COMMERCE MARKETING MANAGER Appointment [facility] [address] [place] [address] Tal Greenberg MD 4804 [facility] [address] [place] [address] Marielle Gaming, QUALITY COMPLIANCE MANAGER 11/16/2024 1:45 PM E COMMERCE MARKETING MANAGER Appointment [facility] [address] [place] [address] Tal Greenberg MD [facility] [address] [place] [address] [place] [address] [place] [address] 11/18/2024 1:45 PM E COMMERCE MARKETING MANAGER Appointment [facility] [address] [place] [address] [place] [address] [place] [address] Tal Greenberg MD 4804 [facility] [address] [place] [address] 11/21/2024 1:00 PM E COMMERCE MARKETING MANAGER Appointment [facility] [address] [place] [address] [place] [address] [place] [address] Tal Greenberg MD 4804 [facility] [address] [place] [address] 11/23/2024 1:45 PM E COMMERCE MARKETING MANAGER Appointment [facility] [address] [place] [address] Tal Greenberg MD 4804 [facility] [address] [place] [address] Marielle Gaming PTA 11/25/2024 1:45 PM E COMMERCE MARKETING MANAGER Appointment [facility] [address] [place] [address] Tal Greenberg MD 4804 [facility] [address] [place] [address] Marielle Gaming PTA documented as of this encounter Visit Diagnoses Not on filedocumented in this encounter Additional Health Concerns Infection Onset Date Last Indicated Resolved Time COVID-19 Rule Out 09/09/2022 09/09/2022 09/09/2022 9:17 AM E COMMERCE MARKETING MANAGER Assessment Noted Time PHQ-9 Depression Total Score: 7 05/31/20 21 9:09 AM CDT documented as of this encounter Care Teams Switchboard Mechanic Relationship Specialty [place] [address] [place] [address] PCP - General FAMILY PRACTICE 09/27/18 documented as of this encounter
--- OUTSIDE RECORDS SUMMARY | 2024-10-26 02:54 | XMS_ITS | Encounter Summary ---
Author Organization [facility] Address [address] [place] [address] Care Team Providers Care Special Client Bus Driver Name Role Phone Zach Rhodes MD Primary Care Provider [phone] Encounter Details Date Type Department Care Team (Late st Contact Info) Description 08/14/2021 Guess Your Songs Message Enc [facility] Medical Group Family & Internal Medicine [address] [address] [place] Provider Forms Social History Tobacco Use Types [...] COVID-19? No / Unsure 08/07/2021 1:12 PM SEMICONDUCTOR WAFER INSPECTOR documented as of this encounter Progress Notes * Sandra Smith RN - 08/19/2021 10:10 AM CST Pt made aware via [employer] that her forms were completed and she could orange picker machine operator in our office CONDUCTOR WAFER INSPECTOR * Sandra Smith RN - 08/19/2021 10:08 AM CST Your paperwork is done and ready to orange picker machine operator. I will place it at the front office medical assistant in our office for you to orange picker machine operator. CONDUCTOR WAFER INSPECTOR * Gris Roche NP - 08/18/2021 2:28 AM CST Yes come see me CONDUCTOR WAFER INSPECTOR * Sandra Smith RN - 08/16/2021 1:37 PM CST Have you completed this yet? CONDUCTOR WAFER INSPECTOR * Earlene Don - 08/16/2021 1:35 PM CST Patient is calling to see if her leave of absence paperwork has been completed. CONDUCTOR WAFER INSPECTOR documented in this encounter Plan of Treatment Upcoming Encounters Date Type Department Care Team (Late st Contact Info) Description 10/31/2024 1:00 PM SEMICONDUCTOR WAFER INSPECTOR Appointment [facility] [address] [place] [address] [place] [address] [place] [address] Tal Greenberg MD 4804 [facility] [address] [place] [address] 11/02/2024 1:45 PM SEMICONDUCTOR WAFER INSPECTOR Appointment [facility] [address] [place] [address] Tal Greenberg MD 4804 [facility] [address] [place] [address] Marielle Gaming, CONTINUOUS IMPROVEMENT MANAGER 11/04/2024 1:45 PM SEMICONDUCTOR WAFER INSPECTOR Appointment [facility] [address] [place] [address] Tal Greenberg MD 4804 [facility] [address] [place] [address] Marielle Gaming, CONTINUOUS IMPROVEMENT MANAGER 11/07/2024 3:00 PM SEMICONDUCTOR WAFER INSPECTOR Appointment [facility] [address] [place] [address] [place] [address] [place] [address] Tal Greenberg MD 4804 [facility] [address] [place] [address] 11/09/2024 1:45 PM SEMICONDUCTOR WAFER INSPECTOR Appointment [facility] [address] [place] [address] Tal Greenberg MD 4804 [facility] [address] [place] [address] Marielle Gaming, CONTINUOUS IMPROVEMENT MANAGER 11/11/2024 1:45 PM SEMICONDUCTOR WAFER INSPECTOR Appointment [facility] [address] [place] [address] Tal Greenberg MD 4804 [facility] [address] [place] [address] Marielle Gaming, CONTINUOUS IMPROVEMENT MANAGER 11/14/2024 1:45 PM SEMICONDUCTOR WAFER INSPECTOR Appointment [facility] [address] [place] [address] Tal Greenberg MD 5620 [facility] [address] [place] [address] Marielle Gaming CONTINUOUS IMPROVEMENT MANAGER 11/16/2024 1:45 PM SEMICONDUCTOR WAFER INSPECTOR Appointment [facility] [address] [place] [address] Tal Greenberg MD 3459 [facility] [address] [place] [address] [place] [address] [place] [address] 11/18/2024 1:45 PM SEMICONDUCTOR WAFER INSPECTOR Appointment [facility] [address] [place] [address] [place] [address] [place] [address] Tal Greenberg MD 4114 [facility] [address] [place] [address] 11/21/2024 1:00 PM SEMICONDUCTOR WAFER INSPECTOR Appointment [facility] [address] [place] [address] [place] [address] [place] [address] Tal Greenberg MD 4172 [facility] [address] [place] [address] 11/23/2024 1:45 PM SEMICONDUCTOR WAFER INSPECTOR Appointment [facility] [address] [place] [address] Tal Greenberg MD 9519 [facility] [address] [place] [address] Marielle Gaming PTA 11/25/2024 1:45 PM SEMICONDUCTOR WAFER INSPECTOR Appointment [facility] [address] [place] [address] Tal Greenberg MD 4804 [facility] [address] [place] [address] Mairelle Gaming PTA documented as of this encounter Visit Diagnoses Not on filedocumented in this encounter Additional Health Concerns Infection Onset Date Last Indicated Resolved Time COVID-19 Rule Out 09/09/2022 09/09/2022 09/09/2022 9:17 AM SEMICONDUCTOR WAFER INSPECTOR Assessment Noted Time PHQ-9 Depression Total Score: 7 05/31/20 21 9:09 AM CDT documented as of this encounter Care Teams Special Client Bus Driver Relationship Specialty [place] [address] [place] [address] PCP - General FAMILY PRACTICE 09/27/18 documented as of this encounter
--- OUTSIDE RECORDS SUMMARY | 2024-10-26 02:54 | XMS_ITS | Encounter Summary ---
Author Organization [facility] Address [address] [place] [address] Care Team Providers Care Dental Laboratory Technician Name Role Phone Zach Rhodes MD Primary Care Provider [phone] Encounter Details Date Type Department Care Team (Late Contact Info) Description 09/07/2024 VMTurbot Message Enc [facility] Medical Group Family & Internal Medicine [facility] [address] [place] [address] [place] [address] [place] [address] Surgery Social History Tobacco Use Types Packs/Day Years [...] (Late Contact Info) Description 10/31/2024 1:00 PM TOOTH CUTTER SPUR Appointment [facility] [address] [place] [address] [place] [address] [place] [address] Tal Greenberg MD 4804 [facility] [address] [place] [address] 11/02/2024 1:45 PM TOOTH CUTTER SPUR Appointment [facility] [address] [place] [address] Tal Greenberg MD 4804 [facility] [address] [place] [address] Marielle Gaming, JANITORIAL MANAGER 11/04/2024 1:45 PM TOOTH CUTTER SPUR Appointment [facility] [address] [place] [address] Tal Greenberg MD [facility]4 [facility] [address] [place] [address] Marielle Gaming, JANITORIAL MANAGER 11/07/2024 3:00 PM TOOTH CUTTER SPUR Appointment [facility] [address] [place] [address] [place] [address] [place] [address] Tal Greenberg MD 4804 [facility] [address] [place] [address] 11/09/2024 1:45 PM TOOTH CUTTER SPUR Appointment [facility] [address] [place] [address] Tal Greenberg MD 4804 [facility] [address] [place] [address] Marielle Gaming, JANITORIAL MANAGER 11/11/2024 1:45 PM TOOTH CUTTER SPUR Appointment [facility] [address] [place] [address] Tal Greenberg MD 4804 [facility] [address] [place] [address] Marielle Gaming, JANITORIAL MANAGER 11/14/2024 1:45 PM TOOTH CUTTER SPUR Appointment [facility] [address] [place] [address] Tal Greenberg MD 4804 [facility] [address] [place] [address] Marielle Gaming, JANITORIAL MANAGER 11/16/2024 1:45 PM TOOTH CUTTER SPUR Appointment [facility] [address] [place] [address] Tal Greenberg MD [facility] [address] [place] [address] [place] [address] [place] [address] 11/18/2024 1:45 PM TOOTH CUTTER SPUR Appointment [facility] [address] [place] [address] [place] [address] [place] [address] Tal Greenberg MD 4804 [facility] [address] [place] [address] 11/21/2024 1:00 PM TOOTH CUTTER SPUR Appointment [facility] [address] [place] [address] [place] [address] [place] [address] Tal Greenberg MD 4804 [facility] [address] [place] [address] 11/23/2024 1:45 PM TOOTH CUTTER SPUR Appointment [facility] [address] [place] [address] Tal Greenberg MD 4804 [facility] [address] [place] [address] Marielle Gaming PTA 11/25/2024 1:45 PM TOOTH CUTTER SPUR Appointment [facility] [address] [place] [address] Tal Greenberg MD 4804 [facility] [address] [place] [address] Marielle Gaming PTA documented as of this encounter Visit Diagnoses Not on filedocumented in this encounter Additional Health Concerns Assessment Noted Time PHQ-9 Depression Total Score: 2 04/18/20 24 12:58 PM CDT documented as of this encounter Care Teams Dental Laboratory Technician Relationship Specialty [place] [address] [place] [address] PCP - General FAMILY PRACTICE 09/27/18 documented as of this encounter
--- OUTSIDE RECORDS SUMMARY | 2024-10-26 02:54 | XMS_ITS | Encounter Summary ---
Author Organization [facility] Address [address] [place] [id number] Care Team Providers Care Spine Surgeon Name Role Phone Zach Rhodes MD Primary Care Provider [phone] Encounter Details Date Type Department Care Team (Late st Contact Info) Description 10/21/2021 [employer] Message Enc [facility] Family & Internal Medicine [facility] [id number] [place] [phone] Zach Rhodes MD [id number] [place] [phone] paperwork Social History Tobacco Use Types Packs/Day [...] COVID-19? No / Unsure 10/17/2021 1:53 PM RN CHRONIC documented as of this encounter Plan of Treatment Upcoming Encounters Date Type Department Care Team (Late st Contact Info) Description 10/31/2024 1:00 PM RN CHRONIC Appointment [facility] [address] [place] [address] [place] [address] [place] [address] Tal Greenberg MD [facility] [address] [place] [address] 11/02/2024 1:45 PM RN CHRONIC Appointment [facility] [address] [place] [address] Tal Greenberg MD [address] [place] [address] [address] [place] [address] Marielle Gaming, MANAGER SUPPORT 11/04/2024 1:45 PM RN CHRONIC Appointment [facility] [address] [place] [address] Tal Greenberg MD [address] [place] [address] [address] [place] [address] Marielle Gaming, MANAGER SUPPORT 11/07/2024 3:00 PM RN CHRONIC Appointment [facility] [address] [place] [address] [place] [address] [place] [address] Tal Greenberg MD [address] [place] [address] [address] [place] [address] 11/09/2024 1:45 PM RN CHRONIC Appointment [facility] [address] [place] [address] Tal Greenberg MD 4804 [facility] [address] [place] [address] Marielle Gaming, MANAGER SUPPORT 11/11/2024 1:45 PM RN CHRONIC Appointment [facility] [address] [place] [address] Tal Greenberg MD 4804 [facility] [address] [place] [address] Marielle Gaming, MANAGER SUPPORT 11/14/2024 1:45 PM RN CHRONIC Appointment [facility] [address] [place] [address] Tal Greenberg MD 4804 [facility] [address] [place] [address] Marielle Gaming, MANAGER SUPPORT 11/16/2024 1:45 PM RN CHRONIC Appointment [facility] [address] [place] [address] Tal Greenberg MD 4804 [facility] [address] [place] [address] [place] [address] [place] [address] 11/18/2024 1:45 PM RN CHRONIC Appointment [facility] [address] [place] [address] [place] [address] [place] [address] Tal Greenberg MD 4804 [facility] [address] [place] [address] 11/21/2024 1:00 PM RN CHRONIC Appointment [facility] [address] [place] [address] [place] [address] [place] [address] Tal Greenberg MD 4804 [facility] [address] [place] [address] 11/23/2024 1:45 PM RN CHRONIC Appointment [facility] [address] [place] [address] Tal Greenberg MD [address]4 [facility] [address] [place] [address] Marielle Gaming PTA 11/25/2024 1:45 PM RN CHRONIC Appointment [facility] [address] [place] [address] Tal Greenberg MD [facility] [address] [place] [address] Marielle Gaming, CABRERA documented as of this encounter Visit Diagnoses Not on filedocumented in this encounter Additional Health Concerns Infection Onset Date Last Indicated Resolved Time COVID-19 Rule Out 09/09/2022 09/09/2022 09/09/2022 9:17 AM RN CHRONIC Assessment Noted Time PHQ-9 Depression Total Score: 7 05/31/20 21 9:09 AM CDT documented as of this encounter Care Teams Spine Surgeon Relationship Specialty [place] [address] [place] [address] PCP - General FAMILY PRACTICE 09/27/18 documented as of this encounter
--- NOTE | 2024-10-26 06:41 | P.PNAN_ITS ---
Anes - Initial Pre Proc Eval Procedure: Operation Date: 10/26/24 07:30 Proposed Procedures p Right Total Knee Arthroplasty - Tal Greenberg MD Date/Time: 10/26/24 06:41 Surgeon: Tal Greenberg MD Pre Op Diagnosis: OA right knee Patient Data Age: 49 Gender: F Height: 1.6 m Weight: 98.7 kg Last Vital Signs Temp 37.1 C 08/05/24 14:45 Pulse 87 08/05/24 14:45 Resp 18 08/05/24 14:45 BP 171/93 H 08/05/24 14:45 Pulse Ox 99 08/05/24 14:45 O2 Del Method Room Air 08/05/24 14:45 Allergies Allergy/AdvReac Type Severity Reaction Status Date / Time No Known Allergies Allergy Verified 10/13/24 08:51 Home Medications ?Medication ?Instructions ?Recorded ?Confirmed ?Type amlodipine 5 mg tablet 5 mg PO DAILY 06/16/24 08/05/24 History citalopram 40 mg tablet 40 mg PO QAM 06/16/24 08/05/24 History cyclobenzaprine 10 mg tablet 10 mg PO PRN PRN Muscle Pain 06/16/24 08/05/24 History fluticasone propionate 50 2 spray intranasal PRN PRN Allergy 06/16/24 08/05/24 History mcg/actuation nasal Symptoms spray,suspension hydrochlorothiazide 25 mg tablet 25 mg PO HS 06/16/24 08/05/24 History loratadine 10 mg tablet 10 mg PO DAILY 06/16/24 08/05/24 History meloxicam 7.5 mg tablet 7.5 mg PO DAILY 06/16/24 08/05/24 History metronidazole 0.75 % topical gel 0.75 applic topical PRN PRN ROSACEA 06/16/24 08/05/24 History ondansetron 8 mg disintegrating 8 mg PO PRN PRN Nausea 06/16/24 08/05/24 History tablet quetiapine 25 mg tablet 25 mg PO QAM PRN insomnia 06/16/24 10/13/24 History sumatriptan succinate 50 mg tablet 50 mg PO PRN PRN Migraine Headache 06/16/24 08/05/24 History tramadol 50 mg tablet 50 mg PO PRN PRN Pain 06/16/24 08/05/24 History buspirone 10 mg tablet 10 mg PO DAILY 08/05/24 08/05/24 History polyethylene glycol 3350 17 17 g PO DAILY PRN constipation 08/05/24 10/13/24 History gram/dose oral powder spironolactone 25 mg tablet 25 mg PO DAILY 08/05/24 10/13/24 History Patient hx anesthesia problems: none Family hx anesthesia problems: none Results Review: All pre-operative results and documents have been reviewed as part of the pre- operative evaluation. [facility] Past Medical History Medical History Hypoglycemia Family History Family History Mother Family history of migraine headaches Father No problems noted. Sibling No problems noted. Social History Social History Smoking status: Never smoker Second hand tobacco smoke exposure: Yes Additional smoking assessment comments: DENIES ANY FORM OF TOBACCO USE Alcohol intake: never Substance use: never Substance use type: does not use Do You Feel Safe in your Home?: Yes Lack of Transportation: No Lack of Food: Sometimes True Current Housing: I Have Housing Concerned About Future Housing: No Difficulty Paying Gas/Electric Bills: No Difficulty Paying for Meds: No Currently Unemployed: No Education: High School Diploma/GED Difficulty w/ Childcare or Family Care: No Living arrangements: with friend(s) Additional living arrangements comments: 2 ROOMMATES Occupation/Education: occupation Additional occupation/education comments: [employer]. Gender identity (if verbalized by the patient): Female Spiritual care concerns: No Anes - Eval Final PreProcedure Day of Procedure 10/26/24 06:41 Patient weight: obese Heart: regular rate and rhythm Lungs: decreased breath sounds Airway: Mallampati scale class II and special considerations poor dentition Neurological: alert and oriented Last oral intake: >/= 8 hours ASA classification: III Emergent: no Anesthetic plan: proceed Anesthesia type and monitoring: general LMA and standard monitoring Results Review: All pre-operative results and documents have been reviewed as part of the pre- operative evaluation. Informed Consent: The patient's anesthetic plan and its attendant risks and benefits were discussed with the patient/family/POA. Questions were solicited and answers provided to the satisfaction of the patient/family/POA.
--- NOTE | 2024-10-26 06:48 | WPDHPUPDATE1 ---
History and Physical Update Update Date/Time: 10/26/24 06:48 History and Physical has been reviewed, including an updated exam of the patient. There are NO changes in the patient's condition. Risks, benefits, and alternatives have been discussed and questions answered. Patient agrees to proceed with procedure.
[2024-10-26] MEDS: ACETAMINOPHEN 500 MG TABLET 1000 MG PO (06:49)
[2024-10-26] MEDS: LACTATED RINGERS 1,000 ML 30 ML IV CONT ×2 (07:00→09:37)
[2024-10-26] MEDS: VANCOMYCIN 1,500 MG/NS 500 ML BAG 250 MG IVPB (07:02)
[2024-10-26] MEDS: TRANEXAMIC ACID 1,000MG/ISO100 1,000 MG/100 ML BAG 200 MG IVPB (07:05)
[2024-10-26] MEDS: ceFAZolin 2 GM/D5W 50 ML 2 GM/50 ML BAG IVPB ×3 (07:18→22:29)
[2024-10-26] MEDS: SODIUM CHLORIDE 0.9% IV 37.7 ML, MORPHINE SULFATE INJ (*CRX) 2 MG, ROPivacaine HCL 1% 2... INFILTRATE (07:50)
[2024-10-26] MEDS: GENTAMICIN BONE CEMENT REFOBACIN 1 EACH TOPICAL (07:58)
--- NOTE | 2024-10-26 08:27 | WPDANESPNB ---
Anes - Peripheral Nerve Block Date/Time: 10/26/24 08:27 I have discussed with the patient/family/POA the placement of a peripheral nerve block for post-operative pain management, including associated risks, benefits, complications, and side effects. Alternative methods of post-operative analgesia were detailed. Questions were solicited and answers provided to the satisfaction of the patient/family/POA. Time-Out: A pre-procedural Time-Out was completed immediately before starting the procedure and confirmed: Patient Identification, Site, Procedure, Patient Position and the Availability of Requisite Equipment. Clinical Indications: Acute post-operative pain management requested by the operative surgeon. Nerve Block Insertion Note Anes-nerve block: adductor canal right Patient position: supine Skin prep: chlorhexidine Needle: 22 gauge, stimulating, insulated echogenic needle. Needle length: 80 mm Technique: ultrasound Technique comment: mid 2mg fent 100mcg Injectate: bupivacaine 0.5% with epi 5 mcg/ml (30ml no epi) and dexamethasone (mg) Observations: tolerated well Complications: none Procedure start time:: 705 Procedure end time:: 712
--- NOTE | 2024-10-26 09:05 | P.OP_ITS ---
Procedure Note - Detailed Date of Procedure 10/26/24 Pre-op Diagnosis Osteoarthritis right knee Post-op Diagnosis Same Procedure Performed RIGHT total knee arthroplasty Surgeon Tal Greenberg MD Anesthesia General Indications Pain and Arthritis Description of Procedure The patient was brought to operating room #7. A general anesthetic was administered. Placed on the operating table and sterilely prepped and draped in usual manner. A longitudinal incision was made. Tourniquet inflated to 300 mmHg for a total of 52 minutes. Dissection was carried down to the fascia. Medial parapatellar incision was made and the patella subluxated laterally. P atella cut from 25 to 15 mm and sized for a 34 mm button. The tibia was cut perpendicular to the long axis and femur cut in 5 degrees of valgus. A 65 femur trialed. 67 tibia was felt to fit the best. The soft tissues balanced, hemostasis obtained. All [address], 67 tibia, 65 femur, 34 mm patella, and 12 mm poly. Motion was 0-125 degrees with good stability in both flexion and extension. The wound was closed with #2 Vicryl, 2-0 Vicryl and des. [employer] Estimated Blood Loss 200 Drains No Packing No Pathology None sent Complications No immediate complications Condition Stable Disposition PACU [facility] Billing Surgery - Charge Forward: Surgery Billing (24201 Total Knee)
--- NOTE | 2024-10-26 10:32 | SUR.PHASEI ---
TO PRE OP RM 10 FOR EXTENDED RECOVERY AT 1030, REPORT GIVEN TO STEVEN STRANGE RN
[2024-10-26] MEDS: HYDROcodone/acetaminophen (*CRX) 7.5-325 MG TABLET 1 TAB PO ×3 (11:28→22:28)
[2024-10-26] MEDS: SODIUM CHLORIDE 0.9% IV 1,000 ML 125 ML IV CONT (11:29)
--- NOTE | 2024-10-26 11:55 | ADMGEN ---
This patient, Hussain Ch, was admitted to [facility] Surgery-1. Patient/family oriented to hospital policies and general routines including ID bracelet, bed and alarms, visiting hours, pain management, procedures, bathroom and other care routines, personal items, smoking policy, room service/diet, and visiting hours. Information on how to activate the Rapid Response Team has been discussed. Patient/Family are encouraged to report perceived risks to care and to ask questions if they do not understand what they are told or what they should do. Patient with family at bedside in Preop room 11, awaiting bed available. Pt will transfer when room is available.
--- NOTE | 2024-10-26 13:20 | PC.NURSE ---
This patient, Hussain Ch, was admitted to [facility] Surg Room 331-01. Patient/family oriented to hospital policies and general routines including ID bracelet, bed and alarms, visiting hours, pain management, procedures, bathroom and other care routines, personal items, smoking policy, room service/diet, and visiting hours. Information on how to activate the Rapid Response Team has been discussed. Patient/Family are encouraged to report perceived risks to care and to ask questions if they do not understand what they are told or what they should do.
--- NOTE | 2024-10-26 13:22 | PM.IMCN ---
Assessment and Plan Assessment and plan (1) Osteoarthritis of right knee: Qualifiers: Osteoarthritis type: primary Qualified Code(s): M17.11 - Unilateral primary osteoarthritis, right knee Code(s): M17.11 - Unilateral primary osteoarthritis, right knee Status: Acute Assessment and Plan: - ambulate with assistance and up to chair - use IS - neurovasc checks - see order for intervals - SCDs and NORMA - resume diet - antiemetics and analgesics p.r.n. - monitor labs in AM - CBC and BMP - bowel regimen: docusate/senna, polyethylene glycol - PT/OT (2) HTN (hypertension): Qualifiers: Hypertension type: primary hypertension Qualified Code(s): I10 - Essential (primary) hypertension Code(s): I10 - Essential (primary) hypertension Status: Acute Assessment and Plan: - chronic, current range: 116/63 - 171/93 - continue home medications: amlodipine, hydrochlorothiazide, spironolactone - monitor Plan Diet: Regular GI Prophylaxis: Not currently indicated DVT Prophylaxis: SCDs, NORMA, starting Xarelto on 10/26 Lines: Peripheral Code Status: Full code HPI Date of Consult Consult date: 10/26/24 Requesting Physician: Tal Greenberg MD Primary Care Provider: Zach Rhodes, Consult Narrative Reason for consult: Medical Managment Narrative: 49 y/o F presents here with twbq-dm-[id number] arthritis of her right knee with PMH of POTS, PCOS, migraines, anxiety, depression, HTN, and osteoarthritis. The patient presents here for surgical management of her ncnr-ej-avku arthritis of her right knee. She has failed conservative treatment including injections, steroid course, and PT. Last injection was in Jul. Pain in her right knee is now interfering with work, was not able to stand at her job for long periods. She underwent a total right knee arthroplasty on 10/26/2024 with Dionicio PUGH. Postoperatively she is reporting no nausea or vomiting. States she ambulated well with PT. She denies any recent changes to her home medications or past medical history. No further complaints. Preop VS: 98.8? F, HR 87, RR 18, 171/93, and 99% on RA. Preop workup: no anemia, no leukocytosis, no significant electrolyte derangements, creatinine 0.75 and GFR >60, nasal MRSA negative. PMFSH Past Medical History Medical History (Updated 10/26/24 @ 14:13 by Dang Jennings APRN) HTN (hypertension) Depression Anxiety PCOS (polycystic ovarian syndrome) Rosacea POTS (postural orthostatic tachycardia syndrome) Migraine Hypoglycemia Family History Family History Mother Family history of migraine headaches Father No problems noted. Sibling No problems noted. Social History Social History Smoking status: Never smoker Second hand tobacco smoke exposure: Yes Additional smoking assessment comments: DENIES ANY FORM OF TOBACCO USE Alcohol intake: never Substance use: never Substance use type: does not use Do You Feel Safe in your Home?: Yes Lack of Transportation: No Lack of Food: Never True Current Housing: I Have Housing Concerned About Future Housing: No Difficulty Paying Gas/Electric Bills: No Difficulty Paying for Meds: No Currently Unemployed: No Education: High School Diploma/GED Difficulty w/ Childcare or Family Care: No Living arrangements: with friend(s) Additional living arrangements comments: 2 ROOMMATES Occupation/Education: occupation Additional occupation/education comments: [employer] Gender identity (if verbalized by the patient): Female Spiritual care concerns: No Meds Home Medications and Allergies Home Medications ?Medication ?Instructions ?Recorded ?Confirmed ?Type amlodipine 5 mg tablet 5 mg PO DAILY 06/16/24 10/26/24 History citalopram 40 mg tablet 40 mg PO QAM 06/16/24 10/26/24 History cyclobenzaprine 10 mg tablet 10 mg PO PRN PRN Muscle Pain 06/16/24 08/05/24 History fluticasone propionate 50 2 spray intranasal PRN PRN Allergy 06/16/24 08/05/24 History mcg/actuation nasal Symptoms spray,suspension hydrochlorothiazide 25 mg tablet 25 mg PO HS 06/16/24 10/26/24 History loratadine 10 mg tablet 10 mg PO DAILY 06/16/24 10/26/24 History meloxicam 7.5 mg tablet 7.5 mg PO DAILY 06/16/24 10/26/24 History metronidazole 0.75 % topical gel 0.75 applic topical PRN PRN ROSACEA 06/16/24 08/05/24 History ondansetron 8 mg disintegrating 8 mg PO PRN PRN Nausea 06/16/24 08/05/24 History tablet quetiapine 25 mg tablet 25 mg PO QAM PRN insomnia 06/16/24 10/13/24 History sumatriptan succinate 50 mg tablet 50 mg PO PRN PRN Migraine Headache 06/16/24 10/26/24 History tramadol 50 mg tablet 50 mg PO PRN PRN Pain 06/16/24 10/26/24 History buspirone 10 mg tablet 10 mg PO DAILY 08/05/24 10/26/24 History polyethylene glycol 3350 17 17 g PO DAILY PRN constipation 08/05/24 10/13/24 History gram/dose oral powder spironolactone 25 mg tablet 25 mg PO DAILY 08/05/24 10/26/24 History Allergies Allergy/AdvReac Type Severity Reaction Status Date / Time No Known Allergies Allergy Verified 10/26/24 12:09 Vital Signs Vital Signs - 24 hr 10/26/24 06:09 10/26/24 09:37 10/26/24 09:50 Temperature 97.7 F 98.2 F Pulse Rate 108 H 104 H 105 H Respiratory Rate 20 12 19 Blood Pressure 177/93 H 124/74 125/78 Pulse Oximetry 98 95 94 Oxygen Delivery Room Air Simple Face Mask Simple Face Mask Oxygen Flow Rate 8 8 10/26/24 10:05 10/26/24 10:20 10/26/24 10:31 Temperature Pulse Rate 97 93 95 Respiratory Rate 18 19 16 Blood Pressure 128/74 118/81 116/63 Pulse Oximetry 92 93 95 Oxygen Delivery Room Air Room Air Room Air Oxygen Flow Rate 10/26/24 12:00 Temperature Pulse Rate 90 Respiratory Rate 16 Blood Pressure 116/70 Pulse Oximetry 98 Oxygen Delivery Oxygen Flow Rate Exam Narrative: okay. dressing CDI. minimal pain. heart and lungs fine. Const: General: comfortable and no acute distress Other: , female, nontoxic appearance HENMT: Face/Nose/Sinus: Normal nares present Mouth: Yes moist mucous membranes Eyes: General: appearance normal, both eyes and all related structures Sclera: sclerae normal Pupils: Equal, round and reactive pupils present EOM: EOMs intact bilaterally Resp: Effort & Inspection: normal respiratory effort Auscultation: clear to auscultation bilaterally Cardio: Rate: regular rate Rhythm: regular rhythm Other: S1-S2 present without murmur, rub, ectopy GI: Other: Abdomen soft, nondistended, nontender. Normoactive bowel sounds in all quadrants. Skin: General skin exam: normal color and no rashes or lesions noted Wounds: wounds noted (Postoperative incision to right knee. Dressing CDI. Minimal edema.) Neuro: Speech: normal speech Motor exam (neuro): 5/5 motor strength present throughout Sensory Exam: normal sensation Other: A&O x4 Extrem: General: normal exam except as noted Psych: Mental Status: mental status grossly normal Affect: normal affect Other: Good insight judgment, pleasant Quality VTE Prophylaxis VTE prophylaxis: mechanical ordered and pharmacologic ordered Hospitalist MIPS Advance Care Plan I have confirmed that the patient's Advanced Care Plan is present, code status is documented, or surrogate decision maker is listed in patient medical record.: Yes Medication Reconciliation I have utilized all available resources to obtain, update and review the patients current medications (includes all prescriptions, OTC, herbals, cannabis, and nutritional supplements).: Yes
--- NOTE | 2024-10-26 13:28 | PC.NURSE ---
1315- Patient transported to [address] [place] [address] room 331-01 by stretcher report given to RN ronnie, family at bedside. belongings and walker taken with patient to room.
--- NOTE | 2024-10-26 16:29 | PC.NURSE ---
On 10/26/24, the student, [Destiney Flores ], provided care and completed [facility] documentation on this patient. I have reviewed the student's documentation and agree with the findings.
[2024-10-26] MEDS: ACETAMINOPHEN 325 MG TABLET 650 MG PO (16:44)
--- NOTE | 2024-10-26 17:00 | PC.NURSE ---
Patient aníbal hose not put on . Aníbal hose at bedside.
[2024-10-26] MEDS: CELECOXIB 200 MG CAPSULE PO (17:40)
[2024-10-26] MEDS: RIVAROXABAN 10 MG TABLET PO (17:41)
[2024-10-26] MEDS: CYCLOBENZAPRINE HCL 10 MG TABLET PO (18:57)
[2024-10-26] MEDS: SPIRONOLACTONE 25 MG TABLET PO (20:19)
[2024-10-27] MEDS: HYDROcodone/acetaminophen (*CRX) 5-325 MG TABLET 1 TAB PO (03:31)
[2024-10-27 04:34] VITALS: BP 123/62; PULSE 95; RESP 18; TEMP 36.6; O2SAT 98
[2024-10-27] MEDS: CYCLOBENZAPRINE HCL 10 MG TABLET PO ×2 (05:36→12:01)
[2024-10-27] MEDS: ceFAZolin 2 GM/D5W 50 ML 2 GM/50 ML BAG IVPB (05:36)
--- NOTE | 2024-10-27 07:20 | PM.PNORT ---
Progress Note: A&P Assessment and Plan (1) History of knee replacement procedure of right knee: Code(s): Z96.651 - Presence of right artificial knee joint Status: Acute Assessment and Plan: Patient underwent total knee arthroplasty for osteoarthritis of the right knee. She has done well postoperatively and can be dismissed. Subjective Subjective Date/Time Seen: 10/27/24 07:20 Post Op day: 1 Principal diagnosis: Right total knee arthroplasty for osteoarthritis Review of Systems Musculoskeletal: Musculoskeletal: Reports arthralgias, Reports joint swelling and Reports stiffness Neurologic: Reports abnormal gait Exam Narrative: Patient wiggles toes. She is able to ambulate with a walker. Neurologically she appears to be intact. The dressing is dry and intact. Objective Data Vital Signs Vital Signs: Vital Signs - 24 hr 10/26/24 09:37 10/26/24 09:50 10/26/24 10:05 Temperature 98.2 F Pulse Rate 104 H 105 H 97 Respiratory Rate 12 19 18 Blood Pressure 124/74 125/78 128/74 Pulse Oximetry 95 94 92 Oxygen Delivery Simple Face Mask Simple Face Mask Room Air Oxygen Flow Rate 8 8 10/26/24 10:20 10/26/24 10:31 10/26/24 12:00 Temperature Pulse Rate 93 95 90 Respiratory Rate 19 16 16 Blood Pressure 118/81 116/63 116/70 Pulse Oximetry 93 95 98 Oxygen Delivery Room Air Room Air Oxygen Flow Rate 10/26/24 12:30 10/26/24 13:25 10/26/24 13:30 Temperature 98.4 F Pulse Rate 89 Respiratory Rate 16 Blood Pressure 132/60 Pulse Oximetry 99 Oxygen Delivery Room Air Room Air Oxygen Flow Rate 10/26/24 15:41 10/26/24 16:27 10/26/24 20:34 Temperature 98.2 F 97.7 F Pulse Rate 88 95 Respiratory Rate 16 18 Blood Pressure 135/69 171/81 H Pulse Oximetry 99 98 Oxygen Delivery Oxygen Flow Rate 10/26/24 23:56 10/27/24 04:34 Temperature 97.6 F 97.8 F Pulse Rate 96 95 Respiratory Rate 18 18 Blood Pressure 141/60 H 123/62 Pulse Oximetry 98 98 Oxygen Delivery Oxygen Flow Rate Intake/Output Intake/Output: Intake & Output 10/24/24 10/25/24 10/26/24 10/27/24 23:59 23:59 23:59 23:59 Intake Total 1540 1030 Balance 1540 1030 Meds/Results Medications: Active Medications Generic Name Dose Route Start Last Admin Trade Name Freq PRN Reason Stop Dose Admin Acetaminophen 650 mg 10/26/24 16:39 10/26/24 16:44 Acetaminophen 325 Mg Tablet PO 650 mg Q6H PRN Administration Mild Pain (1-3) or Fever Hydrocodone Bitart/Acetaminophen 1 tab 10/26/24 10:49 10/27/24 03:31 Hydrocodone/Acetaminophen (*Crx) 5-325 Mg Tablet PO 1 tab Q4H PRN Administration Pain Rated 4-6 Hydrocodone Bitart/Acetaminophen 1 tab 10/26/24 10:49 10/26/24 22:28 Hydrocodone/Acetaminophen (*Crx) 7.5-325 Mg Tablet PO 1 tab Q4H PRN Administration Pain Rated 7-10 Amlodipine Besylate 5 mg 10/27/24 09:00 Amlodipine Besylate 5 Mg Tablet PO DAILY MACO Buspirone HCl 10 mg 10/27/24 09:00 Buspirone Hcl 10 Mg Tablet PO DAILY MACO Celecoxib 200 mg 10/26/24 17:00 10/26/24 17:40 Celecoxib 200 Mg Capsule PO 200 mg BIDWM MACO Administration Citalopram Hydrobromide 40 mg 10/27/24 09:00 Citalopram Hydrobromide 20 Mg Tablet PO QAM MACO Cyclobenzaprine HCl 10 mg 10/26/24 10:49 10/27/24 05:36 Cyclobenzaprine Hcl 10 Mg Tablet PO 10 mg PRN PRN Administration Muscle Pain Diphenhydramine HCl 25 mg 10/26/24 10:49 Diphenhydramine Hcl Inj 50 Mg/Ml Vial IV PUSH Q6H PRN Itching Fluticasone Propionate 2 spray 10/26/24 10:49 Fluticasone Propionate 0.05% Na Spr 16 Gm Btl (*Bkc) NASAL PRN PRN Allergy Symptoms Hydrochlorothiazide 25 mg 10/26/24 21:00 10/26/24 20:20 Hydrochlorothiazide 25 Mg Tablet PO Not Given HS MACO Hydromorphone HCl 1 mg 10/26/24 10:49 Hydromorphone Hcl Inj (*Crx) 1 Mg/Ml Syr IV PUSH Q2H PRN Breakthrough Pain Rated 7-10 or NPO Hydromorphone HCl 0.5 mg 10/26/24 10:49 Hydromorphone Hcl Inj (*Crx) 1 Mg/Ml Syr IV PUSH Q2H PRN Breakthrough Pain Rated 4-6 or NPO Cefazolin Sodium 2 gm in 50 mls @ 100 mls/hr 10/26/24 15:00 10/27/24 05:36 Ancef 2 Gm/D5w 50 Ml IVPB 10/27/24 07:29 100 mls/hr Q8H MACO Administration Ibuprofen 800 mg in 200 mls @ 400 mls/hr 10/26/24 10:49 Caldolor 800 Mg/200 Ml IVPB Q6H PRN Breakthrough Pain Rated 1-3 or NPO Loratadine 10 mg 10/27/24 09:00 Loratadine 10 Mg Tablet PO DAILY MACO Metronidazole 1 applic 10/26/24 11:43 Metronidazole 0.75% Topical Gel 45 Gm TOPICAL Q12HR PRN ROSACEA Naloxone HCl 0.1 mg 10/26/24 10:49 Naloxone Hcl 0.4 Mg/Ml Vial IV PUSH Q2M PRN Opiate Reversal Ondansetron HCl 8 mg 10/26/24 11:42 Ondansetron Hcl Odt 4 Mg Tablet PO PRN PRN Nausea Ondansetron HCl 4 mg 10/26/24 10:49 Ondansetron Inj 4 Mg/2 Ml Vial IV PUSH Q4H PRN Nausea And Vomiting Polyethylene Glycol 17 gm 10/26/24 10:49 Polyethylene Glycol 3350 17 Gm Powd.Pack PO DAILY PRN constipation Polyethylene Glycol 17 gm 10/27/24 09:00 Polyethylene Glycol 3350 17 Gm Powd.Pack PO QAM MACO Quetiapine Fumarate 25 mg 10/26/24 10:49 Quetiapine Fumarate 25 Mg Tablet PO QAM PRN insomnia Rivaroxaban 10 mg 10/26/24 17:00 10/26/24 17:41 Rivaroxaban 10 Mg Tablet PO 11/06/24 17:01 10 mg DAILY@17 MACO Administration Senna/Docusate Sodium 2 tab 10/26/24 17:00 10/26/24 17:42 Senna/Docusate Sodium Tablet PO Not Given BID MACO Spironolactone 25 mg 10/26/24 21:00 10/26/24 20:19 Spironolactone 25 Mg Tablet PO 25 mg HS MACO Administration Sumatriptan Succinate 50 mg 10/26/24 10:49 Sumatriptan Succinate 25 Mg Tablet PO PRN PRN Migraine Headache Tramadol HCl 50 mg 10/26/24 10:49 Tramadol Hcl (*Crx) 50 Mg Tablet PO Q4H PRN Pain Rated 1-3 Radiology Results: ITS Impressions Knee X-Ray 10/26/24 10:16 IMPRESSION: 1. Right total knee arthroplasty, negative for postoperative purposes.
--- NOTE | 2024-10-27 07:23 | PM.DS ---
DS: Admitting Diagnosis Discharge Date 10/27/2024 Admitting Diagnosis Osteoarthritis right knee DS: Discharge Diagnosis Discharge Diagnosis (1) History of knee replacement procedure of right knee: Code(s): Z96.651 - Presence of right artificial knee joint Status: Acute Assessment and Plan: Patient underwent right total knee arthroplasty for osteoarthritis of the. She has done well postoperatively can be dismissed home. DS: Summary Hospital Course Hospital Course: Patient underwent total knee arthroplasty right. She has progressed well. She is able a ambulate with a walker and the pain is under control. We will dismiss home today. Status at Discharge Functional status at discharge: uses cane/walker Time Spent with Patient Time attestation: Total time spent providing and/or coordinating discharge services: Exam Narrative: Patient can wiggle her toes. She is ambulating with a walker. Dressing is dry and intact. She appears to be neurologically intact. Discharge Plan Discharge Patient Disposition: Home, Self-Care Discharge Instructions: Dr. Tal Greenberg M.D [facility] [address] [place] [id number] POST-OPERATIVE DISCHARGE INSTRUCTIONS TOTAL KNEE ARTHROPLASTY 1. When resting, do not rest in the chair.When resting, lie on your back, with back flat on the couch or bed, with leg elevated above heart to minimize swelling. You may put a pillow under your head. . Significant swelling could indicate a blood clot and if this occurs call the office (or go to the ER) to have a venous ultrasound. Therefore, do not rest in a chair. 2. At least five times a day spend several minutes stretching your knee into flexion while sitting in the chair and also stretching your knee out straight The abilities to bend your knee fulling and straighten your knee fully are two most important knee functions to focus on during your recovery. 3. It is ok to sit in chair to eat, use the toilet and receive a guest and to do your stretching exercises, but, sitting in a chair will cause your leg to swell. Therefore, avoid additional time sitting in the chair. and don't rest in the chair. 4. Wound Care: Nursing will give you an additional Mepilex dressing at the time of discharge. Patient to remove the dressing and apply a new Mepilex dressing at home 7 days after surgery and leave the dressing on until seen in office. 5. May shower with a Mepilex dressing in place.The water will run off the dressing. 6. Unless you are told otherwise, you may put full weight on your operated leg. Use a walker for balance and practice walking as normally as you can, ideally for a few minutes every hour while you are awake. 7. I would advise against putting ice packs on your knee incision. Ice constricts blood flow which can impar healing of the knee incision. IMPORTANT: Remember not to sit in the chair for more than 30 minutes at a time. As a rule, during the first 14 days after surgery, only sit in the chair to work on the chair knee bending stretch exercise, for meals or for use of the restroom. Sitting in the chair promotes significant swelling in the knee and leg which will make your knee stiff and more painful and which simulates having a blood clot in the veins of the leg. If this type of significant diffuse swelling occurs, an ultrasound at the hospital will be necessary to rule out a blood clot. Be up walking around with the walker for a few minutes every hour while awake and then rest laying on your back on the couch or in bed with your leg elevated on cushions or pillows. Do not rest in the chair. Patient Instructions: Rivaroxaban (By mouth) Patient Language: Citizen Of [place] Stand Alone Forms: General Discharge Instructions Follow-up/Referrals: Tal Greenberg MD [Physician] - Discharge Medications: New doxycycline hyclate 100 mg tablet 100 mg PO DAILY Qty: 10 0RF hydrocodone-acetaminophen 7.5-325 mg tablet 1 tablet PO Q4H PRN (Reason: pain) Qty: 40 0RF Xarelto 10 mg tablet 10 mg PO DAILY Qty: 10 0RF Rx Instructions: for 10 days Continued loratadine 10 mg tablet 10 mg PO DAILY hydrochlorothiazide 25 mg tablet 25 mg PO HS Patient Comments: [employer], TAKES AT NIGHT ondansetron 8 mg tablet,disintegrating 8 mg PO PRN PRN (Reason: Nausea) sumatriptan succinate 50 mg tablet 50 mg PO PRN PRN (Reason: Migraine Headache) quetiapine 25 mg tablet 25 mg PO QAM PRN (Reason: insomnia) Patient Comments: STATES SHE TAKES NEEDED FOR SLEEP meloxicam 7.5 mg tablet 7.5 mg PO DAILY tramadol 50 mg tablet 50 mg PO PRN PRN (Reason: Pain) amlodipine 5 mg tablet 5 mg PO DAILY Patient Comments: stefani citalopram 40 mg tablet 40 mg PO QAM metronidazole 0.75 % gel 0.75 applic topical PRN PRN (Reason: ROSACEA) cyclobenzaprine 10 mg tablet 10 mg PO PRN PRN (Reason: Muscle Pain) fluticasone propionate 50 mcg/actuation spray,suspension 2 spray intranasal PRN PRN (Reason: Allergy Symptoms) spironolactone 25 mg tablet 25 mg PO DAILY Patient Comments: WORKS NIGHTS, TAKES AT NIGHT polyethylene glycol 3350 17 gram/dose powder 17 g PO DAILY PRN (Reason: constipation) buspirone 10 mg tablet 10 mg PO DAILY Patient Comments: STEFANI
[2024-10-27 07:37] LABS: Basophils Percent Auto 0.3 % (0.2-1.2); Hematocrit 35.6 % (37.0-47.0); Hemoglobin 11.3 g/dL (12.0-15.0); Immature Granulocyte Percent A 0.7 % (0-0.5); Lymphocytes Absolute Auto 1.39 K/mm3 (0.9-3.2); Lymphocytes Percent Auto 9.8 % (18.3-44.2); Mean Corpuscular HGB Conc 31.7 g/dl (32-36); Mean Corpuscular Hemoglobin 28.1 pg (26-34); Mean Corpuscular Volume 88.6 fl (80-100); Mean Platelet Volume 11.3 fl (7.4-10.4); Monocytes Absolute Auto 1.1 K/mm3 (0.1-0.6); Monocytes Percent Auto 7.9 % (2.6-8.5); Neutrophils Absolute Auto 11.5 K/mm3 (1.3-6.7); Neutrophils Percent Auto 81.3 % (45.5-73.1); Platelet Count Result 231 k/mm3 (150-375); Red Blood Count 4.02 M/mm3 (4.2-5.4); Red Cell Distribution Width 13.3 % (11.5-14.5); White Blood Count 14.1 K/mm3 (4.5-10.0)
[2024-10-27 07:46] LABS: Anion Gap 10 mmol/L (4-12); Blood Urea Nitrogen 11 mg/dL (7-17); Calcium 8.7 mg/dL (8.4-10.2); Carbon Dioxide 23 mmol/L (22-30); Chloride 104 mmol/L (98-107); Estimated CRCL calculation 91 ml/min; Estimated Glomerular Filt Rate > 60; Glucose 116 mg/dL (65-110); Potassium 4.4 mmol/L (3.4-5.0); Sodium 137 mmol/L (137-145)
--- NOTE | 2024-10-27 07:53 | PCOTNOTE ---
Patient refused treatment this session. Patient reports she has a friend that is a nurse and will be staying with her. Patient reports she does not want occupational therapy and feels confidant in her ability to complete her ADLs.
[2024-10-27] MEDS: LORATADINE 10 MG TABLET PO (08:09)
[2024-10-27] MEDS: HYDROcodone/acetaminophen (*CRX) 7.5-325 MG TABLET 1 TAB PO (08:09)
[2024-10-27] MEDS: CELECOXIB 200 MG CAPSULE PO (08:09)
[2024-10-27] MEDS: CITALOPRAM HYDROBROMIDE 20 MG TABLET 40 MG PO (08:09)
[2024-10-27] MEDS: SENNA/DOCUSATE SODIUM TABLET 2 TAB PO (08:09)
[2024-10-27] MEDS: busPIRone HCL 10 MG TABLET PO (08:11)
[2024-10-27] MEDS: amLODIPine BESYLATE 5 MG TABLET PO (08:11)
[2024-10-27 08:34] VITALS: BP 141/87; PULSE 81; RESP 18; TEMP 36.8; O2SAT 99
--- NOTE | 2024-10-27 09:33 | PM.IMPN ---
Progress Note: A&P Assessment and Plan (1) Osteoarthritis of right knee: Qualifiers: Osteoarthritis type: primary Qualified Code(s): M17.11 - Unilateral primary osteoarthritis, right knee Code(s): M17.11 - Unilateral primary osteoarthritis, right knee Status: Acute Assessment and Plan: Postop day 1 from right total knee replacement Continue PT and OT Continue incentive spirometry while awake May use ice and elevate Continue pain control (2) HTN (hypertension): Qualifiers: Hypertension type: primary hypertension Qualified Code(s): I10 - Essential (primary) hypertension Code(s): I10 - Essential (primary) hypertension Status: Acute Assessment and Plan: Blood pressure ranging 123/62 to 171/81 Continue amlodipine, hydrochlorothiazide, spironolactone Time Spent With Patient Time with patient: 25 - 35 minutes Subjective Date/time seen: 10/27/24 09:33 Interval history: Interval history: This is a 49-year-old female with significant past medical history of hypertension, depression, anxiety, PCOS, rosacea, pots, migraine who presented to the hospital on 10/26/2024 for elective right total knee replacement with Dr. Greenberg. Subjective: Patient denies any new complaints today. She states her pain is well controlled. Plan is for her to be discharged today with outpatient PT and OT. Labs and imaging reviewed. Review of Systems Review of Systems: All systems reviewed & are unremarkable except as noted in HPI and below Exam Narrative: General: In no acute distress, well nourished Head: atraumatic, no encephalopathy Eyes: PERRLA, sclera clear ENT: moist mucous membranes, nasal passages clear Neck: supple, no JVD, no adenopathy, trachea midline Cardiac: Normal S1 and S2. No murmur, gallops or friction rubs, peripheral pulses intact. Respiratory: Lungs clear to auscultation, no adventitious lung sounds, currently on room air Gastrointestinal: soft, non-distended, non-tender, normoactive bowel sounds. : voiding without difficulty. Extremities: moves all extremities well, no edema, good ROM, strength 5/5 Skin: right knee OR dressing in place Neuro: Alert and oriented x4, cranial nerves intact, no neuro deficits. Psych: normal mood, normal affect, interactive Objective Data Vital Signs Vital Signs: Vital Signs - 24 hr 10/26/24 09:37 10/26/24 09:50 10/26/24 10:05 Temperature 98.2 F Pulse Rate 104 H 105 H 97 Respiratory Rate 12 19 18 Blood Pressure 124/74 125/78 128/74 Pulse Oximetry 95 94 92 Oxygen Delivery Simple Face Mask Simple Face Mask Room Air Oxygen Flow Rate 8 8 10/26/24 10:20 10/26/24 10:31 10/26/24 12:00 Temperature Pulse Rate 93 95 90 Respiratory Rate 19 16 16 Blood Pressure 118/81 116/63 116/70 Pulse Oximetry 93 95 98 Oxygen Delivery Room Air Room Air Oxygen Flow Rate 10/26/24 12:30 10/26/24 13:25 10/26/24 13:30 Temperature 98.4 F Pulse Rate 89 Respiratory Rate 16 Blood Pressure 132/60 Pulse Oximetry 99 Oxygen Delivery Room Air Room Air Oxygen Flow Rate 10/26/24 15:41 10/26/24 16:27 10/26/24 20:34 Temperature 98.2 F 97.7 F Pulse Rate 88 95 Respiratory Rate 16 18 Blood Pressure 135/69 171/81 H Pulse Oximetry 99 98 Oxygen Delivery Oxygen Flow Rate 10/26/24 23:56 10/27/24 04:34 Temperature 97.6 F 97.8 F Pulse Rate 96 95 Respiratory Rate 18 18 Blood Pressure 141/60 H 123/62 Pulse Oximetry 98 98 Oxygen Delivery Oxygen Flow Rate Intake/Output Intake/Output: Intake & Output 10/24/24 10/25/24 10/26/24 10/27/24 23:59 23:59 23:59 23:59 Intake Total 1540 1030 Balance 1540 1030 Meds/Results Medications: Active Medications Generic Name Dose Route Start Last Admin Trade Name Freq PRN Reason Stop Dose Admin Acetaminophen 650 mg 10/26/24 16:39 10/26/24 16:44 Acetaminophen 325 Mg Tablet PO 650 mg Q6H PRN Administration Mild Pain (1-3) or Fever Hydrocodone Bitart/Acetaminophen 1 tab 10/26/24 10:49 10/27/24 03:31 Hydrocodone/Acetaminophen (*Crx) 5-325 Mg Tablet PO 1 tab Q4H PRN Administration Pain Rated 4-6 Hydrocodone Bitart/Acetaminophen 1 tab 10/26/24 10:49 10/27/24 08:09 Hydrocodone/Acetaminophen (*Crx) 7.5-325 Mg Tablet PO 1 tab Q4H PRN Administration Pain Rated 7-10 Amlodipine Besylate 5 mg 10/27/24 09:00 10/27/24 08:11 Amlodipine Besylate 5 Mg Tablet PO 5 mg DAILY MACO Administration Buspirone HCl 10 mg 10/27/24 09:00 10/27/24 08:11 Buspirone Hcl 10 Mg Tablet PO 10 mg DAILY MACO Administration Celecoxib 200 mg 10/26/24 17:00 10/27/24 08:09 Celecoxib 200 Mg Capsule PO 200 mg BIDWM MACO Administration Citalopram Hydrobromide 40 mg 10/27/24 09:00 10/27/24 08:09 Citalopram Hydrobromide 20 Mg Tablet PO 40 mg QAM MACO Administration Cyclobenzaprine HCl 10 mg 10/26/24 10:49 10/27/24 05:36 Cyclobenzaprine Hcl 10 Mg Tablet PO 10 mg PRN PRN Administration Muscle Pain Diphenhydramine HCl 25 mg 10/26/24 10:49 Diphenhydramine Hcl Inj 50 Mg/Ml Vial IV PUSH Q6H PRN Itching Fluticasone Propionate 2 spray 10/26/24 10:49 Fluticasone Propionate 0.05% Na Spr 16 Gm Btl (*Bkc) NASAL PRN PRN Allergy Symptoms Hydrochlorothiazide 25 mg 10/26/24 21:00 10/26/24 20:20 Hydrochlorothiazide 25 Mg Tablet PO Not Given HS [facility] Hydromorphone HCl 1 mg 10/26/24 10:49 Hydromorphone Hcl Inj (*Crx) 1 Mg/Ml Syr IV PUSH Q2H PRN Breakthrough Pain Rated 7-10 or NPO Hydromorphone HCl 0.5 mg 10/26/24 10:49 Hydromorphone Hcl Inj (*Crx) 1 Mg/Ml Syr IV PUSH Q2H PRN Breakthrough Pain Rated 4-6 or NPO Ibuprofen 800 mg in 200 mls @ 400 mls/hr 10/26/24 10:49 Caldolor 800 Mg/200 Ml IVPB Q6H PRN Breakthrough Pain Rated 1-3 or NPO Loratadine 10 mg 10/27/24 09:00 10/27/24 08:09 Loratadine 10 Mg Tablet PO 10 mg DAILY MACO Administration Metronidazole 1 applic 10/26/24 11:43 Metronidazole 0.75% Topical Gel 45 Gm TOPICAL Q12HR PRN ROSACEA Naloxone HCl 0.1 mg 10/26/24 10:49 Naloxone Hcl 0.4 Mg/Ml Vial IV PUSH Q2M PRN Opiate Reversal Ondansetron HCl 8 mg 10/26/24 11:42 Ondansetron Hcl Odt 4 Mg Tablet PO PRN PRN Nausea Ondansetron HCl 4 mg 10/26/24 10:49 Ondansetron Inj 4 Mg/2 Ml Vial IV PUSH Q4H PRN Nausea And Vomiting Polyethylene Glycol 17 gm 10/26/24 10:49 Polyethylene Glycol 3350 17 Gm Powd.Pack PO DAILY PRN constipation Polyethylene Glycol 17 gm 10/27/24 09:00 10/27/24 08:08 Polyethylene Glycol 3350 17 Gm Powd.Pack PO Not Given QAM MACO Quetiapine Fumarate 25 mg 10/26/24 10:49 Quetiapine Fumarate 25 Mg Tablet PO QAM PRN insomnia Rivaroxaban 10 mg 10/26/24 17:00 10/26/24 17:41 Rivaroxaban 10 Mg Tablet PO 11/06/24 17:01 10 mg DAILY@17 MACO Administration Senna/Docusate Sodium 2 tab 10/26/24 17:00 10/27/24 08:09 Senna/Docusate Sodium Tablet PO 2 tab BID MACO Administration Spironolactone 25 mg 10/26/24 21:00 10/26/24 20:19 Spironolactone 25 Mg Tablet PO 25 mg HS MACO Administration Sumatriptan Succinate 50 mg 10/26/24 10:49 Sumatriptan Succinate 25 Mg Tablet PO PRN PRN Migraine Headache Tramadol HCl 50 mg 10/26/24 10:49 Tramadol Hcl (*Crx) 50 Mg Tablet PO Q4H PRN Pain Rated 1-3 Radiology Results: ITS Impressions Knee X-Ray 10/26/24 10:16 IMPRESSION: 1. Right total knee arthroplasty, negative for postoperative purposes. Labs Labs: Laboratory Results - last 24 hr 10/27/24 07:12 WBC 14.1 H RBC 4.02 L Hgb 11.3 L D Hct 35.6 L MCV 88.6 MCH 28.1 MCHC 31.7 L RDW 13.3 Plt Count 231 MPV 11.3 H Immature Gran % (Auto) 0.7 H Neut % (Auto) 81.3 H Lymph % (Auto) 9.8 L Alfalfa % (Auto) 7.9 Eos % (Auto) 0.0 Baso % (Auto) 0.3 Lymph # (Auto) 1.39 Alfalfa # (Auto) 1.1 H Eos # (Auto) 0.0 Baso # (Auto) 0.0 Abs Immat Gran (auto) 0.10 H Absolute Neuts (auto) 11.5 H Absolute Nucleated RBC 0.000 Nucleated RBC % 0.0 Sodium 137 Potassium 4.4 Chloride 104 Carbon Dioxide 23 Anion Gap 10 BUN 11 Creatinine 0.73 Estim Creat Clear Calc 91 Estimated GFR > 60 Glucose 116 H Calcium 8.7 Quality VTE Prophylaxis VTE prophylaxis: mechanical ordered and pharmacologic ordered
--- NOTE | 2024-10-27 14:39 | PCPTNOTE ---
On 10/27/24, the student, JENNA Ponce, provided care and completed [facility] documentation on this patient. I have reviewed the student's documentation and agree with the findings.
== END 2024-10-27 12:35 | disposition home or self-care (01) ==
LOC: ANHSURGERY 05:44 → ANHSUROVER 11:04 → ANH3MEDSUR 13:15
PROVIDERS: Orthopaedic Surgery; PCP Family Medicine; Visit Provider Nurse Practitioner Acute Care
PROC: (CPT 27447; principal; 2024-10-26 07:30)
DX: M17.11 Unilateral primary osteoarthritis, right knee (principal); G89.18 Other acute postprocedural pain; E66.9 Obesity, unspecified; Z68.38 Body mass index [BMI] 38.0-38.9, adult
CPT/HCPCS: 27447; 64447; 36415; 73560; 80048; 85025; 94667; 97110; 97116; 97161; 97165; 97530; A9270; C1713; C1776; J0171; J0690; J1100; J1171; J1885; J2003; J2250; J2270; J2405; J2704; J2795; J3010; J3370; J7030; J7120